=== PATIENT | female | born 1980 | race Caucasian/White ===

== ENCOUNTER 2021-09-29 13:24 | Emergency (ER) | payer OTHER, SELFPAY ==
[2021-09-29 13:32] VITALS: BP 144/77; PULSE 102; RESP 17; TEMP 36.4; O2SAT 100
--- NOTE | 2021-09-29 14:52 | ED.EAR ---
HPI - Ear Problem General Chief complaint: Ear Stated complaint: multiple complaints Time Seen by Provider: 09/29/21 13:47 History of Present Illness HPI Narrative: Patient is a 41-year-old female who presents ER with concerns of right ear pain. Ongoing over the last few days. Is been associate with sinus congestion sore throat. No cough. She notices some increased lymphadenopathy in her neck. She reports she has had a sinus infection for a while but now she is concerned something different is going on. Reports chronic tinnitus that is unchanged related to this pain. She has no fevers or chills or sweats. No difficulty with breathing or swallowing. She has been taking daily antihistamines. She is unable to take Flonase due to nosebleeds. Related Data Allergies Allergy/AdvReac Type Severity Reaction Status Date / Time artichoke Allergy Severe HIVES Verified 09/29/21 13:35 morphine Allergy Severe BURNING AT Verified 09/29/21 13:35 THE SITE NSAIDS (Non-Steroidal Allergy Severe ASTHMA/HIVE Verified 09/29/21 13:35 Anti-Inflamma S peanut Allergy Severe HIVES Verified 09/29/21 13:35 Sulfa (Sulfonamide Allergy Severe ASTHMA/HIVE Verified 09/29/21 13:35 Antibiotics) S tramadol Allergy Severe HIVES Verified 09/29/21 13:35 latex Allergy Intermediate Rash Verified 09/29/21 13:35 pomegranate Allergy Intermediate HIVES Verified 09/29/21 13:35 aspirin Allergy Mild Dyspnea / Verified 09/29/21 13:35 SOB blue dye Allergy Mild Unknown Verified 09/29/21 13:35 codeine Allergy Mild Dyspnea / Verified 09/29/21 13:35 SOB ibuprofen Allergy Mild Unknown Verified 09/29/21 13:35 peanut oil Allergy Mild Unknown Verified 09/29/21 13:35 Penicillins Allergy Mild Unknown Verified 09/29/21 13:35 NEPALESE SAUSAGE Allergy Severe DIARRHEA/HI Uncoded 10/12/16 04:03 VES TILAPIA Allergy Severe SWOLLEN Uncoded 10/12/16 04:03 GLANDS Cueto Armnedariz Allergy Intermediate SORE THROAT Uncoded 10/12/16 04:03 BLUEBERRIES Allergy Mild Unknown Uncoded 09/29/21 13:35 Review of Systems Constitutional: Constitutional: Denies chills, Denies fever(s) and Denies weakness ENT: Denies dizziness, Reports nasal congestion and Reports sore throat Comments: Right ear discomfort, bilateral tinnitus chronic Respiratory: Respiratory: Denies cough, Denies dyspnea and Denies wheezing PMF Past Medical History Medical History (Updated 09/29/21 @ 15:00 by Miah Tran MD) Anxiety Depression Hypercholesterolemia Hypertension Surgical History Surgical History (Updated 09/29/21 @ 15:00 by Miah Tran MD) History of section Exam Narrative: GENERAL: Well-appearing, morbidly obese, and in no acute distress. HEAD: Normocephalic, atraumatic. EYES: PERRL and EOMI. ENT: Mucous membranes moist. Mild pharyngeal erythema without tonsillar hypertrophy or exudate. Uvula midline and nonedematous. Ear canals free of cerumen bilaterally. Tympanic membranes normal in appearance and nonbulging. NECK: Supple. CHEST: Clear to auscultation. No respiratory distress. HEART: Regular rate and rhythm. Normal peripheral pulses. EXTREMITIES: Normal range of motion. No edema. NEURO: Alert and oriented x3. PSYCH: Normal mood and affect. Course Course Emergency Course: Strep negative. Recommend supportive care with [id number] medications. Vital Signs Vital signs: Vital Signs Temperature 97.6 F 09/29/21 13:32 Pulse Rate 102 H 09/29/21 13:32 Respiratory Rate 17 09/29/21 13:32 Blood Pressure 144/77 H 09/29/21 13:32 Pulse Oximetry 100 09/29/21 13:32 Temperature 97.6 F 09/29/21 13:32 Pulse Rate 102 H 09/29/21 13:32 Respiratory Rate 17 09/29/21 13:32 Blood Pressure 144/77 H 09/29/21 13:32 Pulse Oximetry 100 09/29/21 13:32 Medical Decision Making Vital Signs Vital Signs: Vital Signs Temperature 97.6 F 09/29/21 13:32 Pulse Rate 102 H 09/29/21 13:32 Respiratory Rate 17 09/29/21 13:32 Blood Pres
== END 2021-09-29 15:07 | disposition home or self-care (01) ==
PROVIDERS: Emergency Provider Emergency Medicine; PCP Emergency Medicine
DX: J06.9 Acute upper respiratory infection, unspecified (principal); E78.00 Pure hypercholesterolemia, unspecified; I10 Essential (primary) hypertension
CPT/HCPCS: 87081; 87880; 99283

== ENCOUNTER 2021-11-03 16:32 | Inpatient (IN) | payer OTHER, SELFPAY ==
[2021-11-03] VITALS (12 sets, daily range): BP systolic 111–125; BP diastolic 55–85; PULSE 88–103; RESP 16–22; TEMP 36.6; O2SAT 90–98
--- NOTE | ~2021-11-03 | XR_ITS ---
EXAMINATION: XR chest 2V DATE: 11/09/2021 10:03 INDICATION: Left lung abscess TECHNIQUE: PA and lateral views of the chest were obtained. COMPARISON: Chest radiograph dated 11/07/[address] dated 11/03/2021 FINDINGS: Slight improvement in airspace opacities in the left lower lobe corresponding to cavitary pneumonia o n prior CT. No new airspace opacities, pulmonary edema, pleural effusion or pneumothorax. The cardiom ediastinal silhouette is normal. Mild thoracic spondylosis with chronic mild anterior wedging of a fe w lower thoracic vertebral bodies. IMPRESSION: 1. Slight improvement in left lower lobar cavitary pneumonia. Reviewed, dictated and finalized at location B.
--- NOTE | ~2021-11-03 | XR_ITS ---
EXAMINATION: XR chest 2V DATE: 11/07/2021 08:33 INDICATION: Pneumonia. Cough. TECHNIQUE: Frontal and lateral views of the chest were obtained. COMPARISON: Chest 2 views 11/03/2021, chest CT 11/03/2021 FINDINGS: There are airspace opacities with cavitation in left lower lobe. No pleural effusion or pne umothorax. The heart size is normal. IMPRESSION: 1. Stable cavitary pneumonia involving left lung lower lobe. Follow-up radiographs are recommended in a few weeks to confirm resolution and exclude malignancy. Reviewed, dictated and finalized at location A. IMPRESSION: 1. Stable cavitary pneumonia involving left lung lower lobe. Follow-up radiogra phs are recommended in a few weeks to confirm resolution and exclude malignancy .
--- NOTE | ~2021-11-03 | XR_ITS ---
EXAMINATION: XR chest 2V Exam Date/Time: 11/03/2021 17:43 CDT HISTORY: cough, SOB, recent covid 10/26 Comparison: 06/04/2005. RESULT: Lines, tubes, and devices: None. Lungs and pleura: Large, 5.8 cm air-fluid level containing air cyst in the left midlung, likely the left lower lobe, with peripheral consolidation. Cardiomediastinal silhouette: Stable cardiomediastinal silhouette. Other: No acute osseous or upper abdominal finding. IMPRESSION: Findings suspicious for cavitary pneumonia in the left lower lobe, consider CT of the chest for furth er evaluation. Reviewed, dictated and finalized at location K. IMPRESSION: Findings suspicious for cavitary pneumonia in the left lower lobe, consider CT of the chest for further evaluation.
--- NOTE | ~2021-11-03 | CT_ITS ---
EXAMINATION: CT diagnostic chest w con DATE: 11/03/2021 20:06 INDICATION: +/-cavitary PNA on XR, approved by [employer] TECHNIQUE: Computed tomography (CT) of the chest was performed with 100 mL Omnipaque-350 intravenous contrast. Automated exposure control and iterative reconstruction technique were employed. The dose-l ength product was 1023.55 mGy-cm. COMPARISON: X-ray chest, same date. FINDINGS: CHEST: Thoracic aorta: No significant dilation or calcification. Lung parenchyma and airways: The airways are clear. Large irregular and lobulated thick-walled and pa rtially fluid-filled cavitary lesion in the left lower lobe measuring 6.6 x 9.7 x 6.2 cm, with surrou nding peribronchial vascular, centrilobular opacities and septal thickening. Thoracic inlet, axillae and chest wall: No thyroid or soft tissue mass. No axillary lymphadenopathy. Mediastinum: No mass or lymphadenopathy. Small hiatal hernia. Calcified hilar nodes. Heart and pericardium: Normal heart size. No pericardial effusion. Coronary artery calcifications: Absent. Pleura: No effusion or mass. Upper abdomen: Cholestatic. Splenomegaly. Thoracic bones: No acute osseous finding in the chest. IMPRESSION: Large left lower lobe cavitary lesion, likely representing necrotizing pneumonia. This should be foll owed after appropriate therapy to ensure resolution. Splenomegaly. Reviewed, dictated and finalized at location K. IMPRESSION: Large left lower lobe cavitary lesion, likely representing necrotizing pneumoni a. This should be followed after appropriate therapy to ensure resolution. Sple nomegaly.
--- NOTE | 2021-11-03 17:11 | ED.GENADULT ---
HPI - General Adult General Chief complaint: Unspecified <Carla Garnett PA-C - Last Filed: 11/04/21 02:14> Stated complaint: I don't know why I'm hoarse <NEGRA Kline Last Filed: 11/04/21 02:14> Time Seen by Provider: 11/03/21 16:54 <NEGRA Kline Last Filed: 11/04/21 02:14> Source: patient <NEGRA Kline Last Filed: 11/04/21 02:14> Mode of arrival: ambulatory <NEGRA Kline Last Filed: 11/04/21 02:14> Limitations: no limitations <NEGRA Kline Last Filed: 11/04/21 02:14> History of Present Illness HPI narrative: Patient is a 41-year-old female who presents to the ED with report of cough and difficulty breathing. Patient reports she was admitted to [facility] last week and diagnosed with COVID-19 pneumonia. She states she was started on IV Clindamycin while she was at [place] and discharged home on the with PO Clinda. She stated it gave her stomach upset, so she stopped taking it. She quarantined at home until the , but has had increasing productive cough and difficulty breathing since being at home. She does have a history of asthma and has been using her albuterol inhaler without relief. She does not have nebulizers at home. Denies any chest pain. Denies any fever, chills, abdominal pain, nausea, vomiting. She has had congestion, hoarseness, and lower extremity swelling. She states she was diagnosed with cardiomegaly and possible heart failure in the past, and did have an echocardiogram but never heard the results of these. She was also on diuretic therapy while admitted at [facility], but was not discharged home on anything. <Carla Garnett PA-C - Last Filed: 11/04/21 02:14> Related Data Home medications: Home Medications Medication Instructions Recorded Confirmed albuterol sulfate 2.5 mg/3 mL ml 11/03/21 (0.083 %) solution for nebulization cetirizine 10 mg tablet tablet 11/03/21 clindamycin HCl 150 mg capsule cap 11/03/21 diltiazem HCl 120 mg cap PO 11/03/21 capsule,extended release 24 hr (Cardizem CD) famotidine 20 mg tablet tablet 11/03/21 11/03/21 mometasone-formoterol HFA 200 inh inhalation 11/03/21 mcg-5 mcg/actuation aerosol inhaler (Dulera) <Carla Garnett PA-C - Last Filed: 11/04/21 02:14> Allergies/adverse reactions: Allergies Allergy/AdvReac Type Severity Reaction Status Date / Time artichoke Allergy Severe HIVES Verified 11/03/21 16:42 morphine Allergy Severe BURNING AT Verified 11/03/21 16:42 THE SITE NSAIDS (Non-Steroidal Allergy Severe ASTHMA/HIVE Verified 11/03/21 16:42 Anti-Inflamma S peanut Allergy Severe HIVES Verified 11/03/21 16:42 Sulfa (Sulfonamide Allergy Severe ASTHMA/HIVE Verified 11/03/21 16:42 Antibiotics) S tramadol Allergy Severe HIVES Verified 11/03/21 16:42 latex Allergy Intermediate Rash Verified 11/03/21 16:42 pomegranate Allergy Intermediate HIVES Verified 11/03/21 16:42 aspirin Allergy Mild Dyspnea / Verified 11/03/21 16:42 SOB blue dye Allergy Mild Unknown Verified 11/03/21 16:42 codeine Allergy Mild Dyspnea / Verified 11/03/21 16:42 SOB ibuprofen Allergy Mild Unknown Verified 11/03/21 16:42 peanut oil Allergy Mild Unknown Verified 11/03/21 16:42 Penicillins Allergy Mild Unknown Verified 11/03/21 16:42 THAI SAUSAGE Allergy Severe DIARRHEA/HI Uncoded 10/12/16 04:03 VES TILAPIA Allergy Severe SWOLLEN Uncoded 10/12/16 04:03 GLANDS Cueto Armendariz Allergy Intermediate SORE THROAT Uncoded 10/12/16 04:03 BLUEBERRIES Allergy Mild Unknown Uncoded 09/29/21 13:35 <Carla Garnett PA-C - Last Filed: 11/04/21 02:14> Review of Systems Review of Systems: CONSTITUTIONAL: Denies fever, chills, or sweats. ENT: Reports ST, hoarseness, rhinorrhea, congestion. CARDIOVASCULAR: Reports BLE edema. Denies chest pain. RESPIRATORY: Reports productive cough and dyspnea. GASTROINTESTINAL: Denies abdominal pain, nausea
--- NOTE | 2021-11-03 17:30 | ECG_ITS ---
Measurements Intervals [place] Rate: 86 P: 7 CA: 123 QRS: 9 QRSD: 72 T: 32 QT: 349 QTc: 419 Interpretive Statements SINUS RHYTHM LOW QRS VOLTAGE IN PRECORDIAL LEADS BORDERLINE ECG NO PREVIOUS ECG AVAILABLE FOR COMPARISON Electronically Signed On 11-04-2021 9:15:11 CDT by Rhett Caceres M.D.
[2021-11-03 18:25] LABS: Appearance Urine Slightly Cloudy (Clear); Bilirubin Urine Negative (Negative); Blood Urine 2+ (Negative); Color Urine Yellow (Yellow); Glucose Urine UA Negative (Negative); Ketones Urine Negative (Negative); Leukocyte Esterase Ur 3+ LEU/UL (Negative); Nitrate Urine Negative (Negative); Protein Urine 1+ mg/dL (Negative); Specific Grav Ur 1.015 (1.001-1.035); Urobilinogen Urine 0.2 mg/dL (<2.0); pH Urine 8.5 (5.0-9.0)
[2021-11-03 18:29] LABS: Bacteria Urine Trace /hpf; Mucus Urine Rare /lpf; RBC Urine 21-50 /hpf (0-2); Squamous Epithelial Cell Urine Many /hpf (Few); WBC Urine 51-75 /hpf
[2021-11-03 18:32] LABS: Add Urine Microscopic? YES
[2021-11-03 18:32] LABS: Alanine Aminotransferase 22 U/L (6-35); Albumin Level 3.5 g/dL (3.5-5.1); Alkaline Phosphatase 120 U/L (38-126); Anion Gap 1 mmol/L (8-16); Aspartate Amino Transferase 37 U/L (14-36); Bilirubin,Total 0.3 mg/dL (0.2-1.3); Blood Urea Nitrogen 9 mg/dL (7-17); Carbon Dioxide 38 mmol/L (22-30); Chloride 97 mmol/L (98-107); Estimated CRCL calculation 107 ml/min; Estimated Glomerular Filt Rate > 60; Glucose 96 mg/dL (65-110); Potassium 4.8 mmol/L (3.4-5.0); Sodium 136 mmol/L (137-145)
[2021-11-03 18:44] LABS: Basophils Absolute Auto 0.1 K/mm3 (0.0-0.1); Basophils Percent Auto 0.4 % (0.2-1.2); Eosinophils Absolute Auto 0.3 K/mm3 (0-0.3); Eosinophils Percent Auto 1.7 % (0-4.4); Hematocrit 35.5 % (37.0-47.0); Hemoglobin 10.4 g/dL (12.0-15.0); Immature Granulocyte Absolute 0.18 K/mm3 (0.00-0.031); Immature Granulocyte Percent A 1.1 % (0-0.5); Lymphocytes Percent Auto 10.1 % (18.3-44.2); Mean Corpuscular HGB Conc 29.3 g/dl (32-36); Mean Corpuscular Hemoglobin 25.7 pg (26-34); Mean Corpuscular Volume 87.7 fl (80-100); Mean Platelet Volume 9.4 fl (7.4-10.4); Monocytes Absolute Auto 0.9 K/mm3 (0.1-0.6); Monocytes Percent Auto 5.6 % (2.6-8.5); Neutrophils Absolute Auto 13.6 K/mm3 (1.3-6.7); Neutrophils Percent Auto 81.1 % (45.5-73.1); Platelet Count Result 435 k/mm3 (150-375); Red Blood Count 4.05 M/mm3 (4.2-5.4); Red Cell Distribution Width 16.7 % (11.5-14.5); White Blood Count 16.8 K/mm3 (4.5-10.0)
[2021-11-03 18:56] LABS: NT Pro B Type Natriuretic Pept 104 pg/mL (5-100); Troponin I < 0.012 ng/mL (0.000-0.034)
--- NOTE | 2021-11-03 19:17 | PC.NURSE ---
Report received from SAVANA Earl. This nurse assumed care of patient at this time.
--- NOTE | 2021-11-03 19:32 | PC.NURSE ---
Patient voices concerns about her plan of care, requests to speak to provider. Mariola, notified.
--- NOTE | 2021-11-03 20:01 | PC.NURSE ---
Patient in imaging at this time.
[2021-11-03 20:26] LABS: Lactic Acid Reflex 1.1 mmol/L (0.7-2.0)
[2021-11-04] VITALS (38 sets, daily range): BP systolic 95–151; BP diastolic 47–120; PULSE 78–98; RESP 14–20; TEMP 36.6–36.7; O2SAT 91–100
--- NOTE | 2021-11-04 00:43 | PC.NURSE ---
Patient repositioned in the bed. Patient states she needs a cpap at night, states does not have one at home. Patient agreeable to wear 2L O2 via NC while resting here. ERP notified. Patient tolerating well.
--- NOTE | 2021-11-04 03:02 | PC.NURSE ---
Patient ambulates to the bathroom and back to her room with an even steady unassisted gait.
[2021-11-04] MEDS: ACETAMINOPHEN 500 MG TABLET 1000 MG PO ×2 (03:12→16:55)
--- NOTE | 2021-11-04 05:12 | PC.NURSE ---
called [facility] transfer to check on [facility] availability. [facility] still at capacity.
--- NOTE | 2021-11-04 12:12 | PC.NURSE ---
Patient states she does not want any lunch and is not hungry.
--- NOTE | 2021-11-04 15:38 | PC.NURSE ---
Spoke to [facility] transfer center, still awaiting bed placement.
--- NOTE | 2021-11-04 16:46 | PC.NURSE ---
Patient states she still does not have an appetite at this time. A box of Cheez-it and soda noted in ED room
--- NOTE | 2021-11-04 23:06 | PC.NURSE ---
Report received from SAVANA Mcbride. This nurse assumed care of patient at this time.
[2021-11-05] VITALS (7 sets, daily range): BP systolic 88–123; BP diastolic 51–84; PULSE 70–97; RESP 13–20; TEMP 36.6–37.3; O2SAT 94–99
--- NOTE | 2021-11-05 01:00 | PC.NURSE ---
called [facility] transfer center to check on bed availability. Still waiting- no bed available.
--- NOTE | 2021-11-05 01:06 | PC.NURSE ---
Still awaiting bed assignment at [facility]. Per ED corporate secretary Roma, no available bed assignment at this time.
[2021-11-05] MEDS: ONDANSETRON INJ 4 MG/2 ML VIAL IV PUSH (04:39)
[2021-11-05 05:58] LABS: Estimated CRCL calculation 107 ml/min; Estimated Glomerular Filt Rate > 60
--- NOTE | 2021-11-05 07:00 | PC.NURSE ---
Assumed care of pt. at this time. Report from SAVANA Krishnan. pt. resting comfortably on stretcher. No acute signs of distress. pt. requesting something for breakfast. Pt. provided with a menu and breakfast ordered.
[2021-11-05 07:46] LABS: Basophils Percent Auto 0.3 % (0.2-1.2); Eosinophils Absolute Auto 0.4 K/mm3 (0-0.3); Eosinophils Percent Auto 3.1 % (0-4.4); Hematocrit 33.5 % (37.0-47.0); Hemoglobin 9.9 g/dL (12.0-15.0); Immature Granulocyte Absolute 0.12 K/mm3 (0.00-0.031); Lymphocytes Percent Auto 6.8 % (18.3-44.2); Mean Corpuscular HGB Conc 29.6 g/dl (32-36); Mean Corpuscular Hemoglobin 25.6 pg (26-34); Mean Corpuscular Volume 86.8 fl (80-100); Mean Platelet Volume 9.7 fl (7.4-10.4); Monocytes Absolute Auto 0.7 K/mm3 (0.1-0.6); Neutrophils Absolute Auto 9.8 K/mm3 (1.3-6.7); Neutrophils Percent Auto 82.8 % (45.5-73.1); Platelet Count Result 362 k/mm3 (150-375); Red Blood Count 3.86 M/mm3 (4.2-5.4); Red Cell Distribution Width 16.7 % (11.5-14.5); White Blood Count 11.8 K/mm3 (4.5-10.0)
[2021-11-05 07:48] LABS: Glucose Point of Care 114 mg/dl (65-105)
[2021-11-05 07:55] LABS: Alanine Aminotransferase 19 U/L (6-35); Albumin Level 3.4 g/dL (3.5-5.1); Alkaline Phosphatase 98 U/L (38-126); Anion Gap 3 mmol/L (8-16); Aspartate Amino Transferase 35 U/L (14-36); Bilirubin,Total 0.2 mg/dL (0.2-1.3); Blood Urea Nitrogen 9 mg/dL (7-17); Calcium 8.1 mg/dL (8.4-10.2); Carbon Dioxide 35 mmol/L (22-30); Chloride 95 mmol/L (98-107); Estimated CRCL calculation 97 ml/min; Estimated Glomerular Filt Rate > 60; Glucose 115 mg/dL (65-110); Potassium 4.4 mmol/L (3.4-5.0); Sodium 133 mmol/L (137-145)
[2021-11-05 08:08] LABS: Hypochromasia 1+ (NORMAL); Platelet Estimate Adequate (Adequate)
--- NOTE | 2021-11-05 08:20 | PC.NURSE ---
contacted [facility] states pt. does not have any bed available at this time.
--- NOTE | 2021-11-05 11:03 | PC.NURSE ---
patient referred to this rn as an Idiot because this rn was unwilling to draw labs through iv access and refused attempts at veinpuncture
[2021-11-05 11:34] LABS: Vancomycin Trough 21.9 ug/mL (10.0-20.0)
[2021-11-05] MEDS: PANTOPRAZOLE 40 MG TABLET PO (21:09)
[2021-11-05] MEDS: ACETAMINOPHEN 500 MG TABLET 1000 MG (21:21)
[2021-11-06 02:05] VITALS: BP 95/60; PULSE 70; RESP 18; O2SAT 100
--- NOTE | 2021-11-06 03:01 | PC.NURSE ---
Spoke to Magui at [facility] Transfer Center for status on bed...[facility] is at capacity, no bed tonight.
--- NOTE | 2021-11-06 03:32 | PC.NURSE ---
Pt offered a hospital bed or a recliner and the pt accepted the recliner. Recliner placed in room for pt use.
--- NOTE | 2021-11-06 03:59 | PC.NURSE ---
Per Loin Trimmer Alyse, no new updates on bed assignment for pt transfer at [facility].
[2021-11-06] MEDS: ONDANSETRON INJ 4 MG/2 ML VIAL IV PUSH (04:48)
[2021-11-06 04:51] VITALS: BP 95/59; PULSE 85; RESP 20; O2SAT 100
--- NOTE | 2021-11-06 06:15 | PC.NURSE ---
Pt noted to have pain and redness to the medial antecubital and noted she wants an MD to evaluate her. MD Romain Babb notified.
--- NOTE | 2021-11-06 07:29 | PC.NURSE ---
Assumed care of patient. Pt. currently resting in bed.
[2021-11-06 10:15] VITALS: BP 118/70; PULSE 62; RESP 12; TEMP 36.6; O2SAT 99
[2021-11-06] MEDS: ACETAMINOPHEN 500 MG TABLET 1000 MG PO (16:43)
[2021-11-06 18:26] VITALS: BP 110/60; PULSE 67; RESP 12; O2SAT 98
[2021-11-06 21:21] VITALS: BP 99/81; PULSE 66; RESP 20; O2SAT 99
--- NOTE | 2021-11-06 21:29 | ECG_ITS ---
Measurements Intervals [place] Rate: 62 P: 8 MO: 137 QRS: 14 QRSD: 85 T: 9 QT: 430 QTc: 437 Interpretive Statements SINUS RHYTHM WITH SINUS ARRHYTHMIA LOW QRS VOLTAGE IN PRECORDIAL LEADS [QRS DEFLECTION < 1.0 mV IN CHEST LEADS] COMPARED TO ECG 11/03/2021 17:41:06 HEART RATE IS REDUCED TO NO OTHER CHANGE Electronically Signed On 11-09-2021 15:56:03 CDT by Paul Contreras M.D.
[2021-11-07] VITALS (9 sets, daily range): BP systolic 100–118; BP diastolic 47–72; PULSE 62–89; RESP 16–24; TEMP 36.3–37; O2SAT 95–100; BMI 52.8
[2021-11-07 08:30] LABS: Basophils Percent Auto 0.4 % (0.2-1.2); Eosinophils Absolute Auto 0.4 K/mm3 (0-0.3); Eosinophils Percent Auto 6.8 % (0-4.4); Hematocrit 32.9 % (37.0-47.0); Hemoglobin 9.6 g/dL (12.0-15.0); Immature Granulocyte Absolute 0.06 K/mm3 (0.00-0.031); Immature Granulocyte Percent A 1.1 % (0-0.5); Lymphocytes Absolute Auto 1.42 K/mm3 (0.9-3.2); Lymphocytes Percent Auto 26.8 % (18.3-44.2); Mean Corpuscular HGB Conc 29.2 g/dl (32-36); Mean Corpuscular Hemoglobin 25.9 pg (26-34); Mean Corpuscular Volume 88.7 fl (80-100); Mean Platelet Volume 9.7 fl (7.4-10.4); Monocytes Absolute Auto 0.5 K/mm3 (0.1-0.6); Monocytes Percent Auto 9.3 % (2.6-8.5); Neutrophils Absolute Auto 2.9 K/mm3 (1.3-6.7); Neutrophils Percent Auto 55.6 % (45.5-73.1); Platelet Count Result 375 k/mm3 (150-375); Red Blood Count 3.71 M/mm3 (4.2-5.4); Red Cell Distribution Width 16.2 % (11.5-14.5); White Blood Count 5.3 K/mm3 (4.5-10.0)
[2021-11-07 08:39] LABS: Anion Gap 1 mmol/L (8-16); Blood Urea Nitrogen 9 mg/dL (7-17); Calcium 8.4 mg/dL (8.4-10.2); Carbon Dioxide 37 mmol/L (22-30); Chloride 101 mmol/L (98-107); Estimated CRCL calculation 119 ml/min; Estimated Glomerular Filt Rate > 60; Glucose 107 mg/dL (65-110); Potassium 4.1 mmol/L (3.4-5.0); Sodium 139 mmol/L (137-145)
[2021-11-07 08:48] LABS: Platelet Estimate Adequate (Adequate)
[2021-11-07 08:49] LABS: Hypochromasia 1+ (NORMAL)
[2021-11-07] MEDS: ACETAMINOPHEN 325 MG TABLET 650 MG PO ×2 (09:04→22:51)
--- NOTE | 2021-11-07 11:18 | ADMGEN ---
This patient, Octavia Smith, was admitted to [facility] Bed Second Floor-1 (RM [id number]). Patient/family oriented to hospital policies and general routines including ID bracelet, bed and alarms, visiting hours, pain management, procedures, bathroom and other care routines, personal items, smoking policy, room service/diet, and visiting hours. Information on how to activate the Rapid Response Team has been discussed. Patient/Family are encouraged to report perceived risks to care and to ask questions if they do not understand what they are told or what they should do.
--- NOTE | 2021-11-07 15:36 | PM.IMHP ---
H&P: HPI History of Present Illness Date/Time: 11/07/21 15:36 Chief Complaint: Pneumonia Narrative: Date of service: 11/07/2021 Octavia Smith is a 41-year-old female with a history of anxiety, hypertension, asthma, untreated obstructive sleep apnea, and IBS who presented to the emergency department on 11/03/2021 with complaints of shortness of breath. She states this all started on 10/16/2021. She was on a road trip to [place], [place] when she developed left-sided chest wall and arm pain to the point where she could not get comfortable. She decided to stop by a local ER and at that time she was found to have low-grade fever of 100.6?. She reports ?they told me I had an enlarged heart and soft lung but no petechia for any further explanation of this. She completed a 7 day course of prednisone and stated she felt ?decent? after this. About a week later, she again developed pain in the left thorax and she went to [place] [facility]. When she was there she developed a cough productive of foamy, purulence foul smelling sputum that she stated was green-yellow in color and progressed to dark brown-red in color. She states at that time she was diagnosed with MRSA and treated with IV antibiotics (she cannot recall which) and discharged with a 21 day course of clindamycin (450 mg q6h). She was taking this at home for about 5 days and was told she needed to quarantine. Her symptoms did not improve and she continued to have rather significant shortness of breath and therefore presented to the [place] emergency department on 11/03/2021. On presentation to the ED, her vital signs were stable, she was afebrile, she had leukocytosis and thrombocytosis, with normal lactic acid, CXR showed findings suspicious for cavitary pneumonia in the left lower lobe and chest CT showed large left lower lobe cavitary lesions likely representing necrotizing pneumonia. ED provider contact [facility] for possible CT surgery/IR intervention and patient was accepted for transfer to [facility] under Dr. Mcqueen. She was started on Primaxin and Vancomycin while awaiting bed availability at [facility]. On 11/07/21 the patient had been in the ED for >90 hours, therefore was felt patient would be best served by being admitted to the hospital while awaiting transfer and will be seen in consultation by Pulmonology. A CXR was repeated which showed stable cavitary pneumonia. At the time of my evaluation, the patient is feeling better. She continues to endorse shortness of breath. Her cough has improved and she denies sputum production. She denies fevers or chills. She does endorse KAHN and states she can hear herself wheezing. Review of Systems Review of Systems: All systems reviewed with pertinent positives and negatives as per HPI. Additionally, patient endorses nausea since taking clindamycin. She denies omitting. She does endorse decreased appetite. She occasionally feels lightheaded but denies dizziness. She continues to have occasional discomfort of the left thorax but overall has improved. She denies chest pain or tightness. She does endorse a headache and also has some neck pain which she believes is due to lying in bed in on comfortable position. She states her legs have been swollen, though with further questioning this appears to be a chronic issue. She also endorses chronic neuropathy of the lower extremities. She reports she has had 2 bowel movements while in the ED and she did have bright red blood in the stool. She denies any history of hemorrhoids. In regards to her chronic asthma, she states it is poorly controlled. She endorses daily symptoms and has symptoms that awaken her at night. [facility] Past Medical History Medical History (Updated 11/07/21 @ 16:09 by Sandrine Figueroa PA-C) Anxiety Asthma Carpal tunnel syndrome Depression History of esophageal dilatation Hypercholesterolemia Hypertension IBS (irritable bowel syndrome) Morbid obesity Neur
[2021-11-07] MEDS: PANTOPRAZOLE 40 MG TABLET PO (16:38)
--- NOTE | 2021-11-07 17:08 | PM.CNPUL ---
Assessment and Plan Assessment and plan (1) Lung abscess: Code(s): J85.2 - Abscess of lung without pneumonia Status: Acute Assessment and Plan: patient with morbid obesity, asthma, COVID pneumonia, and by history a lung abscess with purulent sputum noted on 10/21/2021 and admitted to [facility] and prescribed clindamycin for 21 days. Of note the patient has a penicillin allergy. The patient was scheduled to follow up with Pulmonary on 11/16/2021. The patient was also told she has MRSA but does not know if this was in her sputum or blood or how this was diagnosed. We are waiting to receive medical records and imaging from [facility]. Currently the patient returns on 11/03/2021 with worsening shortness of breath and wheezes. She had a leukocytosis left lower lobe thick-walled cavity with an air-fluid level consistent with a lung abscess and has been treated with vancomycin and imipenem. clinically she has responded as she feels better, her leukocytosis has resolved and she is afebrile. Blood cultures have been negative. I ordered a sputum culture today. The current CT scan on 11/03/21 was obtained after 13 days of antibiotics including an inpatient regimen and an outpatient regimen of clindamycin which the patient tells me she has been taking. Given her recurrent symptoms, leukocytosis, and presence of a large LLL abscess with air fluid level on ouor CT scan from 11/03/2021, I am concerned that the patient has a lung abscess that is not responding to medical therapy with antibiotics. Comparison to CT scan from [facility] is needed. Continue vancomycin and imipenem at this time while she is awaiting transfer to [facility] for consultation with Infectious Disease and thoracic surgery neither which are available at our hospital (patient refuses [facility] Currently the patient does appear to be improving with vancomycin and imipenem and my plan would be to repeat a CT of the chest after 1 week (on 11/10/2021) of vancomycin and imipenem to reassess for improvement in abscess. Will follow with you. (2) Asthma: Code(s): J45.909 - Unspecified asthma, uncomplicated Status: Acute Assessment and Plan: Patient carries a history of asthma controlled on Ventolin and p.r.n. Dulera which she was taking about every other day per her report. Currently the patient is having no active wheezing Although she does describe some chest tightness. Given that she has an active infection at this time number I will place her on scheduled albuterol 2.5 mg q.4 hours while awake. If she has any evidence of worsening asthma I will initiate inhaled corticosteroids.. History of Present Illness History of Present Illness Consult date: 11/07/21 Chief complaint: lung abscess,necrotizing pneumonia Narrative: 11/07/2021: This is a new Pulmonary consultation for left lower lobe lung abscess 41-year-old woman with a history of asthma, hypertension, untreated sleep apnea for 10 years, who developed shortness of breath on 10/16. Patient was traveling to [place] and went to an emergency room on 10/17 with shortness of breath, left-sided numbness in left-sided chest pain, lightheadedness and in the emergency room at that hospital she was told she had a chest x-ray that demonstrated an enlarged heart and a soft lung. A COVID test at that time was negative. Patient was treated with prednisone taper and an inhaler. She does not know the name of the inhaler. Patient drove back to this area on 10/18/2021 and contacted her private physician at [facility] and had an echocardiogram and lower extremity Dopplers. No results were of her relayed to the patient. I do not have those results as well. The patient continued with shortness of breath and on 10/21 the patient noticed that she had purulence tasting and smelling sputum that was yellow to gree
--- NOTE | 2021-11-07 19:02 | PC.NURSE ---
admitted to [id number] from er 11/07/21, no bed assignments from slu. last call to slu about bed at 0515 11/07/21, still no beds available.
[2021-11-07] MEDS: ALBUTEROL SULFATE NEB 2.5 MG/3 ML INH INHALATION (19:54)
[2021-11-07] MEDS: ACETAMINOPHEN/BUTALBITAL/CAFFEINE 325-50-40 MG TABLET (FIORICET) 1 TAB PO (22:48)
[2021-11-07] MEDS: guaiFENesin 12 HR 600 MG TABCR PO (23:01)
[2021-11-08] VITALS (9 sets, daily range): BP systolic 98–108; BP diastolic 62–78; PULSE 62–81; RESP 18–24; TEMP 36.2–37.1; O2SAT 95–100
[2021-11-08 00:23] LABS: Vancomycin Trough 8.6 ug/mL (10.0-20.0)
[2021-11-08 06:48] LABS: Hematocrit 30.2 % (37.0-47.0); Hemoglobin 9.2 g/dL (12.0-15.0); Mean Corpuscular HGB Conc 30.5 g/dl (32-36); Mean Corpuscular Volume 85.3 fl (80-100); Mean Platelet Volume 9.6 fl (7.4-10.4); Platelet Count Result 382 k/mm3 (150-375); Red Blood Count 3.54 M/mm3 (4.2-5.4); Red Cell Distribution Width 16.1 % (11.5-14.5); White Blood Count 4.7 K/mm3 (4.5-10.0)
[2021-11-08 06:58] LABS: Anion Gap 1 mmol/L (8-16); Blood Urea Nitrogen 10 mg/dL (7-17); Calcium 8.3 mg/dL (8.4-10.2); Carbon Dioxide 32 mmol/L (22-30); Chloride 103 mmol/L (98-107); Estimated CRCL calculation 119 ml/min; Estimated Glomerular Filt Rate > 60; Glucose 116 mg/dL (65-110); Potassium 4.1 mmol/L (3.4-5.0); Sodium 136 mmol/L (137-145)
[2021-11-08] MEDS: ALBUTEROL SULFATE NEB 2.5 MG/3 ML INH INHALATION ×2 (07:13→20:07)
[2021-11-08] MEDS: guaiFENesin 12 HR 600 MG TABCR PO ×2 (08:23→20:32)
[2021-11-08] MEDS: PANTOPRAZOLE 40 MG TABLET PO ×2 (08:23→17:19)
[2021-11-08] MEDS: LORATADINE 10 MG TABLET PO (08:23)
--- NOTE | 2021-11-08 09:08 | PM.CNPUL ---
Assessment and Plan Assessment and plan (1) Lung abscess: Code(s): J85.2 - Abscess of lung without pneumonia Status: Acute Assessment and Plan: 11/07 patient with morbid obesity, asthma, COVID pneumonia, and by history a lung abscess with purulent sputum noted on 10/21/2021 and admitted to [place] and prescribed clindamycin for 21 days. Of note the patient has a penicillin allergy. The patient was scheduled to follow up with Pulmonary on 11/16/2021. The patient was also told she has MRSA but does not know if this was in her sputum or blood or how this was diagnosed. We are waiting to receive medical records and imaging from [facility]. Currently the patient returns on 11/03/2021 with worsening shortness of breath and wheezes. She had a leukocytosis left lower lobe thick-walled cavity with an air-fluid level consistent with a lung abscess and has been treated with vancomycin and imipenem. clinically she has responded as she feels better, her leukocytosis has resolved and she is afebrile. Blood cultures have been negative. I ordered a sputum culture today. The current CT scan on 11/03/21 was obtained after 13 days of antibiotics including an inpatient regimen and an outpatient regimen of clindamycin which the patient tells me she has been taking. Given her recurrent symptoms, leukocytosis, and presence of a large LLL abscess with air fluid level on our CT scan from 11/03/2021, I am concerned that the patient has a lung abscess that has failed previous antibiotics. Comparison to CT scan from [facility] is needed. Continue vancomycin and imipenem at this time while she is awaiting transfer to [facility] (waiting for a bed since 11/03) for consultation with Infectious Disease and thoracic surgery neither which are available at our hospital (patient refuses [facility] and [facility] is not accepting any patients currently). Currently the patient does appear to be improving with vancomycin and imipenem and my plan would be to repeat a CT of the chest after 1 week (on 11/10/2021) of vancomycin and imipenem to reassess for improvement in abscess. 11/08 Patient continues to slowly improve. The cough is resolved. She has no putrid phlegm. She reports a bloody bowel movement. she is afebrile. White blood cell count 4.7. Overall she says that she is 50% back to her baseline and this is the best that she is felt since this started on 10/18/2021. I have told the patient that she should have her family have [facility] Burn a disc with her imaging and bring this disc to us so that we can review her previous chest x-rays and CT scan. Will follow with you. (2) Asthma: Onset Date: Unknown Code(s): J45.909 - Unspecified asthma, uncomplicated Status: Acute Assessment and Plan: Patient carries a history of asthma controlled on Ventolin and p.r.n. Dulera which she was taking about every other day per her report. Currently the patient is having no active wheezing Although she does describe some chest tightness. Given that she has an active infection at this time number I will place her on scheduled albuterol 2.5 mg q.4 hours while awake. If she has any evidence of worsening asthma I will initiate inhaled corticosteroids. 11/08: Stable respiratory pattern. No wheezes. Continue albuterol standing at q.4 hours while awake at this time. History of Present Illness History of Present Illness Consult date: 11/08/21 Chief complaint: lung abscess,necrotizing pneumonia Narrative: 11/07/2021:? This is a new Pulmonary consultation for left lower lobe lung abscess ?41-year-old woman with a history of asthma,? hypertension, untreated sleep apnea for 10 years, who developed shortness of breath on 10/16.? Patient was traveling to [place] and went to an emergency room on 10/17 with shortness of breath, left-sided numbness in left-sided chest pain, lightheadedness and in the emergency room at
--- NOTE | 2021-11-08 09:19 | PM.PNPUL ---
Progress Note: A&P Assessment and Plan (1) Lung abscess: Code(s): J85.2 - Abscess of lung without pneumonia Status: Acute Assessment and Plan: 11/07 patient with morbid obesity, asthma, COVID pneumonia, and by history a lung abscess with purulent sputum noted on 10/21/2021 and admitted to [place] and prescribed clindamycin for 21 days. Of note the patient has a penicillin allergy. The patient was scheduled to follow up with Pulmonary on 11/16/2021. The patient was also told she has MRSA but does not know if this was in her sputum or blood or how this was diagnosed. We are waiting to receive medical records and imaging from [facility]. Currently the patient returns on 11/03/2021 with worsening shortness of breath and wheezes. She had a leukocytosis left lower lobe thick-walled cavity with an air-fluid level consistent with a lung abscess and has been treated with vancomycin and imipenem. clinically she has responded as she feels better, her leukocytosis has resolved and she is afebrile. Blood cultures have been negative. I ordered a sputum culture today. The current CT scan on 11/03/21 was obtained after 13 days of antibiotics including an inpatient regimen and an outpatient regimen of clindamycin which the patient tells me she has been taking. Given her recurrent symptoms, leukocytosis, and presence of a large LLL abscess with air fluid level on our CT scan from 11/03/2021, I am concerned that the patient has a lung abscess that has failed previous antibiotics. Comparison to CT scan from [facility] is needed. Continue vancomycin and imipenem at this time while she is awaiting transfer to [facility] (waiting for a bed since 11/03) for consultation with Infectious Disease and thoracic surgery neither which are available at our hospital (patient refuses [place] and [facility] is not accepting any patients currently). Currently the patient does appear to be improving with vancomycin and imipenem and my plan would be to repeat a CT of the chest after 1 week (on 11/10/2021) of vancomycin and imipenem to reassess for improvement in abscess. 11/08 Patient continues to slowly improve. The cough is resolved. She has no putrid phlegm. She reports a bloody bowel movement. she is afebrile. White blood cell count 4.7. Blood cultures negative. Overall she says that she is 50% back to her baseline and this is the best that she is felt since this started on 10/18/2021. Waiting for transfer to [facility]. Waiting for medical records from [place]. I have told the patient that she should have her family have [facility] Burn a disc with her imaging and bring this disc to us so that we can review her previous chest x-rays and CT scan. Will follow with you. (2) Asthma: Onset Date: Unknown Code(s): J45.909 - Unspecified asthma, uncomplicated Status: Acute Assessment and Plan: Patient carries a history of asthma controlled on Ventolin and p.r.n. Dulera which she was taking about every other day per her report. Currently the patient is having no active wheezing Although she does describe some chest tightness. Given that she has an active infection at this time number I will place her on scheduled albuterol 2.5 mg q.4 hours while awake. If she has any evidence of worsening asthma I will initiate inhaled corticosteroids. 11/08: Stable respiratory pattern. No wheezes. Continue albuterol standing at q.4 hours while awake at this time. Subjective Date/time seen: 11/08/21 09:19 Interval history: 11/07/2021:? This is a new Pulmonary consultation for left lower lobe lung abscess ?41-year-old woman with a history of asthma,? hypertension, untreated sleep apnea for 10 years, who developed shortness of breath on 10/16.? Patient was traveling to [place] and went to an emergency room on 10/17 with shortness of breath, left-sided numbness in left-sided rosalva
[2021-11-08] MEDS: ACETAMINOPHEN 325 MG TABLET 650 MG PO ×2 (13:51→22:17)
--- NOTE | 2021-11-08 14:13 | PCRCNOTE ---
Window of time for administration has passed. See next scheduled administration.
--- NOTE | 2021-11-08 14:16 | P.CDI_ITS ---
CDI Query Clarification Request Please clarify the status of the patient's COVID-19 infection, if known. Risk Factors: ER note from 11/04/21 states admitted at [facility] last week and diagnosed with COVID-19 pneumonia . Patient histor of NELSON, morbid obesity, asthma. Clinical Indicators: CXR - cavitary pneumonia LLL, CT - large LLL cavitary lesions likely representing necrotizing pneumonia. Pulmonary consult lists morbid obesity, asthma, COVID pneumonia . * COVID-19 is a current/active infection * Current condition is a sequela of COVID-19 * Past history of COVID-19 * Other explanation of clinical findings (please specify) * Unable to determine
--- NOTE | 2021-11-08 14:35 | P.PNIM_ITS ---
Progress Note: A&P Assessment and Plan (1) Lung abscess: Code(s): J85.2 - Abscess of lung without pneumonia Status: Acute Assessment and Plan: Patient presented with increased shortness of breath. Initial imaging suspicious for cavitary pneumonia of the left lower lobe * Follow-up chest CT showed large left lower lobe cavitary lesion likely representing necrotizing pneumonia * [facility] Awaiting bed availability * Repeat CXR 11/05/2021 showed stable cavitary pneumonia of the left lung * Appreciate pulmonology consultation * Continue Primaxin and vancomycin * Blood cultures pending, negative to date * Sputum culture has been ordered, however patient reports nonproductive cough * Patient recently admitted to [place], reportedly treated for MRSA. Records requested for review * Supportive care. Incentive spirometry and Cornet valve. Expectorants as needed * Per pulmonology recommendations, plan to repeat chest CT on 11/10/2021, 1 week following initiation of vancomycin and Primaxin * She is on 2 L supplemental O2. Wean oxygen as tolerated with goal saturation 92% or above (2) Asthma: Onset Date: Unknown Code(s): J45.909 - Unspecified asthma, uncomplicated Status: Acute Assessment and Plan: Patient with poorly controlled asthma * Albuterol nebs q4h while awake * Hold home Dulera due to acute respiratory infection (3) Hypertension: Code(s): I10 - Essential (primary) hypertension Status: Acute Assessment and Plan: Blood pressure reviewed and has been typically running low. Last BP 98/62 * Patient reports she was taken off of her antihypertensives at her last hospitalization * Hold losartan and diltiazem * Monitor BP trends (4) NELSON (obstructive sleep apnea): Code(s): G47.33 - Obstructive sleep apnea (adult) (pediatric) Status: Acute Assessment and Plan: Patient with untreated sleep apnea. States she cannot tolerate CPAP (5) Bright red rectal bleeding: Code(s): K62.5 - Hemorrhage of anus and rectum Status: Acute Assessment and Plan: Patient reports 3 episodes of bloody stools. * She did produce a photo to share with me that revealed bright red blood in the toilet bowl with brown stool * Most likely related to hemorrhoid * Monitor H&H. Total of 1.2 point drop in hemoglobin since admission. May in part be dilutional. * Patient is asymptomatic * Continue Protonix 40 mg b.i.d. * Consider GI evaluation if persistent. At this time, outpatient follow-up is appropriate and she will be referred to GI on discharge/transfer Subjective Date/time seen: 11/08/21 14:35 Interval history: Date of service: 11/08/2021 Octavia Smith is a 41-year-old female with a history of anxiety, hypertension, asthma, untreated obstructive sleep apnea, and IBS?who is seen in follow-up for lung abscess. She is feeling fatigued today. She states she did not sleep well last night. She states her shortness of breath is unchanged. She continues to endorse cough that is nonproductive of sputum. She denies wheezing. She does have a mild headache today. She occasionally feels ligh theaded if she stands up too fast. She has low back pain. She did have 1 bloody stool this morning. She denies hematemesis. Denies nausea, vomiting, fever, or chills. Review of Systems Review of Systems: All systems reviewed & are unremarkable except as noted in HPI and below Exam Narrative:
--- NOTE | 2021-11-08 14:35 | PM.IMPN ---
Progress Note: A&P Assessment and Plan (1) Lung abscess: Code(s): J85.2 - Abscess of lung without pneumonia Status: Acute Assessment and Plan: Patient presented with increased shortness of breath. Initial imaging suspicious for cavitary pneumonia of the left lower lobe Follow-up chest CT showed large left lower lobe cavitary lesion likely representing necrotizing pneumonia [facility] Awaiting bed availability Repeat CXR 11/05/2021 showed stable cavitary pneumonia of the left lung Appreciate pulmonology consultation Continue Primaxin and vancomycin Blood cultures pending, negative to date Sputum culture has been ordered, however patient reports nonproductive cough Patient recently admitted to [place], reportedly treated for MRSA. Records requested for review Supportive care. Incentive spirometry and Cornet valve. Expectorants as needed Per pulmonology recommendations, plan to repeat chest CT on 11/10/2021, 1 week following initiation of vancomycin and Primaxin She is on 2 L supplemental O2. Wean oxygen as tolerated with goal saturation 92% or above (2) Asthma: Onset Date: Unknown Code(s): J45.909 - Unspecified asthma, uncomplicated Status: Acute Assessment and Plan: Patient with poorly controlled asthma Albuterol nebs q4h while awake Hold home Dulera due to acute respiratory infection (3) Hypertension: Code(s): I10 - Essential (primary) hypertension Status: Acute Assessment and Plan: Blood pressure reviewed and has been typically running low. Last BP 98/ Patient reports she was taken off of her antihypertensives at her last hospitalization Hold losartan and diltiazem Monitor BP trends (4) NELSON (obstructive sleep apnea): Code(s): G47.33 - Obstructive sleep apnea (adult) (pediatric) Status: Acute Assessment and Plan: Patient with untreated sleep apnea. States she cannot tolerate CPAP (5) Bright red rectal bleeding: Code(s): K62.5 - Hemorrhage of anus and rectum Status: Acute Assessment and Plan: Patient reports 3 episodes of bloody stools. She did produce a photo to share with me that revealed bright red blood in the toilet bowl with brown stool Most likely related to hemorrhoid Monitor H&H. Total of 1.2 point drop in hemoglobin since admission. May in part be dilutional. Patient is asymptomatic Continue Protonix 40 mg b.i.d. Consider GI evaluation if persistent. At this time, outpatient follow-up is appropriate and she will be referred to GI on discharge/transfer Subjective Date/time seen: 11/08/21 14:35 Interval history: Date of service: 11/08/2021 Octavia Smith is a 41-year-old female with a history of anxiety, hypertension, asthma, untreated obstructive sleep apnea, and IBS?who is seen in follow-up for lung abscess. She is feeling fatigued today. She states she did not sleep well last night. She states her shortness of breath is unchanged. She continues to endorse cough that is nonproductive of sputum. She denies wheezing. She does have a mild headache today. She occasionally feels lightheaded if she stands up too fast. She has low back pain. She did have 1 bloody stool this morning. She denies hematemesis. Denies nausea, vomiting, fever, or chills. Review of Systems Review of Systems: All systems reviewed & are unremarkable except as noted in HPI and below Exam Narrative: General: Obese, will appearing, disheveled 41-year-old female, lying supine in bed, comfortable, NARD Neuro: awake, alert and oriented x4, speech clear, no focal neuro deficits noted HEENMT: normocephalic, atraumatic, EOMI, sclerae anicteric Respiratory: Auscultation limited due to body habitus, diminished breath sounds, no wheezing, nonlabored breathing, able to speak in complete sentences Cardio: regular rate, regular rhythm with S1-S2 Abdomen: Ob
[2021-11-08] MEDS: ACETAMINOPHEN/BUTALBITAL/CAFFEINE 325-50-40 MG TABLET (FIORICET) 1 TAB PO (22:17)
[2021-11-09] VITALS (10 sets, daily range): BP systolic 105–118; BP diastolic 49–58; PULSE 69–87; RESP 16–20; TEMP 36.3–36.6; O2SAT 95–100
[2021-11-09 05:40] LABS: Hematocrit 33.1 % (37.0-47.0); Hemoglobin 9.9 g/dL (12.0-15.0); Mean Corpuscular HGB Conc 29.9 g/dl (32-36); Mean Corpuscular Hemoglobin 26.1 pg (26-34); Mean Corpuscular Volume 87.1 fl (80-100); Mean Platelet Volume 9.5 fl (7.4-10.4); Platelet Count Result 413 k/mm3 (150-375); Red Cell Distribution Width 16.5 % (11.5-14.5); White Blood Count 5.2 K/mm3 (4.5-10.0)
[2021-11-09 05:50] LABS: Anion Gap 6 mmol/L (8-16); Blood Urea Nitrogen 9 mg/dL (7-17); Calcium 8.3 mg/dL (8.4-10.2); Carbon Dioxide 28 mmol/L (22-30); Chloride 104 mmol/L (98-107); Estimated CRCL calculation 135 ml/min; Estimated Glomerular Filt Rate > 60; Glucose 108 mg/dL (65-110); Potassium 3.9 mmol/L (3.4-5.0); Sodium 138 mmol/L (137-145)
[2021-11-09] MEDS: ALBUTEROL SULFATE NEB 2.5 MG/3 ML INH INHALATION ×3 (08:12→20:43)
[2021-11-09] MEDS: PANTOPRAZOLE 40 MG TABLET PO ×2 (08:59→17:38)
[2021-11-09] MEDS: guaiFENesin 12 HR 600 MG TABCR PO ×2 (09:00→20:30)
[2021-11-09] MEDS: LORATADINE 10 MG TABLET PO (09:00)
[2021-11-09] MEDS: ACETAMINOPHEN 325 MG TABLET 650 MG PO ×2 (09:13→22:56)
--- NOTE | 2021-11-09 11:22 | PM.PNPUL ---
Progress Note: A&P Assessment and Plan (1) Lung abscess: Code(s): J85.2 - Abscess of lung without pneumonia Status: Acute Assessment and Plan: 11/07 patient with morbid obesity, asthma, COVID pneumonia, and by history a lung abscess with purulent sputum noted on 10/21/2021 and admitted to [facility] and prescribed clindamycin for 21 days. Of note the patient has a penicillin allergy. The patient was scheduled to follow up with Pulmonary on 11/16/2021. The patient was also told she has MRSA but does not know if this was in her sputum or blood or how this was diagnosed. We are waiting to receive medical records and imaging from [facility]. Currently the patient returns on 11/03/2021 with worsening shortness of breath and wheezes. She had a leukocytosis left lower lobe thick-walled cavity with an air-fluid level consistent with a lung abscess and has been treated with vancomycin and imipenem. clinically she has responded as she feels better, her leukocytosis has resolved and she is afebrile. Blood cultures have been negative. I ordered a sputum culture today. The current CT scan on 11/03/21 was obtained after 13 days of antibiotics including an inpatient regimen and an outpatient regimen of clindamycin which the patient tells me she has been taking. Given her recurrent symptoms, leukocytosis, and presence of a large LLL abscess with air fluid level on our CT scan from 11/03/2021, I am concerned that the patient has a lung abscess that has failed previous antibiotics. Comparison to CT scan from [facility] is needed. Continue vancomycin and imipenem at this time while she is awaiting transfer to [facility] (waiting for a bed since 11/03) for consultation with Infectious Disease and thoracic surgery neither which are available at our hospital (patient refuses [facility] and [facility] is not accepting any patients currently). Currently the patient does appear to be improving with vancomycin and imipenem and my plan would be to repeat a CT of the chest after 1 week (on 11/10/2021) of vancomycin and imipenem to reassess for improvement in abscess. 11/08 Patient continues to slowly improve. The cough is resolved. She has no putrid phlegm. She reports a bloody bowel movement. she is afebrile. 2 L nasal cannula saturations 97%. White blood cell count 4.7. Blood cultures negative. Overall she says that she is 50% back to her baseline and this is the best that she is felt since this started on 10/18/2021. Waiting for transfer to [facility]. Waiting for medical records from [facility]. I have told the patient that she should have her family have [facility] Burn a disc with her imaging and bring this disc to us so that we can review her previous chest x-rays and CT scan. 11/09 Continues to improve. Still complains of left back inside pleuritic chest pain. No P treated phlegm. White blood cell count is 5.2. Afebrile. Room air saturations 96%. Chest x-ray with slight improvement in the left lower lobe cavitary pneumonia. Clinically she has improved, her leukocytosis has resolved and her chest x-ray has improved on vancomycin and imipenem. Will check a CT scan of the chest tomorrow to assess abscess after 1 week of these antibiotics. Discussed with Sandrine Dimas Will follow with you. (2) Asthma: Onset Date: Unknown Code(s): J45.909 - Unspecified asthma, uncomplicated Status: Acute Assessment and Plan: Patient carries a history of asthma controlled on Ventolin and p.r.n. Dulera which she was taking about every other day per her report. Currently the patient is having no active wheezing Although she does describe some chest tightness. Given that she has an active infection at this time number I will place her on scheduled albuterol 2.5 mg q.4 hours while awake. If she has any evidence of worsening asthma I will initiate inhaled corticosteroids. 11/08:
--- NOTE | 2021-11-09 15:25 | P.PNIM_ITS ---
Progress Note: A&P Assessment and Plan (1) Lung abscess: Code(s): J85.2 - Abscess of lung without pneumonia Status: Acute Assessment and Plan: Patient presented with increased shortness of breath. Initial imaging suspicious for cavitary pneumonia of the left lower lobe * Follow-up chest CT showed large left lower lobe cavitary lesion likely representing necrotizing pneumonia * [facility] Awaiting bed availability * Repeat CXR 11/05/2021 showed stable cavitary pneumonia of the left lung * Appreciate pulmonology consultation * Continue Primaxin and vancomycin * Blood cultures are negative * Sputum culture has been ordered, however patient reports nonproductive cough * Patient recently admitted to [place], reportedly treated for MRSA. Records requested for review * Supportive care. Incentive spirometry and Cornet valve. Expectorants as needed * Per pulmonology recommendations, plan to repeat chest CT on 11/10/2021, 1 week following initiation of vancomycin and Primaxin * She is on 2 L supplemental O2. Wean oxygen as tolerated with goal saturation 92% or above * Repeat chest x-ray today shows slight improvement and left lower lobe cavitary pneumonia * Planning for repeat CT scan tomorrow (2) Asthma: Onset Date: Unknown Code(s): J45.909 - Unspecified asthma, uncomplicated Status: Acute Assessment and Plan: Patient with poorly controlled asthma * Albuterol nebs q4h while awake * Hold home Dulera due to acute respiratory infection (3) Hypertension: Code(s): I10 - Essential (primary) hypertension Status: Acute Assessment and Plan: Blood pressure reviewed and has been typically running low. Last BP 118/58 * Patient reports she was taken off of her antihypertensives at her last hospitalization * Hold losartan and diltiazem * Monitor BP trends (4) NELSON (obstructive sleep apnea): Code(s): G47.33 - Obstructive sleep apnea (adult) (pediatric) Status: Acute Assessment and Plan: Patient with untreated sleep apnea. States she cannot tolerate CPAP (5) Bright red rectal bleeding: Code(s): K62.5 - Hemorrhage of anus and rectum Status: Acute Assessment and Plan: Patient reports 3 episodes of bloody stools. * She did produce a photo to share with me that revealed bright red blood in the toilet bowl with brown stool * Most likely related to hemorrhoid * Monitor H&H. Remaining stable. Hemoglobin 9.9 today * Patient is asymptomatic * Continue Protonix 40 mg b.i.d. * Consider GI evaluation if persistent. At this time, outpatient follow-up is appropriate and she will be referred to GI on discharge/transfer Subjective Date/time seen: 11/09/21 15:25 Interval history: Date of service: 11/09/2021 Octavia Smith is a 41-year-old female with a history of anxiety, hypertension, asthma, untreated obstructive sleep apnea, and IBS?who is seen in follow-up for lung abscess. Patient states she is tired today. Feels her shortness of breath is improved. She is coughing occasionally. Denies sputum production. Denies fevers or chills. Reports a good appetite. Denies headache. She has no additional concerns. She reiterates that she is tired and wants to take a nap. She states that she is due in court on 11/15/2021 but unsure she will be able to attend this date due to possible hospitalization. Requested a letter stating that she will be hospitalized and cannot attend. Informed her that I cannot predate a hospital note but
--- NOTE | 2021-11-09 15:25 | PM.IMPN ---
Progress Note: A&P Assessment and Plan (1) Lung abscess: Code(s): J85.2 - Abscess of lung without pneumonia Status: Acute Assessment and Plan: Patient presented with increased shortness of breath. Initial imaging suspicious for cavitary pneumonia of the left lower lobe Follow-up chest CT showed large left lower lobe cavitary lesion likely representing necrotizing pneumonia [facility] Awaiting bed availability Repeat CXR 11/05/2021 showed stable cavitary pneumonia of the left lung Appreciate pulmonology consultation Continue Primaxin and vancomycin Blood cultures are negative Sputum culture has been ordered, however patient reports nonproductive cough Patient recently admitted to [place], reportedly treated for MRSA. Records requested for review Supportive care. Incentive spirometry and Cornet valve. Expectorants as needed Per pulmonology recommendations, plan to repeat chest CT on 11/10/2021, 1 week following initiation of vancomycin and Primaxin She is on 2 L supplemental O2. Wean oxygen as tolerated with goal saturation 92% or above Repeat chest x-ray today shows slight improvement and left lower lobe cavitary pneumonia Planning for repeat CT scan tomorrow (2) Asthma: Onset Date: Unknown Code(s): J45.909 - Unspecified asthma, uncomplicated Status: Acute Assessment and Plan: Patient with poorly controlled asthma Albuterol nebs q4h while awake Hold home Dulera due to acute respiratory infection (3) Hypertension: Code(s): I10 - Essential (primary) hypertension Status: Acute Assessment and Plan: Blood pressure reviewed and has been typically running low. Last BP 118/58 Patient reports she was taken off of her antihypertensives at her last hospitalization Hold losartan and diltiazem Monitor BP trends (4) NELSON (obstructive sleep apnea): Code(s): G47.33 - Obstructive sleep apnea (adult) (pediatric) Status: Acute Assessment and Plan: Patient with untreated sleep apnea. States she cannot tolerate CPAP (5) Bright red rectal bleeding: Code(s): K62.5 - Hemorrhage of anus and rectum Status: Acute Assessment and Plan: Patient reports 3 episodes of bloody stools. She did produce a photo to share with me that revealed bright red blood in the toilet bowl with brown stool Most likely related to hemorrhoid Monitor H&H. Remaining stable. Hemoglobin 9.9 today Patient is asymptomatic Continue Protonix 40 mg b.i.d. Consider GI evaluation if persistent. At this time, outpatient follow-up is appropriate and she will be referred to GI on discharge/transfer Subjective Date/time seen: 11/09/21 15:25 Interval history: Date of service: 11/09/2021 Octavia Smith is a 41-year-old female with a history of anxiety, hypertension, asthma, untreated obstructive sleep apnea, and IBS?who is seen in follow-up for lung abscess. Patient states she is tired today. Feels her shortness of breath is improved. She is coughing occasionally. Denies sputum production. Denies fevers or chills. Reports a good appetite. Denies headache. She has no additional concerns. She reiterates that she is tired and wants to take a nap. She states that she is due in court on 11/15/2021 but unsure she will be able to attend this date due to possible hospitalization. Requested a letter stating that she will be hospitalized and cannot attend. Informed her that I cannot predate a hospital note but we can supply a note that states that she is currently in the hospital. She was agreeable to this. Review of Systems Review of Systems: All systems reviewed & are unremarkable except as noted in HPI and below Exam Narrative: General: Obese, will appearing, 41-year-old female, lying supine in bed, comfortable, NARD Neuro: awake, alert and oriented x4, speech clear, no focal neuro deficits noted
[2021-11-10] MEDS: ACETAMINOPHEN/BUTALBITAL/CAFFEINE 325-50-40 MG TABLET (FIORICET) 1 TAB PO (01:42)
[2021-11-10 05:26] VITALS: BP 129/57; PULSE 66; RESP 18; TEMP 36.7; O2SAT 100
--- NOTE | 2021-11-10 07:48 | P.TS_ITS ---
Transfer Discharge Sum: Prov Provider Date of admission: 11/04/21 16:32 Primary care physician: Dulce Carpio, MD Admitting clinician: Sage Loera MD Consults: 11/07/21 08:27 Consult to Physician Routine Comment: Consulting Provider: Paul Delaney Reason for consultation: lung abscess Has provider been notified: Yes DS: Admitting Diagnosis Discharge Date 11/10/21 Admitting Diagnosis Lung abscess DS: Discharge Diagnosis Discharge Diagnosis (1) Lung abscess: Code(s): J85.2 - Abscess of lung without pneumonia Status: Acute Assessment and Plan: Patient presented with increased shortness of breath. Initial imaging suspicious for cavitary pneumonia of the left lower lobe * Follow-up chest CT showed large left lower lobe cavitary lesion likely representing necrotizing pneumonia * Patient accepted for transfer to [facility] on 11/03/2021 pending bed availability * Repeat CXR 11/05/2021 showed stable cavitary pneumonia of the left lung * She was seen in consultation by pulmonology * Had clinical improvement with Primaxin and vancomycin * Blood cultures negative * Sputum culture ordered, unable to be obtained as productive cough resolved * Patient recently admitted to [place], reportedly treated for MRSA and suspected lung abscess. Records requested for review but not received prior to transfer * Repeat chest x-ray 11/09/2021 showed slight improvement and left lower lobe cavitary pneumonia * 11/10/21 bed availability at [facility]. Patient transferred. Accepting physician Dr. Mcqueen. (2) Asthma: Onset Date: Unknown Code(s): J45.909 - Unspecified asthma, uncomplicated Status: Acute Assessment and Plan: Patient with poorly controlled asthma * Received albuterol nebs * Home Dulera held due to acute respiratory infection (3) Hypertension: Code(s): I10 - Essential (primary) hypertension Status: Acute Assessment and Plan: Blood pressure reviewed and had been running in the low-normal range * Patient reports she was taken off of her antihypertensives at her last hospitalization * Hold losartan and diltiazem * Monitor BP trends (4) NELSON (obstructive sleep apnea): Code(s): G47.33 - Obstructive sleep apnea (adult) (pediatric) Status: Acute Assessment and Plan: Patient with untreated sleep apnea. States she cannot tolerate CPAP (5) Bright red rectal bleeding: Code(s): K62.5 - Hemorrhage of anus and rectum Status: Acute Assessment and Plan: Patient reports 3 episodes of bloody stools. * She did produce a photo that revealed bright red blood streaked in the toilet bowl with brown stool * Most likely related to hemorrhoid * H&H remained stable. * Patient is asymptomatic * Continue Protonix 40 mg b.i.d. * Consider GI evaluation if persistent. At this time, outpatient follow-up is appropriate and she will need referral to GI at time of hospital discharge Transfer Discharge Sum: Med Medications Active and Home Medications: Home Medications albuterol sulfate 2.5 mg/3 mL (0.083 %) solution for nebulization 3 ml Q4H PRN Shortness Of Breath 11/03/21 [History Confirmed 11/07/21] cetirizine 10 mg tablet 10 tablet PO DAILY 11/03/21 [History Confirmed 11/07/21] clindamycin HCl 150 mg capsule 150 cap PO QID 11/03/21 [History Confirmed 11/07/21] diltiazem HCl 120 mg capsule,ext
--- NOTE | 2021-11-10 07:48 | PM.TDS ---
Transfer Discharge Sum: Prov Provider Date of admission: 11/04/21 16:32 Primary care physician: Dulce Carpio, MD Admitting clinician: Sage Loera MD Consults: 11/07/21 08:27 Consult to Physician Routine Comment: Consulting Provider: Paul Delaney Reason for consultation: lung abscess Has provider been notified: Yes DS: Admitting Diagnosis Discharge Date 11/10/21 Admitting Diagnosis Lung abscess DS: Discharge Diagnosis Discharge Diagnosis (1) Lung abscess: Code(s): J85.2 - Abscess of lung without pneumonia Status: Acute Assessment and Plan: Patient presented with increased shortness of breath. Initial imaging suspicious for cavitary pneumonia of the left lower lobe Follow-up chest CT showed large left lower lobe cavitary lesion likely representing necrotizing pneumonia Patient accepted for transfer to [facility] on 11/03/2021 pending bed availability Repeat CXR 11/05/2021 showed stable cavitary pneumonia of the left lung She was seen in consultation by pulmonology Had clinical improvement with Primaxin and vancomycin Blood cultures negative Sputum culture ordered, unable to be obtained as productive cough resolved Patient recently admitted to [place], reportedly treated for MRSA and suspected lung abscess. Records requested for review but not received prior to transfer Repeat chest x-ray 11/09/2021 showed slight improvement and left lower lobe cavitary pneumonia 11/10/21 bed availability at [facility]. Patient transferred. Accepting physician Dr. Mcqueen. (2) Asthma: Onset Date: Unknown Code(s): J45.909 - Unspecified asthma, uncomplicated Status: Acute Assessment and Plan: Patient with poorly controlled asthma Received albuterol nebs Home Dulera held due to acute respiratory infection (3) Hypertension: Code(s): I10 - Essential (primary) hypertension Status: Acute Assessment and Plan: Blood pressure reviewed and had been running in the low-normal range Patient reports she was taken off of her antihypertensives at her last hospitalization Hold losartan and diltiazem Monitor BP trends (4) NELSON (obstructive sleep apnea): Code(s): G47.33 - Obstructive sleep apnea (adult) (pediatric) Status: Acute Assessment and Plan: Patient with untreated sleep apnea. States she cannot tolerate CPAP (5) Bright red rectal bleeding: Code(s): K62.5 - Hemorrhage of anus and rectum Status: Acute Assessment and Plan: Patient reports 3 episodes of bloody stools. She did produce a photo that revealed bright red blood streaked in the toilet bowl with brown stool Most likely related to hemorrhoid H&H remained stable. Patient is asymptomatic Continue Protonix 40 mg b.i.d. Consider GI evaluation if persistent. At this time, outpatient follow-up is appropriate and she will need referral to GI at time of hospital discharge Transfer Discharge Sum: Med Medications Active and Home Medications: Home Medications albuterol sulfate 2.5 mg/3 mL (0.083 %) solution for nebulization 3 ml Q4H PRN Shortness Of Breath 11/03/21 [History Confirmed 11/07/21] cetirizine 10 mg tablet 10 tablet PO DAILY 11/03/21 [History Confirmed 11/07/21] clindamycin HCl 150 mg capsule 150 cap PO QID 11/03/21 [History Confirmed 11/07/21] diltiazem HCl 120 mg capsule,extended release 24 hr (Cardizem CD) 120 cap PO HS 11/03/21 [History Confirmed 11/07/21] mometasone-formoterol HFA 200 mcg-5 mcg/actuation aerosol inhaler (Dulera) 200 inh inhalation BID 11/03/21 [History Confirmed 11/07/21] iodazeqdkg-yaguatzqlybuu-ewdjdbav 50 mg-325 mg-40 mg tablet 1 tablet PO Q4-6H PRN Migraine Headache 11/07/21 [History Confirmed 11/07/21] hydroxyzine HCl 25 mg tablet 25 mg PO HS PRN sleep 11/07/21 [History Confirmed 11/07/21] losartan 50 mg tablet 50 tablet PO DAILY 11/07/21 [History Confirmed 11/07/21] pantoprazole 40 mg tablet,delayed release
== END 2021-11-10 06:40 | disposition short-term general hospital (02) | DRG 137 ==
LOC: ANHED 11-07 08:30 → ANH2MED 11-07 10:50 → ANH3MED 11-07 13:48 → ANH2MED 11-12 12:46
PROVIDERS: Emergency Medicine; Physician Assistant; Admitting Provider Family Medicine; Emergency Provider Emergency Medicine; PCP Internal Medicine Cardiovascular Disease; Visit Provider Physician Assistant
DX: J85.0 Gangrene and necrosis of lung (principal); J85.1 Abscess of lung with pneumonia; J45.909 Unspecified asthma, uncomplicated; I10 Essential (primary) hypertension; E78.00 Pure hypercholesterolemia, unspecified; F41.9 Anxiety disorder, unspecified; E66.01 Morbid (severe) obesity due to excess calories; F32.A Depression, unspecified; G62.9 Polyneuropathy, unspecified; G47.33 Obstructive sleep apnea (adult) (pediatric); K64.9 Unspecified hemorrhoids; K58.9 Irritable bowel syndrome, unspecified; Z90.49 Acquired absence of other specified parts of digestive tract; Z87.81 Personal history of (healed) traumatic fracture; Z88.0 Allergy status to penicillin; Z86.14 Personal history of Methicillin resistant Staphylococcus aureus infection; Z68.43 Body mass index [BMI] 50.0-59.9, adult; Z86.16 Personal history of COVID-19; Z87.891 Personal history of nicotine dependence
CPT/HCPCS: 36415; 71046; 71260; 80048; 80053; 80202; 81001; 82565; 82948; 83605; 83880; 84484; 85025; 85027; 87040; 87086; 87088; 93005; 94640; 94667; 96365; 96366; 96367; 96376; 99285; A9270; J0131; J0743; J2405; J3370; Q9967

== ENCOUNTER 2022-03-02 00:23 | Emergency (ER) | payer OTHER, SELFPAY ==
[2022-03-02] VITALS (22 sets, daily range): BP systolic 118–143; BP diastolic 50–81; PULSE 76–96; RESP 13–28; TEMP 36.1; O2SAT 96–98
--- NOTE | ~2022-03-02 | CT_ITS ---
EXAMINATION: CTA chest PE protocol DATE: 03/02/2022 04:43 INDICATION: Pleuritic chest pain. TECHNIQUE: Computed tomography angiography (CTA) of the chest was performed with 100 mL Omnipaque-350 intravenous contrast timed to evaluate the pulmonary arteries. Coronal maximum intensity projection 3D-reconstructions were created by the technologist. Automated exposure control and iterative reconst ruction technique were employed. The dose-length product was 939.87 mGy-cm. COMPARISON: Chest CT 11/03/2021 FINDINGS: There is mild atelectasis in left lower lobe and right middle lobe. No pleural effusion. Th e heart size is normal. No pericardial effusion. There is no pulmonary embolus. Calcified left hilar and mediastinal lymph nodes are consistent with old granulomatous disease. Splenomegaly is noted. Breezy cifications in the liver and spleen are consistent with old granulomatous disease. There is a small s liding hiatal hernia. There is mild chronic anterior wedging of multiple vertebral bodies. There is m ild thoracic spondylosis. IMPRESSION: 1. No pulmonary embolus. 2. Splenomegaly. 3. Small sliding hiatal hernia. Reviewed, dictated and finalized at location A.
--- NOTE | ~2022-03-02 | XR_ITS ---
EXAMINATION: XR chest 2V DATE: 03/02/2022 01:38 INDICATION: Chest pain. TECHNIQUE: Frontal and lateral views of the chest were obtained. COMPARISON: Chest 2 views 11/09/2021, chest CT 03/02/2022 FINDINGS: There is mild atelectasis in left lower lobe. No pleural effusion or pneumothorax. The hear t size is normal. Calcified left hilar and mediastinal lymph nodes are consistent with old granulomat ous disease. IMPRESSION: 1. Mild atelectasis in left lower lobe. Reviewed, dictated and finalized at location A.
--- NOTE | 2022-03-02 00:44 | ECG_ITS ---
Measurements Intervals [place] Rate: 76 P: 32 CO: 140 QRS: 16 QRSD: 76 T: 34 QT: 376 QTc: 424 Interpretive Statements SINUS RHYTHM WITH SINUS ARRHYTHMIA LOW QRS VOLTAGE IN PRECORDIAL LEADS BORDERLINE ECG COMPARED TO ECG 11/06/2021 21:29:24 NO SIGNIFICANT CHANGES Electronically Signed On 03-02-2022 15:18:20 CDT by Rhett Caceres M.D.
[2022-03-02 03:06] LABS: Basophils Percent Auto 0.5 % (0.2-1.2); Eosinophils Absolute Auto 0.5 K/mm3 (0-0.3); Eosinophils Percent Auto 6.4 % (0-4.4); Hematocrit 38.8 % (37.0-47.0); Hemoglobin 12.3 g/dL (12.0-15.0); Immature Granulocyte Absolute 0.03 K/mm3 (0.00-0.031); Immature Granulocyte Percent A 0.4 % (0-0.5); Lymphocytes Percent Auto 24.9 % (18.3-44.2); Mean Corpuscular HGB Conc 31.7 g/dl (32-36); Mean Corpuscular Volume 85.3 fl (80-100); Mean Platelet Volume 9.9 fl (7.4-10.4); Monocytes Absolute Auto 0.5 K/mm3 (0.1-0.6); Monocytes Percent Auto 6.2 % (2.6-8.5); Neutrophils Absolute Auto 5.2 K/mm3 (1.3-6.7); Neutrophils Percent Auto 61.6 % (45.5-73.1); Platelet Count Result 323 k/mm3 (150-375); Red Blood Count 4.55 M/mm3 (4.2-5.4); Red Cell Distribution Width 16.2 % (11.5-14.5); White Blood Count 8.4 K/mm3 (4.5-10.0)
--- NOTE | 2022-03-02 03:13 | ED.CHESTPAIN ---
HPI - Chest Pain General Chief Complaint: Chest Pain Stated Complaint: chest pain, anxiety Time Seen by Provider: 03/02/22 03:04 History of Present Illness HPI narrative: Patient is a 41-year-old female with a history of hypertension, asthma presenting with chest pain. Patient states that she has been under a lot of stress lately and was recently traveling. States that she developed left-sided chest pain that went into her shoulder earlier today so she was concerned there was something wrong with her heart. She states that her asthma has also been acting up. She denies headache, fevers, lightheadedness, abdominal pain, nausea or vomiting, diarrhea, dysuria. States that her legs are always swollen but they are not worse than normal. Related Data Home Medications Medication Instructions Recorded Confirmed albuterol sulfate 2.5 mg/3 mL 3 ml Q4H PRN Shortness Of Breath 11/03/21 01/14/22 (0.083 %) solution for nebulization cetirizine 10 mg tablet 10 tablet PO DAILY 11/03/21 01/14/22 mometasone-formoterol HFA 200 200 inh inhalation BID 11/03/21 01/14/22 mcg-5 mcg/actuation aerosol inhaler (Dulera) kirnqpehru-hcdcnmssyhqgh-tyomkbqf 1 tablet PO Q4-6H PRN Migraine 11/07/21 01/14/22 50 mg-325 mg-40 mg tablet Headache hydroxyzine HCl 25 mg tablet 25 mg PO HS PRN sleep 11/07/21 01/14/22 pantoprazole 40 mg tablet,delayed 40 mg PO BID 11/07/21 01/14/22 release Allergies Allergy/AdvReac Type Severity Reaction Status Date / Time artichoke Allergy Severe HIVES Verified 03/02/22 00:28 morphine Allergy Severe BURNING AT Verified 03/02/22 00:28 THE SITE NSAIDS (Non-Steroidal Allergy Severe ASTHMA/HIVE Verified 03/02/22 00:28 Anti-Inflamma S peanut Allergy Severe HIVES Verified 03/02/22 00:28 pineapple Allergy Severe Swelling Verified 03/02/22 00:28 of Lip/Tongue/Throat Sulfa (Sulfonamide Allergy Severe ASTHMA/HIVE Verified 03/02/22 00:28 Antibiotics) S tramadol Allergy Severe HIVES Verified 03/02/22 00:28 latex Allergy Intermediate Rash Verified 03/02/22 00:28 pomegranate Allergy Intermediate HIVES Verified 03/02/22 00:28 aspirin Allergy Mild Dyspnea / Verified 03/02/22 00:28 SOB blue dye Allergy Mild Unknown Verified 03/02/22 00:28 codeine Allergy Mild Dyspnea / Verified 03/02/22 00:28 SOB ibuprofen Allergy Mild Unknown Verified 03/02/22 00:28 peanut oil Allergy Mild Unknown Verified 03/02/22 00:28 Penicillins Allergy Mild Unknown Verified 03/02/22 00:28 strawberry Allergy Mild Swelling Verified 03/02/22 00:28 of Lip/Tongue/Throat fabian Allergy Severe Rash Uncoded 03/02/22 00:28 LAO SAUSAGE Allergy Severe DIARRHEA/HI Uncoded 03/02/22 00:28 VES TILAPIA Allergy Severe SWOLLEN Uncoded 03/02/22 00:28 GLANDS Cueto Armendariz Allergy Intermediate SORE THROAT Uncoded 03/02/22 00:28 BLUEBERRIES Allergy Mild Unknown Uncoded 03/02/22 00:28 Review of Systems Review of Systems: All systems reviewed & are unremarkable except as noted in HPI and below PMFSH Past Medical History Medical History Anxiety Asthma (Unknown) Carpal tunnel syndrome Depression History of esophageal dilatation Hypercholesterolemia Hypertension IBS (irritable bowel syndrome) Morbid obesity Neuropathy involving both lower extremities Nexplanon insertion insertion - 01/17/2020 NELSON (obstructive sleep apnea) Surgical History Surgical History History of section History of cholecystectomy Family History Family History Mother Hypertension Father Hypertension Asthma Social History Social History Social History: Ms. Smith lives in a rental with her son and father. 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 Her primary care provider is Dr. Garcia. She designates her mother
[2022-03-02 03:20] LABS: Alanine Aminotransferase 27 U/L (6-35); Albumin Level 4.6 g/dL (3.5-5.1); Alkaline Phosphatase 84 U/L (38-126); Anion Gap 9 mmol/L (8-16); Aspartate Amino Transferase 36 U/L (14-36); Bilirubin,Total 0.4 mg/dL (0.2-1.3); Blood Urea Nitrogen 12 mg/dL (7-17); Calcium 9.5 mg/dL (8.4-10.2); Carbon Dioxide 27 mmol/L (22-30); Chloride 104 mmol/L (98-107); Estimated CRCL calculation 119 ml/min; Estimated Glomerular Filt Rate > 60; Glucose 105 mg/dL (65-110); Lipase 52 U/L (23-300); Sodium 140 mmol/L (137-145)
[2022-03-02 03:45] LABS: Troponin I < 0.012 ng/mL (0.000-0.034)
[2022-03-02 04:07] LABS: Troponin I < 0.012 ng/mL (0.000-0.034)
[2022-03-02 04:10] LABS: INR 1.1; Prothrombin Time 13.6 Seconds (11.1-14.7)
[2022-03-02 04:11] LABS: Partial Thromboplastin Time 28.1 SECONDS (22.3-36.8)
[2022-03-02 04:12] LABS: D Dimer 0.63 ug/mL (<0.48)
== END 2022-03-02 06:21 | disposition home or self-care (01) ==
PROVIDERS: Physician Assistant; Emergency Provider Emergency Medicine; PCP Internal Medicine Cardiovascular Disease
DX: R07.89 Other chest pain (principal); I10 Essential (primary) hypertension; J45.909 Unspecified asthma, uncomplicated; E78.00 Pure hypercholesterolemia, unspecified; G47.33 Obstructive sleep apnea (adult) (pediatric); F41.9 Anxiety disorder, unspecified; F32.A Depression, unspecified; K58.9 Irritable bowel syndrome, unspecified; G62.9 Polyneuropathy, unspecified; E66.01 Morbid (severe) obesity due to excess calories; Z68.43 Body mass index [BMI] 50.0-59.9, adult; Z79.51 Long term (current) use of inhaled steroids; Z87.891 Personal history of nicotine dependence
CPT/HCPCS: 36415; 71046; 71275; 80053; 83690; 84484; 85025; 85380; 85610; 85730; 93005; 96365; 99284; J0131; Q9967

== ENCOUNTER 2022-04-10 21:30 | Emergency (ER) | payer OTHER, SELFPAY ==
--- NOTE | ~2022-04-10 | XR_ITS ---
XR chest 2V DATE: 04/11/2022 00:54 INDICATION: Shortness of breath. History of asthma. TECHNIQUE: PA and lateral views COMPARISON: 03/03/2022 CT pulmonary scan 03/02/2022 PA and lateral chest FINDINGS: Normal heart size. No hilar or mediastinal enlargement. The lungs are clear of infiltrate o r consolidation. No pleural effusion or pulmonary vascular congestion or pneumothorax is detected. Mild thoracic dextroscoliosis. IMPRESSION: No active cardiopulmonary disease Reviewed, dictated and finalized at location A. 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
[2022-04-10 21:56] VITALS: BP 129/68; PULSE 90; RESP 18; TEMP 37.1; O2SAT 98
[2022-04-10 22:48] LABS: Influenza A QL RT-PCR Negative (Negative); Influenza B QL RT-PCR Negative (Negative); SARS-CoV-2 RNA PCR Negative
[2022-04-10] MEDS: ALBUTEROL SULFATE NEB 2.5 MG/3 ML INH 15 MG INHALATION (23:40)
[2022-04-10] MEDS: IPRATROPIUM BR 0.02% INH SOLN 0.5 MG/2.5 ML VIAL 1.5 MG INHALATION (23:41)
[2022-04-10 23:45] VITALS: PULSE 87; RESP 24
[2022-04-11 00:07] VITALS: O2SAT 100
--- NOTE | 2022-04-11 00:29 | ED.URI ---
HPI - URI/Sore Throat General Chief Complaint: Upper Respiratory Infection Stated Complaint: back pain Time Seen by Provider: 04/10/22 22:27 Source: patient Mode of arrival: ambulatory Limitations: no limitations History of Present Illness HPI Narrative: Patient is a 41-year-old female, with past medical history of asthma, who presents the ED with report of upper respiratory symptoms. Patient reports having cough, congestion, rhinorrhea, headaches, muscle aches, nausea for the past 4 to 5 days. She has had some increasing shortness of breath and wheezing. She has been using her inhaler at home with minimal relief. Denies fever, vomiting, diarrhea, constipation, abdominal pain, urinary symptoms. She tried taking Tylenol yesterday, but has not taken anything further for sx's. Related Data Home Medications Medication Instructions Recorded Confirmed albuterol sulfate 2.5 mg/3 mL 3 ml Q4H PRN Shortness Of Breath 11/03/21 01/14/22 (0.083 %) solution for nebulization cetirizine 10 mg tablet 10 tablet PO DAILY 11/03/21 01/14/22 mometasone-formoterol HFA 200 200 inh inhalation BID 11/03/21 01/14/22 mcg-5 mcg/actuation aerosol inhaler (Dulera) iuohayzdfr-rypzerfwjyrlq-gjihopfh 1 tablet PO Q4-6H PRN Migraine 11/07/21 01/14/22 50 mg-325 mg-40 mg tablet Headache hydroxyzine HCl 25 mg tablet 25 mg PO HS PRN sleep 11/07/21 01/14/22 pantoprazole 40 mg tablet,delayed 40 mg PO BID 11/07/21 01/14/22 release Allergies Allergy/AdvReac Type Severity Reaction Status Date / Time artichoke Allergy Severe HIVES Verified 04/10/22 22:01 morphine Allergy Severe BURNING AT Verified 04/10/22 22:01 THE SITE NSAIDS (Non-Steroidal Allergy Severe ASTHMA/HIVE Verified 04/10/22 22:01 Anti-Inflamma S peanut Allergy Severe HIVES Verified 04/10/22 22:01 pineapple Allergy Severe Swelling Verified 04/10/22 22:01 of Lip/Tongue/Throat Sulfa (Sulfonamide Allergy Severe ASTHMA/HIVE Verified 04/10/22 22:01 Antibiotics) S tramadol Allergy Severe HIVES Verified 04/10/22 22:01 latex Allergy Intermediate Rash Verified 04/10/22 22:01 pomegranate Allergy Intermediate HIVES Verified 04/10/22 22:01 aspirin Allergy Mild Dyspnea / Verified 04/10/22 22:01 SOB blue dye Allergy Mild Unknown Verified 04/10/22 22:01 codeine Allergy Mild Dyspnea / Verified 04/10/22 22:01 SOB ibuprofen Allergy Mild Unknown Verified 04/10/22 22:01 peanut oil Allergy Mild Unknown Verified 04/10/22 22:01 Penicillins Allergy Mild Unknown Verified 04/10/22 22:01 strawberry Allergy Mild Swelling Verified 04/10/22 22:01 of Lip/Tongue/Throat beclomethasone [From Qvar] Allergy Unknown Verified 04/10/22 22:01 budesonide [From Symbicort] Allergy Unknown Verified 04/10/22 22:01 formoterol [From Symbicort] Allergy Unknown Verified 04/10/22 22:01 fabian Allergy Severe Rash Uncoded 04/10/22 22:01 CYMRO SAUSAGE Allergy Severe DIARRHEA/HI Uncoded 04/10/22 22:01 VES TILAPIA Allergy Severe SWOLLEN Uncoded 04/10/22 22:01 GLANDS Cueto Armendariz Allergy Intermediate SORE THROAT Uncoded 04/10/22 22:01 BLUEBERRIES Allergy Mild Unknown Uncoded 04/10/22 22:01 Review of Systems Review of Systems: CONSTITUTIONAL: Denies fever, chills, or sweats. ENT: Reports rhinorrhea, congestion. CARDIOVASCULAR: Denies chest pain. RESPIRATORY: Reports cough, wheezing, dyspnea. GASTROINTESTINAL: Reports nausea. Denies abdominal pain, constipation, vomiting, or diarrhea. GENITOURINARY: Denies dysuria or hematuria. MUSCULOSKELETAL: Reports myalgias. NEUROLOGIC: Reports BURKS. Denies numbness or weakness. All systems reviewed & are unremarkable except as noted in HPI and below PMFSH Past Medical History Medical History Anxiety Asthma (Unknown) Carpal tunnel syndrome Depression History of esophageal dilatation Hypercholesterolemia Hypertension IBS (irritable bowel syndrome) Morbid obesity Neuropathy involving both lowe
[2022-04-11 00:47] VITALS: PULSE 84; RESP 20
--- NOTE | 2022-04-11 01:00 | ECG_ITS ---
Measurements Intervals [place] Rate: 84 P: 26 [place]: 133 QRS: 19 QRSD: 76 T: 34 QT: 353 QTc: 420 Interpretive Statements SINUS RHYTHM BASELINE WANDER- II, III, AVR, AVL, AVF, V1-V3 NORMAL ECG COMPARED TO ECG 03/02/2022 01:31:10 NO SIGNIFICANT CHANGES Electronically Signed On 04-11-2022 14:29:03 [employer] by Lucian Almonte D.O.
[2022-04-11] MEDS: SODIUM CHLORIDE 0.9% IV 1,000 ML 999 ML IV CONT (02:13)
[2022-04-11 02:22] LABS: Basophils Percent Auto 0.7 % (0.2-1.2); Eosinophils Absolute Auto 0.1 K/mm3 (0-0.3); Eosinophils Percent Auto 3.3 % (0-4.4); Hematocrit 33.9 % (37.0-47.0); Hemoglobin 10.6 g/dL (12.0-15.0); Immature Granulocyte Absolute 0.01 K/mm3 (0.00-0.031); Immature Granulocyte Percent A 0.2 % (0-0.5); Lymphocytes Absolute Auto 1.06 K/mm3 (0.9-3.2); Lymphocytes Percent Auto 24.9 % (18.3-44.2); Mean Corpuscular HGB Conc 31.3 g/dl (32-36); Mean Corpuscular Hemoglobin 26.6 pg (26-34); Mean Platelet Volume 9.4 fl (7.4-10.4); Monocytes Absolute Auto 0.5 K/mm3 (0.1-0.6); Monocytes Percent Auto 11.7 % (2.6-8.5); Neutrophils Absolute Auto 2.5 K/mm3 (1.3-6.7); Neutrophils Percent Auto 59.2 % (45.5-73.1); Platelet Count Result 216 k/mm3 (150-375); Red Blood Count 3.99 M/mm3 (4.2-5.4); Red Cell Distribution Width 16.2 % (11.5-14.5); White Blood Count 4.3 K/mm3 (4.5-10.0)
[2022-04-11 02:38] LABS: Alanine Aminotransferase 23 U/L (6-35); Albumin Level 3.9 g/dL (3.5-5.1); Alkaline Phosphatase 79 U/L (38-126); Anion Gap 8 mmol/L (8-16); Aspartate Amino Transferase 26 U/L (14-36); Bilirubin,Total 0.5 mg/dL (0.2-1.3); Blood Urea Nitrogen 7 mg/dL (7-17); Calcium 8.6 mg/dL (8.4-10.2); Carbon Dioxide 26 mmol/L (22-30); Chloride 102 mmol/L (98-107); Estimated CRCL calculation 139 ml/min; Estimated Glomerular Filt Rate > 60; Glucose 99 mg/dL (65-110); Potassium 3.6 mmol/L (3.4-5.0); Sodium 136 mmol/L (137-145)
[2022-04-11 02:50] LABS: Troponin I < 0.012 ng/mL (0.000-0.034)
[2022-04-11] MEDS: ONDANSETRON INJ 4 MG/2 ML VIAL IV PUSH (03:21)
[2022-04-11 03:32] VITALS: BP 130/72; PULSE 84; RESP 18; O2SAT 98
== END 2022-04-11 03:40 | disposition home or self-care (01) ==
PROVIDERS: Emergency Medicine; Emergency Provider Physician Assistant; PCP Internal Medicine Cardiovascular Disease
DX: J06.9 Acute upper respiratory infection, unspecified (principal); J45.901 Unspecified asthma with (acute) exacerbation; Z20.822 Contact with and (suspected) exposure to COVID-19; E78.00 Pure hypercholesterolemia, unspecified; K58.9 Irritable bowel syndrome, unspecified; G47.33 Obstructive sleep apnea (adult) (pediatric); E66.01 Morbid (severe) obesity due to excess calories; Z68.43 Body mass index [BMI] 50.0-59.9, adult; G62.9 Polyneuropathy, unspecified; Z87.891 Personal history of nicotine dependence
CPT/HCPCS: 36415; 71046; 80053; 84484; 85025; 87636; 93005; 94640; 96361; 96365; 96375; 99284; J0131; J2405; J7030

== ENCOUNTER 2022-09-30 15:19 | Inpatient (IN) | payer OTHER, SELFPAY ==
--- NOTE | ~2022-09-30 | XR_ITS ---
EXAMINATION: XR chest 2V DATE: 09/30/2022 19:25 INDICATION: Wheezing TECHNIQUE: PA and lateral views of the chest were obtained. COMPARISON: Chest radiograph dated 04/11/[address] dated 03/02/2022 FINDINGS: Airspace opacities in the left lower lung zone which partially obscures portions the left heart borde r near the apex which could represent atelectasis or pneumonia. No pleural effusion or pneumothorax. Heart size is normal. Chronic mild anterior wedging of a few lower thoracic vertebral bodies with mil d spondylosis. IMPRESSION: 1. Opacities in the left lower lung zone which could represent atelectasis or pneumonia. Reviewed, dictated and finalized at location A. IMPRESSION: 1. Opacities in the left lower lung zone which could represent atelectasis or p neumonia.
--- NOTE | ~2022-09-30 | US_ITS ---
US arterial ankle brachial ind INDICATION: Right leg pain TECHNIQUE: Segmental pressures and plethysmographic and Doppler waveforms of the brachial and lower e xtremity arteries were obtained. COMPARISON: None. FINDINGS: Right and left brachial artery pressures of 120 mm Hg and 110 mm Hg, respectively, are concordant (no rmal difference <= 30 mmHg). The right ankle-brachial index (JAELYN) is 1.07 (normal >= 0.9-1.0). The right great toe-brachial index (TBI) is 0.69 (normal >= 0.60). The left JAELYN is 1.04. The left TBI is 0.78. IMPRESSION: 1. Normal bilateral ankle and toe brachial indices. Reviewed, dictated and finalized at location B.
--- NOTE | ~2022-09-30 | US_ITS ---
EXAMINATION: US venous doppler [facility] DATE: 10/02/2022 16:06 INDICATION: Right lower limb pain and swelling TECHNIQUE: Grayscale ultrasound images without and with compression and Doppler ultrasound images of the bilateral lower extremity veins were obtained. COMPARISON: None. FINDINGS: The visualized portions of right common femoral vein, profunda (deep) femoral vein, femoral vein, pop liteal vein, posterior tibial veins, peroneal veins, gastrocnemius vein and greater saphenous vein ou tflow are patent. The visualized portions of left common femoral vein, profunda femoral vein, femoral vein, popliteal v ein, posterior tibial veins, peroneal veins, gastrocnemius vein and greater saphenous vein outflow ar e patent. IMPRESSION: 1. No deep venous thrombosis in either lower limb. Reviewed, dictated and finalized at location A.
[2022-09-30 15:27] VITALS: BP 127/77; PULSE 132; RESP 20; TEMP 37.7; O2SAT 97
[2022-09-30] MEDS: LEVALBUTEROL NEB 1.25 MG/3 ML 2.5 MG INHALATION (17:36)
[2022-09-30] MEDS: IPRATROPIUM BR 0.02% INH SOLN 0.5 MG/2.5 ML VIAL 1.5 MG INHALATION (17:36)
[2022-09-30 17:40] VITALS: PULSE 132; RESP 20
[2022-09-30 18:21] VITALS: PULSE 125; RESP 20
[2022-09-30 18:34] LABS: Hematocrit 39.2 % (37.0-47.0); Hemoglobin 12.5 g/dL (12.0-15.0); Mean Corpuscular HGB Conc 31.9 g/dl (32-36); Mean Corpuscular Hemoglobin 27.2 pg (26-34); Mean Corpuscular Volume 85.2 fl (80-100); Mean Platelet Volume 9.9 fl (7.4-10.4); Platelet Count Result 233 k/mm3 (150-375); Red Cell Distribution Width 14.9 % (11.5-14.5); White Blood Count 18.4 K/mm3 (4.5-10.0)
[2022-09-30] MEDS: ACETAMINOPHEN 325 MG TABLET 650 MG PO (18:40)
[2022-09-30] MEDS: SODIUM CHLORIDE 0.9% IV 1,000 ML 999 ML IV CONT (18:41)
[2022-09-30 18:45] LABS: INR 1.1; Partial Thromboplastin Time 25.7 SECONDS (22.3-36.8); Prothrombin Time 14.3 Seconds (11.1-14.7)
--- NOTE | 2022-09-30 18:45 | ED.GENADULT ---
HPI - General Adult General Chief complaint: Recheck/Abnormal Lab/Rx Stated complaint: anemia, dyspnea. boday aches Time Seen by Provider: 09/30/22 17:08 History of Present Illness HPI narrative: Patient is a 42-year-old female who presents ER with multiple complaints. First complaint is dyspnea. Has history of asthma and has been worsening over the last week. She reports she is also been having sweats and chills. No documented fevers. She feels like her chills are related to chronic anemia. Denies any dark black stools or bright red stools. Reports her anemia is iron related. Denies chest pain or chest pressure. No nausea or vomiting. Patient also reports recent diagnosis of cellulitis last week. She is prescribed clindamycin but it upset her stomach so she stopped taking it. Related Data Home Medications Medication Instructions Recorded Confirmed albuterol sulfate 2.5 mg/3 mL 3 ml Q4H PRN Shortness Of Breath 11/03/21 01/14/22 (0.083 %) solution for nebulization cetirizine 10 mg tablet 10 tablet PO DAILY 11/03/21 01/14/22 mometasone-formoterol HFA 200 200 inh inhalation BID 11/03/21 01/14/22 mcg-5 mcg/actuation aerosol inhaler (Dulera) [id number] 1 tablet PO Q4-6H PRN Migraine 11/07/21 01/14/22 50 mg-325 mg-40 mg tablet Headache hydroxyzine HCl 25 mg tablet 25 mg PO HS PRN sleep 11/07/21 01/14/22 pantoprazole 40 mg tablet,delayed 40 mg PO BID 11/07/21 01/14/22 release Allergies Allergy/AdvReac Type Severity Reaction Status Date / Time artichoke Allergy Severe HIVES Verified 04/10/22 22:01 morphine Allergy Severe BURNING AT Verified 04/10/22 22:01 THE SITE NSAIDS (Non-Steroidal Allergy Severe ASTHMA/HIVE Verified 04/10/22 22:01 Anti-Inflamma S peanut Allergy Severe HIVES Verified 04/10/22 22:01 pineapple Allergy Severe Swelling Verified 04/10/22 22:01 of Lip/Tongue/Throat Sulfa (Sulfonamide Allergy Severe ASTHMA/HIVE Verified 04/10/22 22:01 Antibiotics) S tramadol Allergy Severe HIVES Verified 04/10/22 22:01 latex Allergy Intermediate Rash Verified 04/10/22 22:01 pomegranate Allergy Intermediate HIVES Verified 04/10/22 22:01 aspirin Allergy Mild Dyspnea / Verified 04/10/22 22:01 SOB blue dye Allergy Mild Unknown Verified 04/10/22 22:01 codeine Allergy Mild Dyspnea / Verified 04/10/22 22:01 SOB ibuprofen Allergy Mild Unknown Verified 04/10/22 22:01 peanut oil Allergy Mild Unknown Verified 04/10/22 22:01 Penicillins Allergy Mild Unknown Verified 04/10/22 22:01 strawberry Allergy Mild Swelling Verified 04/10/22 22:01 of Lip/Tongue/Throat beclomethasone [From Qvar] Allergy Unknown Verified 04/10/22 22:01 budesonide [From Symbicort] Allergy Unknown Verified 04/10/22 22:01 formoterol [From Symbicort] Allergy Unknown Verified 04/10/22 22:01 fabian Allergy Severe Rash Uncoded 04/10/22 22:01 HUNGARIAN SAUSAGE Allergy Severe DIARRHEA/HI Uncoded 04/10/22 22:01 VES TILAPIA Allergy Severe SWOLLEN Uncoded 04/10/22 22:01 GLANDS Cueto Armendariz Allergy Intermediate SORE THROAT Uncoded 04/10/22 22:01 BLUEBERRIES Allergy Mild Unknown Uncoded 04/10/22 22:01 Review of Systems Review of Systems: All systems reviewed & are unremarkable except as noted in HPI and below Constitutional: Constitutional: Reports chills, Reports fatigue, Reports fever(s) and Reports weakness ENT: Denies nasal congestion and Denies sore throat Cardiovascular: Cardiovascular: Denies chest pain, Denies rapid heart rate and Denies radiating jaw, neck or arm pain Respiratory: Respiratory: Reports cough, Reports dyspnea and Reports wheezing Gastrointestinal: Gastrointestinal: Denies abdominal pain, Denies nausea and Denies vomiting PMFSH Past Medical History Medical History Anxiety Asthma (Unknown) Carpal tunnel syndrome Depression History of esophageal dilatation Hypercholesterolemia Hypertension IBS (irritable
[2022-09-30 18:48] LABS: Alanine Aminotransferase 20 U/L (6-35); Alkaline Phosphatase 88 U/L (38-126); Anion Gap 7 mmol/L (8-16); Aspartate Amino Transferase 21 U/L (14-36); Bilirubin,Total 0.6 mg/dL (0.2-1.3); Blood Urea Nitrogen 14 mg/dL (7-17); Calcium 8.9 mg/dL (8.4-10.2); Carbon Dioxide 28 mmol/L (22-30); Chloride 100 mmol/L (98-107); Estimated Glomerular Filt Rate > 60; Glucose 123 mg/dL (65-110); Lipase 28 U/L (23-300); Sodium 135 mmol/L (137-145)
[2022-09-30 18:56] LABS: Lactic Acid Reflex 1.8 mmol/L (0.7-2.0)
[2022-09-30 19:15] LABS: Band Neutrophils Percent 7 % (0-6); Eosinophils Absolute Manual 0.36 K/mm3 (0.02-0.5); Eosinophils Percent Manual 2 % (0-4); Lymphocytes Absolute Manual 0.73 K/mm3 (1.1-4.5); Monocytes Absolute Manual 0.55 K/mm3 (0.1-0.90); Monocytes Percent Manual 3 % (3-9); Neutrophils Absolute Manual 16.74 K/mm3 (1.7-7.2); Neutrophils Percent Manual 84 % (46-73); Platelet Estimate Adequate (Adequate); Schistocytes None Seen (NORMAL); Total Cells Counted 100
[2022-09-30 19:16] LABS: Anisocytosis 1+ (NORMAL); Hypochromasia 1+ (NORMAL)
[2022-09-30 20:07] LABS: Influenza A QL RT-PCR Negative (Negative); Influenza B QL RT-PCR Negative (Negative); SARS-CoV-2 RNA PCR Negative (Negative)
[2022-09-30 20:28] VITALS: BP 114/64; PULSE 111; RESP 20; O2SAT 94
[2022-09-30] MEDS: AZITHROMYCIN 500 MG/NS 250 ML 500 MG/250 ML BAG 250 MG IVPB (21:02)
[2022-09-30 23:06] VITALS: BP 108/61; PULSE 115; RESP 18; O2SAT 96
[2022-09-30] MEDS: SODIUM CHLORIDE 0.9% IV 1,000 ML 125 ML IV CONT (23:31)
--- NOTE | 2022-09-30 23:33 | ADMGEN ---
This patient, Octavia Smith, was admitted to 2 Medical Room 259-01. Patient/family oriented to hospital policies and general routines including ID bracelet, bed and alarms, visiting hours, pain management, procedures, bathroom and other care routines, personal items, smoking policy, room service/diet, and visiting hours. Information on how to activate the Rapid Response Team has been discussed. Patient/Family are encouraged to report perceived risks to care and to ask questions if they do not understand what they are told or what they should do.
[2022-10-01] VITALS (18 sets, daily range): BP systolic 102–129; BP diastolic 51–72; PULSE 96–118; RESP 16–21; TEMP 36.8–39.3; O2SAT 92–100; BMI 46.9
[2022-10-01] MEDS: IPRATROPIUM BR 0.02% INH SOLN 0.5 MG/2.5 ML VIAL INHALATION ×4 (02:58→20:29)
[2022-10-01] MEDS: LEVALBUTEROL NEB 1.25 MG/3 ML 0.63 MG INHALATION ×4 (02:58→20:29)
[2022-10-01 05:17] LABS: Basophils Percent Auto 0.2 % (0.2-1.2); Hematocrit 34.1 % (37.0-47.0); Hemoglobin 10.7 g/dL (12.0-15.0); Immature Granulocyte Absolute 0.13 K/mm3 (0.00-0.031); Immature Granulocyte Percent A 0.7 % (0-0.5); Lymphocytes Absolute Auto 1.31 K/mm3 (0.9-3.2); Lymphocytes Percent Auto 7.3 % (18.3-44.2); Mean Corpuscular HGB Conc 31.4 g/dl (32-36); Mean Corpuscular Hemoglobin 26.7 pg (26-34); Mean Platelet Volume 9.7 fl (7.4-10.4); Monocytes Absolute Auto 0.8 K/mm3 (0.1-0.6); Monocytes Percent Auto 4.6 % (2.6-8.5); Neutrophils Absolute Auto 15.6 K/mm3 (1.3-6.7); Neutrophils Percent Auto 87.2 % (45.5-73.1); Platelet Count Result 221 k/mm3 (150-375); Red Blood Count 4.01 M/mm3 (4.2-5.4); Red Cell Distribution Width 15.3 % (11.5-14.5); White Blood Count 17.9 K/mm3 (4.5-10.0)
[2022-10-01] MEDS: ACETAMINOPHEN 325 MG TABLET 650 MG PO ×3 (05:55→20:59)
[2022-10-01] MEDS: SODIUM CHLORIDE 0.9% IV 1,000 ML 125 ML IV CONT ×2 (09:06→23:54)
--- NOTE | 2022-10-01 14:49 | PM.IMHP ---
H&P: HPI History of Present Illness Date/Time: 10/01/22 14:49 Chief Complaint: Chills Narrative: Date of service: 10/01/2022 Octavia Smith is a 42-year-old female with a history of asthma, hypertension, IBS, untreated sleep apnea, and CHF who presented to the emergency department on 09/30/2022 with complaints of chills that began yesterday. She thought this was her anemia that was bothering her and making feel cold and so she came in for evaluation. With further questioning, she indicates that about 2 weeks ago she had two spider bites, 1 on her right knee and 1 on her right ankle. She popped the 1 on her right knee and states that this resolved but the one on her right ankle has been draining pus and she became concerned that it was infected. She states that yesterday she had 2 episodes of vomiting and notice blood her emesis. She was not really able to describe this in detail. She complains chronic shortness of breath that is unchanged. She denies cough or wheezing. She has had a poor appetite. She denies fevers or chills. She endorses some epigastric discomfort but denies lower abdominal pain. Had 1 episode of diarrhea yesterday but no abscess today. She denies any blood in her stool. In the ED, she was tachycardic, additional vital signs were stable, WBC 18.4, additional laboratory workup unremarkable, COVID and influenza negative, CXR showed opacities in the left lower lung zone which could represent atelectasis or pneumonia in she was noted to have cellulitis surrounding her left ankle on exam. Review of Systems Review of Systems: All systems reviewed & are unremarkable except as noted in HPI and below PMFSH Past Medical History Medical History Anxiety Asthma (Unknown) Carpal tunnel syndrome Depression History of esophageal dilatation Hypercholesterolemia Hypertension IBS (irritable bowel syndrome) Morbid obesity Neuropathy involving both lower extremities Nexplanon insertion insertion - 01/17/2020 NELSON (obstructive sleep apnea) Surgical History Surgical History History of section History of cholecystectomy Family History Family History Mother Hypertension Father Hypertension Asthma Social History Social History (Updated 10/01/22 @ 14:58 by Sandrine Figueroa PA-C) Social History: Ms. Smith lives with her mother. She designates her mother, Nannette, as her surrogate decision maker. She would like to be a full code. Years smoked: 25 Smoking status: Former smoker Tobacco type: cigarettes Alcohol intake: former Alcohol use details: No alcohol in >6 months Substance use: never Substance use type: does not use Lack of Transportation: No Lack of Food: Never True Current Housing: I Have Housing Concerned About Future Housing: No Difficulty Paying Gas/Electric Bills: No Difficulty Paying for Meds: No Currently Unemployed: No Education: High School Diploma/GED Difficulty w/ Childcare or Family Care: No Living arrangements: with family Gender identity (if verbalized by the patient): Female Spiritual care concerns: No Meds Home Medications and Allergies Home Medications Medication Instructions Recorded Confirmed Type albuterol sulfate 2.5 mg/3 mL 3 ml inhalation Q4H PRN Shortness 11/03/21 09/30/22 History (0.083 %) solution for nebulization Of Breath mometasone-formoterol HFA 200 200 inh inhalation BID 11/03/21 09/30/22 History mcg-5 mcg/actuation aerosol inhaler (Dulera) [id number] 1 tablet PO Q4-6H PRN Migraine 11/07/21 09/30/22 History 50 mg-325 mg-40 mg tablet Headache pantoprazole 40 mg tablet,delayed 40 mg PO BID 11/07/21 09/30/22 History release albuterol sulfate 90 mcg/actuation 1 inh inhalation Q4H PRN shortness 01/14/22 05
[2022-10-01] MEDS: VANCOMYCIN 1,250 MG/NS 250 ML 1,250 MG/250 ML BAG 166.67 MG IVPB ×2 (17:27→21:00)
[2022-10-01] MEDS: PANTOPRAZOLE 40 MG TABLET PO (17:28)
[2022-10-01 18:50] LABS: Appearance Urine Clear (Clear); Bacteria Urine None Seen /hpf; Bilirubin Urine Negative (Negative); Blood Urine Negative (Negative); Color Urine Yellow (Yellow); Glucose Urine UA Negative (Negative); Ketones Urine Negative (Negative); Leukocyte Esterase Ur Negative LEU/UL (Negative); Nitrate Urine Negative (Negative); Non Pathogenic Casts 0-2; Protein Urine Trace mg/dL (Negative); Specific Grav Ur 1.009 (1.001-1.035); Squamous Epithelial Cell Urine Occasional /hpf (Few); Urobilinogen Urine 0.2 mg/dL (<2.0); WBC Urine 0-5 /hpf; pH Urine 6.5 (5.0-9.0)
[2022-10-01 18:52] LABS: Add Urine Microscopic? YES
[2022-10-01] MEDS: MUPIROCIN 2% OINT 22 GM TUBE 1 APPLIC TOPICAL (19:00)
[2022-10-01 19:31] LABS: IFOB Positive Control Positive; Immunochemical Fecal Occult Bl Negative (N)
[2022-10-01] MEDS: FLUTICASONE/SALMETEROL 230-21 MCG INHALER 1 PUFF 2 PUFF INHALATION (20:30)
[2022-10-01] MEDS: guaiFENesin 12 HR 600 MG TABCR PO (20:58)
[2022-10-01] MEDS: AZITHROMYCIN 500 MG/NS 250 ML 500 MG/250 ML BAG 250 MG IVPB (21:53)
[2022-10-01] MEDS: CHLORHEXIDINE GLUCONATE 4% SOL 120 ML BTL 1 APPLIC TOPICAL (21:54)
--- NOTE | 2022-10-01 22:51 | PC.NURSE ---
PATIENTS FEET BLACK ON BOTTOM AND CRUSTY. FOOT SOAK WITH CHLORHEXADINE DONE
[2022-10-02] VITALS (10 sets, daily range): BP systolic 105–125; BP diastolic 47–53; PULSE 55–99; RESP 18–21; TEMP 35.7–37.7; O2SAT 97–100
[2022-10-02] MEDS: LEVALBUTEROL NEB 1.25 MG/3 ML 0.63 MG INHALATION ×3 (02:25→13:55)
[2022-10-02] MEDS: IPRATROPIUM BR 0.02% INH SOLN 0.5 MG/2.5 ML VIAL INHALATION ×3 (02:25→13:55)
[2022-10-02] MEDS: ACETAMINOPHEN 325 MG TABLET 650 MG PO ×2 (03:54→22:23)
[2022-10-02 05:26] LABS: Basophils Absolute Auto 0.1 K/mm3 (0.0-0.1); Basophils Percent Auto 0.4 % (0.2-1.2); Eosinophils Absolute Auto 0.1 K/mm3 (0-0.3); Hematocrit 32.7 % (37.0-47.0); Hemoglobin 10.4 g/dL (12.0-15.0); Immature Granulocyte Percent A 0.7 % (0-0.5); Lymphocytes Absolute Auto 1.24 K/mm3 (0.9-3.2); Lymphocytes Percent Auto 8.6 % (18.3-44.2); Mean Corpuscular HGB Conc 31.8 g/dl (32-36); Mean Corpuscular Hemoglobin 27.2 pg (26-34); Mean Corpuscular Volume 85.4 fl (80-100); Mean Platelet Volume 9.7 fl (7.4-10.4); Monocytes Absolute Auto 0.8 K/mm3 (0.1-0.6); Monocytes Percent Auto 5.6 % (2.6-8.5); Neutrophils Percent Auto 83.7 % (45.5-73.1); Platelet Count Result 193 k/mm3 (150-375); Red Blood Count 3.83 M/mm3 (4.2-5.4); Red Cell Distribution Width 15.5 % (11.5-14.5); White Blood Count 14.4 K/mm3 (4.5-10.0)
[2022-10-02 05:42] LABS: Alanine Aminotransferase 18 U/L (6-35); Albumin Level 3.3 g/dL (3.5-5.1); Alkaline Phosphatase 81 U/L (38-126); Anion Gap 7 mmol/L (8-16); Aspartate Amino Transferase 24 U/L (14-36); Bilirubin,Total 0.5 mg/dL (0.2-1.3); Blood Urea Nitrogen 10 mg/dL (7-17); Calcium 7.7 mg/dL (8.4-10.2); Carbon Dioxide 26 mmol/L (22-30); Chloride 102 mmol/L (98-107); Estimated CRCL calculation 98 ml/min; Estimated Glomerular Filt Rate > 60; Glucose 106 mg/dL (65-110); Potassium 3.6 mmol/L (3.4-5.0); Sodium 135 mmol/L (137-145)
[2022-10-02 06:07] LABS: CRP 32.9 mg/dL (<1.0)
[2022-10-02] MEDS: FLUTICASONE/SALMETEROL 230-21 MCG INHALER 1 PUFF 2 PUFF INHALATION ×2 (08:25→21:20)
[2022-10-02] MEDS: LOSARTAN POTASSIUM 50 MG TABLET PO (08:42)
[2022-10-02] MEDS: busPIRone HCL 10 MG TABLET PO (08:42)
[2022-10-02] MEDS: guaiFENesin 12 HR 600 MG TABCR PO ×2 (08:42→22:25)
[2022-10-02] MEDS: MUPIROCIN 2% OINT 22 GM TUBE 1 APPLIC TOPICAL (08:42)
[2022-10-02] MEDS: PANTOPRAZOLE 40 MG TABLET PO ×2 (08:42→17:19)
[2022-10-02] MEDS: FUROSEMIDE 40 MG TABLET PO (08:42)
[2022-10-02] MEDS: ACETAMINOPHEN/BUTALBITAL/CAFFEINE 325-50-40 MG TABLET (FIORICET) 1 TAB PO ×3 (08:46→22:23)
--- NOTE | 2022-10-02 09:07 | P.PNIM_ITS ---
Progress Note: A&P Assessment and Plan (1) Sepsis: Qualifiers: Sepsis type: sepsis due to unspecified organism Sepsis acute organ dysfunction status: without acute organ dysfunction Qualified Code(s): A41.9 - Sepsis, unspecified organism Code(s): A41.9 - Sepsis, unspecified organism Status: Acute Assessment and Plan: Patient septic on presentation with tachycardia, fever, and leukocytosis in the setting of cellulitis and pneumonia * Continue IV antibiotics * WBC trending down today * Lactic acid 1.8 and within normal limits * CRP 32, but no value prior to antibiotics to compare * Blood cultures negative to date. * Patient is hemodynamically stable and tolerating PO. Will saline lock IV fluids for now. (2) Cellulitis: Qualifiers: Site of cellulitis: extremity Site of cellulitis of extremity: lower extremity Laterality: right Qualified Code(s): L03.115 - Cellulitis of right lower limb Code(s): L03.90 - Cellulitis, unspecified Status: Acute Assessment and Plan: Cellulitis of right ankle surrounding small scab which patient reports is from spider bite * Continued on IV ceftriaxone 1 gram daily for pneumonia. Consider increasing to 2 grams if not improving in 24 hours. * Continue IV vancomycin for coverage of MRSA and gram positive organisms, first dose 10/01/22 * Consulted Wound Care and appreciate recommendations. * Trend CRP * Continue mupirocin 2% ointment to wound and dry gauze. * H/O MRSA infection- will start decolonization with bactroban nasal ointment BID and daily hibiclens wash. * Check Venous US r/o DVT and JAELYN r/o arterial disease * A1c 4.8% (3) Pneumonia: Qualifiers: Pneumonia type: due to unspecified organism Laterality: left Lung location: lower lobe of lung Qualified Code(s): J18.9 - Pneumonia, unspecified organism Code(s): J18.9 - Pneumonia, unspecified organism Status: Acute Assessment and Plan: CXR with opacities in the left lower lung zone which could represent atelectasis versus pneumonia * Continue ceftriaxone and azithromycin, first dose 09/30/22 * COVID and influenza negative * urinary Legionella and pneumococcal antigens pending * Attempt to obtain sputum culture- no sputum to culture * Supportive care to include bronchodilators, expectorants, incentive spirometry * She reports h/o MRSA pneumonia (4) Vomiting: Qualifiers: Vomiting type: unspecified Nausea presence: with nausea Qualified Code(s): R11.2 - Nausea with vomiting, unspecified Code(s): R11.10 - Vomiting, unspecified Status: Resolved Assessment and Plan: Patient reported episodes emesis with concerns of blood in emesis, not able to provide further details * stool for occult blood negative and gastric occult blood pending * Patient is tolerating p.o. intake at this time. (5) Hypertension: Qualifiers: Hypertension type: primary hypertension Qualified Code(s): I10 - Essential (primary) hypertension Code(s): I10 - Essential (primary) hypertension Status: Chronic Assessment and Plan: chronic, blood pressures reviewed * Continue home losartan, furosemide and diltiazem * Vitals stable. (6) NELSON (obstructive sleep apnea): Code(s): G47.33 - Obstructive sleep apnea (adult) (pediatric) Status: Acute Assessment and Plan: Untreated NELSON * Patient reports that she has been attempting to have a sleep study, but has had to cancel as she has not been able to arrange for chil
--- NOTE | 2022-10-02 09:07 | PM.IMPN ---
Progress Note: A&P Assessment and Plan (1) Sepsis: Qualifiers: Sepsis type: sepsis due to unspecified organism Sepsis acute organ dysfunction status: without acute organ dysfunction Qualified Code(s): A41.9 - Sepsis, unspecified organism Code(s): A41.9 - Sepsis, unspecified organism Status: Acute Assessment and Plan: Patient septic on presentation with tachycardia, fever, and leukocytosis in the setting of cellulitis and pneumonia Continue IV antibiotics WBC trending down today Lactic acid 1.8 and within normal limits CRP 32, but no value prior to antibiotics to compare Blood cultures negative to date. Patient is hemodynamically stable and tolerating PO. Will saline lock IV fluids for now. (2) Cellulitis: Qualifiers: Site of cellulitis: extremity Site of cellulitis of extremity: lower extremity Laterality: right Qualified Code(s): L03.115 - Cellulitis of right lower limb Code(s): L03.90 - Cellulitis, unspecified Status: Acute Assessment and Plan: Cellulitis of right ankle surrounding small scab which patient reports is from spider bite Continued on IV ceftriaxone 1 gram daily for pneumonia. Consider increasing to 2 grams if not improving in 24 hours. Continue IV vancomycin for coverage of MRSA and gram positive organisms, first dose 10/01/22 Consulted Wound Care and appreciate recommendations. Trend CRP Continue mupirocin 2% ointment to wound and dry gauze. H/O MRSA infection- will start decolonization with bactroban nasal ointment BID and daily hibiclens wash. Check Venous US r/o DVT and JAELYN r/o arterial disease A1c 4.8% (3) Pneumonia: Qualifiers: Pneumonia type: due to unspecified organism Laterality: left Lung location: lower lobe of lung Qualified Code(s): J18.9 - Pneumonia, unspecified organism Code(s): J18.9 - Pneumonia, unspecified organism Status: Acute Assessment and Plan: CXR with opacities in the left lower lung zone which could represent atelectasis versus pneumonia Continue ceftriaxone and azithromycin, first dose 09/30/22 COVID and influenza negative urinary Legionella and pneumococcal antigens pending Attempt to obtain sputum culture- no sputum to culture Supportive care to include bronchodilators, expectorants, incentive spirometry She reports h/o MRSA pneumonia (4) Vomiting: Qualifiers: Vomiting type: unspecified Nausea presence: with nausea Qualified Code(s): R11.2 - Nausea with vomiting, unspecified Code(s): R11.10 - Vomiting, unspecified Status: Resolved Assessment and Plan: Patient reported episodes emesis with concerns of blood in emesis, not able to provide further details stool for occult blood negative and gastric occult blood pending Patient is tolerating p.o. intake at this time. (5) Hypertension: Qualifiers: Hypertension type: primary hypertension Qualified Code(s): I10 - Essential (primary) hypertension Code(s): I10 - Essential (primary) hypertension Status: Chronic Assessment and Plan: chronic, blood pressures reviewed Continue home losartan, furosemide and diltiazem Vitals stable. (6) NELSON (obstructive sleep apnea): Code(s): G47.33 - Obstructive sleep apnea (adult) (pediatric) Status: Acute Assessment and Plan: Untreated NELSON Patient reports that she has been attempting to have a sleep study, but has had to cancel as she has not been able to arrange for childcare She is not currently following with a PCP and will need to reestablish care to initiate appropriate treatment for NELSON Will check overnight apnea test for nocturnal hypoxia Plan CODE STATUS: FULL CODE Discharge disposition: from home. Antibiotic day: day 3 Rocephin & Azithromycin for pneumonia, day 2 Vancomycin for cellulitis Estimated LOS: 2-3 days pending improvement in cellulitis Time Spent With Pa
[2022-10-02 12:34] LABS: Hemoglobin A1C 4.8 % (<5.7)
[2022-10-02] MEDS: MUPIROCIN 2% OINT 22 GM TUBE 1 APPLIC EACH NARE (22:25)
[2022-10-02] MEDS: AZITHROMYCIN 500 MG/NS 250 ML 500 MG/250 ML BAG 250 MG IVPB (23:22)
[2022-10-03] VITALS (8 sets, daily range): BP systolic 104–114; BP diastolic 48–65; PULSE 74–87; RESP 18–20; TEMP 36.2–36.8; O2SAT 95–100
[2022-10-03] MEDS: ALBUTEROL SULFATE (*SP) AEROSOL 1 PUFF INHALATION (01:22)
[2022-10-03 06:31] LABS: Basophils Percent Auto 0.3 % (0.2-1.2); Eosinophils Absolute Auto 0.4 K/mm3 (0-0.3); Eosinophils Percent Auto 4.9 % (0-4.4); Hemoglobin 9.8 g/dL (12.0-15.0); Immature Granulocyte Absolute 0.03 K/mm3 (0.00-0.031); Immature Granulocyte Percent A 0.4 % (0-0.5); Lymphocytes Percent Auto 15.6 % (18.3-44.2); Mean Corpuscular HGB Conc 31.6 g/dl (32-36); Mean Corpuscular Hemoglobin 26.6 pg (26-34); Mean Platelet Volume 10.1 fl (7.4-10.4); Monocytes Absolute Auto 0.6 K/mm3 (0.1-0.6); Monocytes Percent Auto 7.7 % (2.6-8.5); Neutrophils Absolute Auto 5.5 K/mm3 (1.3-6.7); Neutrophils Percent Auto 71.1 % (45.5-73.1); Platelet Count Result 180 k/mm3 (150-375); Red Blood Count 3.69 M/mm3 (4.2-5.4); Red Cell Distribution Width 15.2 % (11.5-14.5); White Blood Count 7.7 K/mm3 (4.5-10.0)
[2022-10-03] MEDS: ONDANSETRON HCL ODT 4 MG TABLET PO ×2 (06:40→20:06)
[2022-10-03] MEDS: ACETAMINOPHEN/BUTALBITAL/CAFFEINE 325-50-40 MG TABLET (FIORICET) 1 TAB PO ×3 (06:40→22:20)
[2022-10-03 06:53] LABS: Alanine Aminotransferase 19 U/L (6-35); Albumin Level 3.3 g/dL (3.5-5.1); Alkaline Phosphatase 72 U/L (38-126); Anion Gap 5 mmol/L (8-16); Aspartate Amino Transferase 32 U/L (14-36); Bilirubin,Total 0.2 mg/dL (0.2-1.3); Blood Urea Nitrogen 6 mg/dL (7-17); Calcium 7.7 mg/dL (8.4-10.2); Carbon Dioxide 29 mmol/L (22-30); Chloride 104 mmol/L (98-107); Estimated CRCL calculation 124 ml/min; Estimated Glomerular Filt Rate > 60; Glucose 119 mg/dL (65-110); Potassium 3.1 mmol/L (3.4-5.0); Sodium 138 mmol/L (137-145)
[2022-10-03 06:54] LABS: Vancomycin Trough 10.9 ug/mL (10.0-20.0)
[2022-10-03 07:05] LABS: CRP 22.3 mg/dL (<1.0)
[2022-10-03] MEDS: FLUTICASONE/SALMETEROL 230-21 MCG INHALER 1 PUFF 2 PUFF INHALATION (07:52)
[2022-10-03] MEDS: FUROSEMIDE 40 MG TABLET PO (08:06)
[2022-10-03] MEDS: LOSARTAN POTASSIUM 50 MG TABLET PO (08:06)
[2022-10-03] MEDS: guaiFENesin 12 HR 600 MG TABCR PO ×2 (08:06→22:22)
[2022-10-03] MEDS: PANTOPRAZOLE 40 MG TABLET PO ×2 (08:06→16:37)
[2022-10-03] MEDS: busPIRone HCL 10 MG TABLET PO (08:06)
--- NOTE | 2022-10-03 08:14 | P.PNIM_ITS ---
Progress Note: A&P Assessment and Plan (1) Sepsis: Qualifiers: Sepsis acute organ dysfunction status: without acute organ dysfunction Sepsis type: sepsis due to unspecified organism Qualified Code(s): A41.9 - S epsis, unspecified organism Code(s): A41.9 - Sepsis, unspecified organism Status: Resolved Assessment and Plan: Patient septic on presentation with tachycardia, fever, and leukocytosis in the setting of cellulitis and pneumonia * Continue IV/PO antibiotics as below * WBC trending down * Lactic acid 1.8 and within normal limits * CRP 32, but no value prior to antibiotics to compare * Blood cultures negative to date. * Patient is hemodynamically stable and tolerating PO. Will saline lock IV fluids for now. * 10/03 Improving. Last low-grade temp 100.2F on 10/01/22 (2) Cellulitis: Qualifiers: Laterality: right Site of cellulitis: extremity Site of cellulitis of extremity: lower extremity Qualified Code(s): L03.115 - Cellulitis of right lower limb Code(s): L03.90 - Cellulitis, unspecified Status: Acute Assessment and Plan: Cellulitis of right ankle surrounding small scab which patient reports is from spider bite * Continued on IV ceftriaxone 1 gram daily for pneumonia. Consider increasing to 2 grams if not improving in 24 hours. * Continue IV vancomycin for coverage of MRSA and gram positive organisms, first dose 10/01/22 * Consulted Wound Care and appreciate recommendations. * Trend CRP * Continue mupirocin 2% ointment to wound and dry gauze. * H/O MRSA infection- will start decolonization with bactroban nasal ointment BID and daily hibiclens wash x5 days. * Venous US negative for DVT * JAELYN without evidence of PAD * A1c 4.8% * Vancomycin Trough- 10.8 and dose increased to 1500 mg Q8 hours. (3) Pneumonia: Qualifiers: Laterality: left Lung location: lower lobe of lung Pneumonia type: due to unspecified organism Qualified Code(s): J18.9 - Pneumonia, unspecified organism Code(s): J18.9 - Pneumonia, unspecified organism Status: Acute Assessment and Plan: CXR with opacities in the left lower lung zone which could represent atelectasis versus pneumonia * Treated ceftriaxone and azithromycin 09/30/22- 10/03/22 * COVID and influenza negative * urinary Legionella and pneumococcal antigens pending * Attempt to obtain sputum culture- no sputum to culture * Supportive care to include bronchodilators, expectorants, incentive spirometry * She reports h/o MRSA pneumonia * 10/03/22- Change to Levaquin 750 mg PO daily x 4 days, for total 7-day course. Patient afebrile x 48 hours and on room air. (4) Vomiting: Qualifiers: Nausea presence: with nausea Vomiting type: unspecified Qualified Code(s): R11.2 - Nausea with vomiting, unspecified Code(s): R11.10 - Vomiting, unspecified Status: Resolved Assessment and Plan: Patient reported episodes emesis with concerns of blood in emesis, not able to provide further details * stool for occult blood negative and gastric occult blood pending * Patient is tolerating p.o. intake at this time. * PRN zofran for nausea or vomiting. (5) Hypertension: Qualifiers: Hypertension type: primary hypertension Qualified Code(s): I10 - Essential (primary) hypertension Code(s): I10 - Essential (primary) hypertension Status: Chronic Assessment and Plan: chronic, blood pressures reviewed * Continue home losartan, furosemide and diltiazem * Vitals stable. (6) O
--- NOTE | 2022-10-03 08:14 | PM.IMPN ---
Progress Note: A&P Assessment and Plan (1) Sepsis: Qualifiers: Sepsis acute organ dysfunction status: without acute organ dysfunction Sepsis type: sepsis due to unspecified organism Qualified Code(s): A41.9 - Sepsis, unspecified organism Code(s): A41.9 - Sepsis, unspecified organism Status: Resolved Assessment and Plan: Patient septic on presentation with tachycardia, fever, and leukocytosis in the setting of cellulitis and pneumonia Continue IV/PO antibiotics as below WBC trending down Lactic acid 1.8 and within normal limits CRP 32, but no value prior to antibiotics to compare Blood cultures negative to date. Patient is hemodynamically stable and tolerating PO. Will saline lock IV fluids for now. 10/03 Improving. Last low-grade temp 100.2F on 10/01/22 (2) Cellulitis: Qualifiers: Laterality: right Site of cellulitis: extremity Site of cellulitis of extremity: lower extremity Qualified Code(s): L03.115 - Cellulitis of right lower limb Code(s): L03.90 - Cellulitis, unspecified Status: Acute Assessment and Plan: Cellulitis of right ankle surrounding small scab which patient reports is from spider bite Continued on IV ceftriaxone 1 gram daily for pneumonia. Consider increasing to 2 grams if not improving in 24 hours. Continue IV vancomycin for coverage of MRSA and gram positive organisms, first dose 10/01/22 Consulted Wound Care and appreciate recommendations. Trend CRP Continue mupirocin 2% ointment to wound and dry gauze. H/O MRSA infection- will start decolonization with bactroban nasal ointment BID and daily hibiclens wash x5 days. Venous US negative for DVT JAELYN without evidence of PAD A1c 4.8% Vancomycin Trough- 10.8 and dose increased to 1500 mg Q8 hours. (3) Pneumonia: Qualifiers: Laterality: left Lung location: lower lobe of lung Pneumonia type: due to unspecified organism Qualified Code(s): J18.9 - Pneumonia, unspecified organism Code(s): J18.9 - Pneumonia, unspecified organism Status: Acute Assessment and Plan: CXR with opacities in the left lower lung zone which could represent atelectasis versus pneumonia Treated ceftriaxone and azithromycin 09/30/22- 10/03/22 COVID and influenza negative urinary Legionella and pneumococcal antigens pending Attempt to obtain sputum culture- no sputum to culture Supportive care to include bronchodilators, expectorants, incentive spirometry She reports h/o MRSA pneumonia 10/03/22- Change to Levaquin 750 mg PO daily x 4 days, for total 7-day course. Patient afebrile x 48 hours and on room air. (4) Vomiting: Qualifiers: Nausea presence: with nausea Vomiting type: unspecified Qualified Code(s): R11.2 - Nausea with vomiting, unspecified Code(s): R11.10 - Vomiting, unspecified Status: Resolved Assessment and Plan: Patient reported episodes emesis with concerns of blood in emesis, not able to provide further details stool for occult blood negative and gastric occult blood pending Patient is tolerating p.o. intake at this time. PRN zofran for nausea or vomiting. (5) Hypertension: Qualifiers: Hypertension type: primary hypertension Qualified Code(s): I10 - Essential (primary) hypertension Code(s): I10 - Essential (primary) hypertension Status: Chronic Assessment and Plan: chronic, blood pressures reviewed Continue home losartan, furosemide and diltiazem Vitals stable. (6) NELSON (obstructive sleep apnea): Code(s): G47.33 - Obstructive sleep apnea (adult) (pediatric) Status: Acute Assessment and Plan: Untreated NELSON Patient reports that she has been attempting to have a sleep study, but has had to cancel as she has not been able to arrange for childcare She is not currently following with a PCP and will need to reestablish care to initiate appropriate treatment for NELSON
[2022-10-03 08:31] LABS: Magnesium 1.9 mg/dL (1.6-2.3)
[2022-10-03] MEDS: MUPIROCIN 2% OINT 22 GM TUBE 1 APPLIC TOPICAL (09:28)
[2022-10-03] MEDS: CHLORHEXIDINE GLUCONATE 4% SOL 120 ML BTL 1 APPLIC TOPICAL (09:28)
[2022-10-03] MEDS: EUCERIN CREAM 120 GM JAR 1 APPLIC TOPICAL (09:28)
[2022-10-03] MEDS: levoFLOXacin 750 MG TABLET PO (09:28)
[2022-10-03] MEDS: MUPIROCIN 2% OINT 22 GM TUBE 1 APPLIC EACH NARE ×2 (09:28→22:22)
[2022-10-03] MEDS: POTASSIUM CHLORIDE 20 MEQ TABLET 40 MEQ PO (09:41)
[2022-10-03] MEDS: diphenhydrAMINE HCl CAP 25 MG CAPSULE PO ×2 (13:08→22:21)
[2022-10-03] MEDS: ACETAMINOPHEN 325 MG TABLET 650 MG PO ×2 (16:41→22:20)
[2022-10-03] MEDS: NYSTATIN 100,000 UNITS/ML SUSP 5 ML ORAL.SUSP PO ×2 (16:45→22:22)
[2022-10-03] MEDS: IPRATROPIUM BR 0.02% INH SOLN 0.5 MG/2.5 ML VIAL INHALATION (21:39)
[2022-10-04] VITALS (7 sets, daily range): BP systolic 93–128; BP diastolic 51–63; PULSE 70–88; RESP 18–20; TEMP 35.6–36.2; O2SAT 92–100
[2022-10-04] MEDS: ACETAMINOPHEN/BUTALBITAL/CAFFEINE 325-50-40 MG TABLET (FIORICET) 1 TAB PO ×3 (05:13→20:14)
[2022-10-04] MEDS: ACETAMINOPHEN 325 MG TABLET 650 MG PO ×3 (05:14→20:12)
[2022-10-04] MEDS: ONDANSETRON HCL ODT 4 MG TABLET PO ×2 (05:18→20:14)
[2022-10-04 06:54] LABS: Basophils Absolute Auto 0.1 K/mm3 (0.0-0.1); Basophils Percent Auto 0.8 % (0.2-1.2); Eosinophils Absolute Auto 0.5 K/mm3 (0-0.3); Eosinophils Percent Auto 7.8 % (0-4.4); Hematocrit 32.6 % (37.0-47.0); Hemoglobin 10.1 g/dL (12.0-15.0); Immature Granulocyte Absolute 0.05 K/mm3 (0.00-0.031); Immature Granulocyte Percent A 0.8 % (0-0.5); Lymphocytes Absolute Auto 1.45 K/mm3 (0.9-3.2); Mean Corpuscular Hemoglobin 26.6 pg (26-34); Mean Platelet Volume 9.9 fl (7.4-10.4); Monocytes Absolute Auto 0.6 K/mm3 (0.1-0.6); Monocytes Percent Auto 9.4 % (2.6-8.5); Neutrophils Absolute Auto 3.9 K/mm3 (1.3-6.7); Neutrophils Percent Auto 59.2 % (45.5-73.1); Platelet Count Result 227 k/mm3 (150-375); Red Blood Count 3.79 M/mm3 (4.2-5.4); Red Cell Distribution Width 15.4 % (11.5-14.5); White Blood Count 6.6 K/mm3 (4.5-10.0)
[2022-10-04 07:10] LABS: Anion Gap 5 mmol/L (8-16); Blood Urea Nitrogen 7 mg/dL (7-17); Carbon Dioxide 31 mmol/L (22-30); Chloride 103 mmol/L (98-107); Estimated CRCL calculation 110 ml/min; Estimated Glomerular Filt Rate > 60; Glucose 98 mg/dL (65-110); Potassium 3.7 mmol/L (3.4-5.0); Sodium 139 mmol/L (137-145)
[2022-10-04 07:17] LABS: Vancomycin Trough 23.5 ug/mL (10.0-20.0)
[2022-10-04 07:29] LABS: Procalcitonin 1.6 ng/mL
[2022-10-04] MEDS: FLUTICASONE/SALMETEROL 230-21 MCG INHALER 1 PUFF 2 PUFF INHALATION ×2 (08:00→21:21)
[2022-10-04] MEDS: busPIRone HCL 10 MG TABLET PO (08:59)
[2022-10-04] MEDS: guaiFENesin 12 HR 600 MG TABCR PO ×2 (09:00→20:15)
[2022-10-04] MEDS: levoFLOXacin 750 MG TABLET PO (09:00)
[2022-10-04] MEDS: NYSTATIN 100,000 UNITS/ML SUSP 5 ML ORAL.SUSP PO ×4 (09:01→20:15)
[2022-10-04] MEDS: PANTOPRAZOLE 40 MG TABLET PO ×2 (09:01→17:26)
[2022-10-04] MEDS: MUPIROCIN 2% OINT 22 GM TUBE 1 APPLIC EACH NARE ×2 (09:01→20:16)
[2022-10-04] MEDS: LOSARTAN POTASSIUM 50 MG TABLET PO (13:10)
[2022-10-04] MEDS: FUROSEMIDE 40 MG TABLET PO (13:10)
--- NOTE | 2022-10-04 13:22 | P.PNIM_ITS ---
Progress Note: A&P Assessment and Plan (1) Sepsis: Qualifiers: Sepsis acute organ dysfunction status: without acute organ dysfunction Sepsis type: sepsis due to unspecified organism Qualified Code(s): A41.9 - S epsis, unspecified organism Code(s): A41.9 - Sepsis, unspecified organism Status: Resolved Assessment and Plan: Patient septic on presentation with tachycardia, fever, and leukocytosis in the setting of cellulitis and pneumonia * Continue IV/PO antibiotics as below * WBC trending down * Lactic acid 1.8 and within normal limits * CRP 32, but no value prior to antibiotics to compare * Blood cultures negative to date. * Patient is hemodynamically stable and tolerating PO. Will saline lock IV fluids for now. * 10/03 Improving. Last low-grade temp 100.2F on 10/01/22 (2) Cellulitis: Qualifiers: Laterality: right Site of cellulitis: extremity Site of cellulitis of extremity: lower extremity Qualified Code(s): L03.115 - Cellulitis of right lower limb Code(s): L03.90 - Cellulitis, unspecified Status: Acute Assessment and Plan: Cellulitis of right ankle surrounding small scab which patient reports is from spider bite * Continued on IV ceftriaxone 1 gram daily for pneumonia. Consider increasing to 2 grams if not improving in 24 hours. * Continue IV vancomycin for coverage of MRSA and gram positive organisms, first dose 10/01/22 * Consulted Wound Care and appreciate recommendations. * Trend CRP * Continue mupirocin 2% ointment to wound and dry gauze. * H/O MRSA infection- will start decolonization with bactroban nasal ointment BID and daily hibiclens wash x5 days. * Venous US negative for DVT * JAELYN without evidence of PAD * A1c 4.8% * Vancomycin Trough- 10.8 and dose increased to 1500 mg Q8 hours. * 10/04/22 Vanc trough 23. Vancomycin dose decreased Q12 hours. cellulitis improving. Trial oral doxycycline 100 mg PO Q12 hours x 10 days. Monitor on oral antibiotics overnight. (3) Pneumonia: Qualifiers: Laterality: left Lung location: lower lobe of lung Pneumonia type: due to unspecified organism Qualified Code(s): J18.9 - Pneumonia, unspecified organism Code(s): J18.9 - Pneumonia, unspecified organism Status: Acute Assessment and Plan: CXR with opacities in the left lower lung zone which could represent atelectasis versus pneumonia * Treated ceftriaxone and azithromycin 09/30/22- 10/03/22 * COVID and influenza negative * urinary Legionella and pneumococcal antigens pending * Attempt to obtain sputum culture- no sputum to culture * Supportive care to include bronchodilators, expectorants, incentive spirometry * She reports h/o MRSA pneumonia * 10/03/22- Change to Levaquin 750 mg PO daily x 4 days, for total 7-day course. Patient afebrile x 48 hours and on room air. * Stable onn room air. (4) Vomiting: Qualifiers: Nausea presence: with nausea Vomiting type: unspecified Qualified Code(s): R11.2 - Nausea with vomiting, unspecified Code(s): R11.10 - Vomiting, unspecified Status: Resolved Assessment and Plan: Patient reported episodes emesis with concerns of blood in emesis, not able to provide further details * stool for occult blood negative and gastric occult blood pending * Patient is tolerating p.o. intake at this time. * PRN zofran for nausea or vomiting. (5) Hypertension: Qualifiers: Hypertension type: primary hypertension Qualified Code(s): I10 - Essential (primary) hypertension Code(s): I10 - [facility]
--- NOTE | 2022-10-04 13:22 | PM.IMPN ---
Progress Note: A&P Assessment and Plan (1) Sepsis: Qualifiers: Sepsis acute organ dysfunction status: without acute organ dysfunction Sepsis type: sepsis due to unspecified organism Qualified Code(s): A41.9 - Sepsis, unspecified organism Code(s): A41.9 - Sepsis, unspecified organism Status: Resolved Assessment and Plan: Patient septic on presentation with tachycardia, fever, and leukocytosis in the setting of cellulitis and pneumonia Continue IV/PO antibiotics as below WBC trending down Lactic acid 1.8 and within normal limits CRP 32, but no value prior to antibiotics to compare Blood cultures negative to date. Patient is hemodynamically stable and tolerating PO. Will saline lock IV fluids for now. 10/03 Improving. Last low-grade temp 100.2F on 10/01/22 (2) Cellulitis: Qualifiers: Laterality: right Site of cellulitis: extremity Site of cellulitis of extremity: lower extremity Qualified Code(s): L03.115 - Cellulitis of right lower limb Code(s): L03.90 - Cellulitis, unspecified Status: Acute Assessment and Plan: Cellulitis of right ankle surrounding small scab which patient reports is from spider bite Continued on IV ceftriaxone 1 gram daily for pneumonia. Consider increasing to 2 grams if not improving in 24 hours. Continue IV vancomycin for coverage of MRSA and gram positive organisms, first dose 10/01/22 Consulted Wound Care and appreciate recommendations. Trend CRP Continue mupirocin 2% ointment to wound and dry gauze. H/O MRSA infection- will start decolonization with bactroban nasal ointment BID and daily hibiclens wash x5 days. Venous US negative for DVT JAELYN without evidence of PAD A1c 4.8% Vancomycin Trough- 10.8 and dose increased to 1500 mg Q8 hours. 10/04/22 Vanc trough 23. Vancomycin dose decreased Q12 hours. cellulitis improving. Trial oral doxycycline 100 mg PO Q12 hours x 10 days. Monitor on oral antibiotics overnight. (3) Pneumonia: Qualifiers: Laterality: left Lung location: lower lobe of lung Pneumonia type: due to unspecified organism Qualified Code(s): J18.9 - Pneumonia, unspecified organism Code(s): J18.9 - Pneumonia, unspecified organism Status: Acute Assessment and Plan: CXR with opacities in the left lower lung zone which could represent atelectasis versus pneumonia Treated ceftriaxone and azithromycin 09/30/22- 10/03/22 COVID and influenza negative urinary Legionella and pneumococcal antigens pending Attempt to obtain sputum culture- no sputum to culture Supportive care to include bronchodilators, expectorants, incentive spirometry She reports h/o MRSA pneumonia 10/03/22- Change to Levaquin 750 mg PO daily x 4 days, for total 7-day course. Patient afebrile x 48 hours and on room air. Stable onn room air. (4) Vomiting: Qualifiers: Nausea presence: with nausea Vomiting type: unspecified Qualified Code(s): R11.2 - Nausea with vomiting, unspecified Code(s): R11.10 - Vomiting, unspecified Status: Resolved Assessment and Plan: Patient reported episodes emesis with concerns of blood in emesis, not able to provide further details stool for occult blood negative and gastric occult blood pending Patient is tolerating p.o. intake at this time. PRN zofran for nausea or vomiting. (5) Hypertension: Qualifiers: Hypertension type: primary hypertension Qualified Code(s): I10 - Essential (primary) hypertension Code(s): I10 - Essential (primary) hypertension Status: Chronic Assessment and Plan: chronic, blood pressures reviewed Continue home losartan, furosemide and diltiazem Vitals stable. (6) NELSON (obstructive sleep apnea): Code(s): G47.33 - Obstructive sleep apnea (adult) (pediatric) Status: Acute Assessment and Plan: Untreated NELSON Patient reports that she has been attempting to have a s
[2022-10-04] MEDS: CHLORHEXIDINE GLUCONATE 4% SOL 120 ML BTL 1 APPLIC TOPICAL (14:12)
--- NOTE | 2022-10-04 14:38 | PCRCNOTE ---
NOC HOME OXYGEN SET UP WITH [facility]. PHONE NUMBER [phone]
[2022-10-04] MEDS: EUCERIN CREAM 120 GM JAR 1 APPLIC TOPICAL (16:17)
[2022-10-04] MEDS: MUPIROCIN 2% OINT 22 GM TUBE 1 APPLIC TOPICAL (16:17)
[2022-10-04] MEDS: DOXYCYCLINE HYCLATE 100 MG TABLET PO (20:15)
[2022-10-04] MEDS: diphenhydrAMINE HCl CAP 25 MG CAPSULE PO (20:15)
[2022-10-05 04:38] VITALS: BP 101/61; PULSE 82; RESP 20; TEMP 37; O2SAT 98
[2022-10-05] MEDS: ACETAMINOPHEN/BUTALBITAL/CAFFEINE 325-50-40 MG TABLET (FIORICET) 1 TAB PO (05:16)
[2022-10-05] MEDS: ACETAMINOPHEN 325 MG TABLET 650 MG PO (05:17)
[2022-10-05] MEDS: ONDANSETRON HCL ODT 4 MG TABLET PO (05:18)
[2022-10-05] MEDS: diphenhydrAMINE HCl CAP 25 MG CAPSULE PO (05:21)
[2022-10-05] MEDS: FLUTICASONE/SALMETEROL 230-21 MCG INHALER 1 PUFF 2 PUFF INHALATION (07:40)
[2022-10-05 07:43] VITALS: PULSE 80; O2SAT 95
[2022-10-05 09:40] VITALS: BP 110/57; PULSE 75
[2022-10-05] MEDS: busPIRone HCL 10 MG TABLET PO (09:43)
[2022-10-05] MEDS: guaiFENesin 12 HR 600 MG TABCR PO (09:44)
[2022-10-05] MEDS: DOXYCYCLINE HYCLATE 100 MG TABLET PO (09:44)
[2022-10-05] MEDS: FUROSEMIDE 40 MG TABLET PO (09:44)
[2022-10-05] MEDS: LOSARTAN POTASSIUM 50 MG TABLET PO (09:45)
[2022-10-05] MEDS: levoFLOXacin 750 MG TABLET PO (09:45)
[2022-10-05] MEDS: PANTOPRAZOLE 40 MG TABLET PO (09:46)
[2022-10-05] MEDS: NYSTATIN 100,000 UNITS/ML SUSP 5 ML ORAL.SUSP PO ×2 (09:46→13:56)
[2022-10-05] MEDS: MUPIROCIN 2% OINT 22 GM TUBE 1 APPLIC EACH NARE (09:49)
--- NOTE | 2022-10-05 12:31 | P.DS_ITS ---
DS: Admitting Diagnosis Discharge Date 10/05/2022 Admitting Diagnosis Sepsis, unspecified organism Cellulitis, RLE Pneumonia, unspecified organism Essential (primary) hypertension, chronic Possible Obstructive sleep apnea (adult) DS: Discharge Diagnosis Discharge Diagnosis (1) Sepsis: Qualifiers: Sepsis acute organ dysfunction status: without acute organ dysfunction Sepsis type: sepsis due to unspecified organism Qualified Code(s): A41.9 - Sepsis, unspecified organism Code(s): A41.9 - Sepsis, unspecified organism Status: Resolved Assessment and Plan: Patient septic on presentation with tachycardia, fever, and leukocytosis in the setting of cellulitis and pneumonia * Treated with IV/PO antibiotics as below * WBC trended to normal * Lactic acid 1.8 and within normal limits * CRP 32 and trending down * Blood cultures negative to date. * Patient is hemodynamically stable and tolerating PO. Will saline lock IV fluids for now. * 10/03 Improving. Last low-grade temp 100.2F on 10/01/22 (2) Cellulitis: Qualifiers: Laterality: right Site of cellulitis: extremity Site of cellulitis of extremity: lower extremity Qualified Code(s): L03.115 - Cellulitis of right low er limb Code(s): L03.90 - Cellulitis, unspecified Status: Acute Assessment and Plan: Cellulitis of right ankle surrounding small scab which patient reports is from spider bite * Treated with IV ceftriaxone 1 gram daily for pneumonia * Started IV vancomycin for coverage of MRSA and gram positive organisms, first dose 10/01/22 and continued until 10/04/22 * Consulted Wound Care and appreciate recommendations- recommended to continue mupirocin 2% ointment to wound and dry gauze. * CRP and procalcitonin trending down at discharge. * H/O MRSA infection- will start decolonization with bactroban nasal ointment BID and daily hibiclens wash x5 days. * Venous US negative for DVT * JAELYN without evidence of PAD * A1c 4.8% * 10/03/22 Vancomycin Trough- 10.8 and dose increased to 1500 mg Q8 hours. * 10/04/22 Vanc trough . Vancomycin dose decreased Q12 hours. cellulitis improving. * 10/04/22 Transitioned to oral doxycycline 100 mg PO Q12 hours x 14 days. Given longer duration of antibiotics due to slow improvement. (3) Pneumonia: Qualifiers: Laterality: left Lung location: lower lobe of lung Pneumonia type: due to unspecified organism Qualified Code(s): J18.9 - Pneumonia, unspecified organism Code(s): J18.9 - Pneumonia, unspecified organism Status: Acute Assessment and Plan: CXR with opacities in the left lower lung zone which could represent atelectasis versus pneumonia * Treated ceftriaxone and azithromycin 09/30/22- 10/03/22 * COVID and influenza negative * urinary Legionella and pneumococcal antigens pending * Attempt to obtain sputum culture- no sputum to culture * Supportive care to include bronchodilators, expectorants, incentive spirometry * She reports h/o MRSA pneumonia * 10/03/22- Change to Levaquin 750 mg PO daily x 4 days, for total 7-day course. Patient afebrile x 48 hours and on room air. * Stable on room air. * 10/05/22 Antibiotic day 6 of 7. Last dose 10/06/22 (4) Vomiting: Qualifiers: Nausea presence: with nausea Vomiting type: unspecified Qualified Code(s): R11.2 - Nausea with vomiting, unspecified Code(s): R11.10 - Vomiting, unspecified Status: Resolved Assessment and Plan: Patient reported episodes emesis with concerns of blood in emesis, not able to
--- NOTE | 2022-10-05 12:31 | PM.DS ---
DS: Admitting Diagnosis Discharge Date 10/05/2022 Admitting Diagnosis Sepsis, unspecified organism Cellulitis, RLE Pneumonia, unspecified organism Essential (primary) hypertension, chronic Possible Obstructive sleep apnea (adult) DS: Discharge Diagnosis Discharge Diagnosis (1) Sepsis: Qualifiers: Sepsis acute organ dysfunction status: without acute organ dysfunction Sepsis type: sepsis due to unspecified organism Qualified Code(s): A41.9 - Sepsis, unspecified organism Code(s): A41.9 - Sepsis, unspecified organism Status: Resolved Assessment and Plan: Patient septic on presentation with tachycardia, fever, and leukocytosis in the setting of cellulitis and pneumonia Treated with IV/PO antibiotics as below WBC trended to normal Lactic acid 1.8 and within normal limits CRP 32 and trending down Blood cultures negative to date. Patient is hemodynamically stable and tolerating PO. Will saline lock IV fluids for now. 10/03 Improving. Last low-grade temp 100.2F on 10/01/22 (2) Cellulitis: Qualifiers: Laterality: right Site of cellulitis: extremity Site of cellulitis of extremity: lower extremity Qualified Code(s): L03.115 - Cellulitis of right lower limb Code(s): L03.90 - Cellulitis, unspecified Status: Acute Assessment and Plan: Cellulitis of right ankle surrounding small scab which patient reports is from spider bite Treated with IV ceftriaxone 1 gram daily for pneumonia Started IV vancomycin for coverage of MRSA and gram positive organisms, first dose 10/01/22 and continued until 10/04/22 Consulted Wound Care and appreciate recommendations- recommended to continue mupirocin 2% ointment to wound and dry gauze. CRP and procalcitonin trending down at discharge. H/O MRSA infection- will start decolonization with bactroban nasal ointment BID and daily hibiclens wash x5 days. Venous US negative for DVT JAELYN without evidence of PAD A1c 4.8% 10/03/22 Vancomycin Trough- 10.8 and dose increased to 1500 mg Q8 hours. 10/04/22 Vanc trough . Vancomycin dose decreased Q12 hours. cellulitis improving. 10/04/22 Transitioned to oral doxycycline 100 mg PO Q12 hours x 14 days. Given longer duration of antibiotics due to slow improvement. (3) Pneumonia: Qualifiers: Laterality: left Lung location: lower lobe of lung Pneumonia type: due to unspecified organism Qualified Code(s): J18.9 - Pneumonia, unspecified organism Code(s): J18.9 - Pneumonia, unspecified organism Status: Acute Assessment and Plan: CXR with opacities in the left lower lung zone which could represent atelectasis versus pneumonia Treated ceftriaxone and azithromycin 09/30/22- 10/03/22 COVID and influenza negative urinary Legionella and pneumococcal antigens pending Attempt to obtain sputum culture- no sputum to culture Supportive care to include bronchodilators, expectorants, incentive spirometry She reports h/o MRSA pneumonia 10/03/22- Change to Levaquin 750 mg PO daily x 4 days, for total 7-day course. Patient afebrile x 48 hours and on room air. Stable on room air. 10/05/22 Antibiotic day 6 of 7. Last dose 10/06/22 (4) Vomiting: Qualifiers: Nausea presence: with nausea Vomiting type: unspecified Qualified Code(s): R11.2 - Nausea with vomiting, unspecified Code(s): R11.10 - Vomiting, unspecified Status: Resolved Assessment and Plan: Patient reported episodes emesis with concerns of blood in emesis, not able to provide further details stool for occult blood negative and gastric occult blood pending Patient is tolerating p.o. intake at this time. PRN zofran for nausea or vomiting. (5) Hypertension: Qualifiers: Hypertension type: primary hypertension Qualified Code(s): I10 - Essential (primary) hypertension Code(s): I10 - Essential (primary) hypertension Status: Chronic Assessmen
--- NOTE | 2022-10-05 13:40 | PC.NURSE ---
[facility] called to set up home delivery of concentrator. Gasoline Service Attendant stated they would call nurse's station or patient to follow-up.
--- NOTE | 2022-10-05 14:52 | PC.NURSE ---
Patient educated on hygiene regimen. Patient wanting to take shower at home instead of hospital today. Patient instructed on use of prescription body wash and antibiotic ointment after shower.
[2022-10-07 01:47] LABS: Pneumococcal Antigen Urine Not Detected (Not Detected)
[2022-10-07 06:47] LABS: Legionella pneumophila Ag Ur Not Detected (Not Detected)
== END 2022-10-05 14:54 | disposition home or self-care (01) | DRG 720 ==
LOC: ANHED 21:35 → ANH2MED 23:03
PROVIDERS: Physician Assistant; Admitting Provider Internal Medicine; Emergency Provider Emergency Medicine; PCP Internal Medicine Cardiovascular Disease; Visit Provider Nurse Practitioner Family
DX: A41.9 Sepsis, unspecified organism (principal); J18.9 Pneumonia, unspecified organism; I11.0 Hypertensive heart disease with heart failure; I50.9 Heart failure, unspecified; B37.0 Candidal stomatitis; L03.115 Cellulitis of right lower limb; E66.2 Morbid (severe) obesity with alveolar hypoventilation; J45.909 Unspecified asthma, uncomplicated; F41.9 Anxiety disorder, unspecified; K58.9 Irritable bowel syndrome, unspecified; Z20.822 Contact with and (suspected) exposure to COVID-19; Z68.42 Body mass index [BMI] 45.0-49.9, adult; Z22.322 Carrier or suspected carrier of Methicillin resistant Staphylococcus aureus; Z90.49 Acquired absence of other specified parts of digestive tract; Z87.891 Personal history of nicotine dependence
CPT/HCPCS: 36415; 71046; 80048; 80053; 80202; 81001; 82274; 83036; 83605; 83690; 83735; 84145; 85025; 85610; 85730; 86140; 87040; 87081; 87449; 87636; 87899; 93922; 93970; 94640; 94667; 94668; 94762; 96361; 96365; 96366; 96367; 96375; 96376; 99285; A9270; G0378; G0379; J0456; J0696; J3370; J7030

== ENCOUNTER 2022-11-03 14:16 | Emergency (ER) | payer OTHER, SELFPAY ==
[2022-11-03 14:30] VITALS: BP 138/94; PULSE 88; RESP 16; TEMP 36.2; O2SAT 98
--- NOTE | 2022-11-03 18:22 | ED.GENADULT ---
HPI - General Adult General Chief complaint: Extremity Injury, Lower Stated complaint: BLE pain Time Seen by Provider: 11/03/22 18:09 Source: patient Mode of arrival: ambulatory Limitations: no limitations History of Present Illness HPI narrative: This is a 42-year-old female who presents to the ED with chief complaint of right lower extremity swelling for the past week. Patient reports that she was hospitalized about a month ago for cellulitis of the right leg and pneumonia. She feels that the cellulitis had initially improved as she had been discharged and has fully completed the 2-week course of doxycycline, however in the past week she started noticing some redness and some swelling to the right leg again. She states that overall the redness has decreased, however she has been concerned due to the slight increase in swelling. Denies any new wounds or bites. Denies chest pain, shortness of breath, cough, fevers, chills, nausea, vomiting. Related Data Home Medications Medication Instructions Recorded Confirmed albuterol sulfate 2.5 mg/3 mL 3 ml inhalation Q4H PRN Shortness 11/03/21 09/30/22 (0.083 %) solution for nebulization Of Breath mometasone-formoterol HFA 200 200 inh inhalation BID 11/03/21 09/30/22 mcg-5 mcg/actuation aerosol inhaler (Dulera) [id number] 1 tablet PO Q4-6H PRN Migraine 11/07/21 09/30/22 50 mg-325 mg-40 mg tablet Headache pantoprazole 40 mg tablet,delayed 40 mg PO BID 11/07/21 09/30/22 release buspirone 10 mg tablet 10 mg PO DAILY 09/30/22 09/30/22 diltiazem HCl 120 mg 120 mg PO DAILY 09/30/22 09/30/22 capsule,extended release 24 hr furosemide 20 mg tablet 40 mg PO DAILY 09/30/22 09/30/22 losartan 100 mg tablet 50 mg PO DAILY 09/30/22 09/30/22 Allergies Allergy/AdvReac Type Severity Reaction Status Date / Time artichoke Allergy Severe HIVES Verified 11/03/22 18:14 morphine Allergy Severe BURNING AT Verified 11/03/22 18:14 THE SITE NSAIDS (Non-Steroidal Allergy Severe ASTHMA/HIVE Verified 11/03/22 18:14 Anti-Inflamma S peanut Allergy Severe HIVES Verified 11/03/22 18:14 pineapple Allergy Severe Swelling Verified 11/03/22 18:14 of Lip/Tongue/Throat Sulfa (Sulfonamide Allergy Severe ASTHMA/HIVE Verified 11/03/22 18:14 Antibiotics) S tramadol Allergy Severe HIVES Verified 11/03/22 18:14 latex Allergy Intermediate Rash Verified 11/03/22 18:14 pomegranate Allergy Intermediate HIVES Verified 11/03/22 18:14 aspirin Allergy Mild Dyspnea / Verified 11/03/22 18:14 SOB blue dye Allergy Mild Unknown Verified 11/03/22 18:14 codeine Allergy Mild Dyspnea / Verified 11/03/22 18:14 SOB ibuprofen Allergy Mild Unknown Verified 11/03/22 18:14 peanut oil Allergy Mild Unknown Verified 11/03/22 18:14 Penicillins Allergy Mild Unknown Verified 11/03/22 18:14 strawberry Allergy Mild Swelling Verified 11/03/22 18:14 of Lip/Tongue/Throat beclomethasone [From Qvar] Allergy Unknown Verified 11/03/22 18:14 budesonide [From Symbicort] Allergy Unknown Verified 11/03/22 18:14 formoterol [From Symbicort] Allergy Unknown Verified 11/03/22 18:14 fabian Allergy Severe Rash Uncoded 04/10/22 22:01 BENINESE SAUSAGE Allergy Severe DIARRHEA/HI Uncoded 04/10/22 22:01 VES TILAPIA Allergy Severe SWOLLEN Uncoded 04/10/22 22:01 GLANDS Cueto Armendariz Allergy Intermediate SORE THROAT Uncoded 04/10/22 22:01 BLUEBERRIES Allergy Mild Unknown Uncoded 04/10/22 22:01 Review of Systems Review of Systems: CONSTITUTIONAL: Denies fever, chills, or sweats. EYES: Denies visual changes, redness, or discharge. ENT: Denies rhinorrhea, congestion, sore throat, or otalgia. CARDIOVASCULAR: Denies chest pain, palpitations, or edema. RESPIRATORY: Denies cough or dyspnea. GASTROINTESTINAL: Denies abdominal pain, nausea, vomiting, or diarrhea. GENITOURINARY: Denies dysuria or hematuria. SKIN: See HPI MUSCULOSKELETAL: See HPI NEUROLOGIC: Denies headache, numbness, dizziness, or weakn
[2022-11-03 18:39] LABS: Basophils Percent Auto 0.5 % (0.2-1.2); Eosinophils Absolute Auto 0.4 K/mm3 (0-0.3); Eosinophils Percent Auto 5.8 % (0-4.4); Hematocrit 36.6 % (37.0-47.0); Hemoglobin 11.5 g/dL (12.0-15.0); Immature Granulocyte Absolute 0.06 K/mm3 (0.00-0.031); Immature Granulocyte Percent A 0.8 % (0-0.5); Lymphocytes Absolute Auto 2.02 K/mm3 (0.9-3.2); Lymphocytes Percent Auto 27.4 % (18.3-44.2); Mean Corpuscular HGB Conc 31.4 g/dl (32-36); Mean Corpuscular Hemoglobin 27.3 pg (26-34); Mean Corpuscular Volume 86.9 fl (80-100); Mean Platelet Volume 9.6 fl (7.4-10.4); Monocytes Absolute Auto 0.5 K/mm3 (0.1-0.6); Monocytes Percent Auto 6.8 % (2.6-8.5); Neutrophils Absolute Auto 4.3 K/mm3 (1.3-6.7); Neutrophils Percent Auto 58.7 % (45.5-73.1); Platelet Count Result 251 k/mm3 (150-375); Red Blood Count 4.21 M/mm3 (4.2-5.4); Red Cell Distribution Width 16.5 % (11.5-14.5); White Blood Count 7.4 K/mm3 (4.5-10.0)
[2022-11-03 18:54] LABS: D Dimer 0.75 ug/mL (<0.48)
[2022-11-03 18:57] LABS: Alanine Aminotransferase 17 U/L (6-35); Albumin Level 3.9 g/dL (3.5-5.1); Alkaline Phosphatase 89 U/L (38-126); Anion Gap 4 mmol/L (8-16); Aspartate Amino Transferase 20 U/L (14-36); Bilirubin,Total 0.3 mg/dL (0.2-1.3); Blood Urea Nitrogen 11 mg/dL (7-17); Calcium 8.9 mg/dL (8.4-10.2); Carbon Dioxide 32 mmol/L (22-30); Chloride 101 mmol/L (98-107); Estimated CRCL calculation 101 ml/min; Estimated Glomerular Filt Rate > 60; Glucose 94 mg/dL (65-110); Potassium 4.2 mmol/L (3.4-5.0); Sodium 137 mmol/L (137-145)
[2022-11-03] MEDS: ENOXAPARIN 30 MG/0.3 ML SYRINGE SUB-Q (19:46)
[2022-11-03] MEDS: ENOXAPARIN 100 MG/ML SYRINGE SUB-Q (19:47)
== END 2022-11-03 19:53 | disposition home or self-care (01) ==
PROVIDERS: Emergency Provider Physician Assistant; PCP Internal Medicine Cardiovascular Disease
DX: R22.43 Localized swelling, mass and lump, lower limb, bilateral (principal); R79.1 Abnormal coagulation profile; F41.9 Anxiety disorder, unspecified; J45.909 Unspecified asthma, uncomplicated; F32.A Depression, unspecified; E78.5 Hyperlipidemia, unspecified; I10 Essential (primary) hypertension; G47.30 Sleep apnea, unspecified
CPT/HCPCS: 36415; 80053; 85025; 85380; 96372; 99284; J1650

== ENCOUNTER 2022-11-04 07:05 | Outpatient (CLI) | payer OTHER, SELFPAY ==
--- NOTE | ~2022-11-04 | US_ITS ---
Duplex Sonography of the bilateral lower extremities: Indication: Other specified soft tissue disorder, swelling Sagittal and transverse B-mode images as well as color-flow imaging were performed on the right and l eft femoral and popliteal veins. B-mode examination was done without and with compression in the tra nsverse plane. There is good visualization of the bilateral common femoral, proximal profunda femora l, superficial femoral, greater saphenous, and popliteal veins. Normal flow was seen on color-flow im aging. Normal compressibility was demonstrated. Bilateral posterior tibial veins are also patent. Pe roneal veins are poorly imaged. Impression: No evidence of deep vein thrombosis involving the visualized venous structures in bilater al lower extremities. Reviewed, dictated and finalized at location M. Impression: No evidence of deep vein thrombosis involving the visualized venous structures in bilateral lower extremities.
== END 2022-11-04 07:06 | disposition home or self-care (01) ==
PROVIDERS: PCP Internal Medicine Cardiovascular Disease; Visit Provider Physician Assistant
DX: M79.89 Other specified soft tissue disorders (principal)
CPT/HCPCS: 93970

== ENCOUNTER 2023-04-29 11:23 | Emergency (ER) | payer OTHER, SELFPAY ==
--- NOTE | ~2023-04-29 | XR_ITS ---
EXAMINATION: XR chest 2V DATE: 04/29/2023 11:49 INDICATION: Chest pain TECHNIQUE: PA and lateral views of the chest are obtained. COMPARISON: 09/30/2022 FINDINGS: The lungs are free of acute opacities. No pleural effusion or pneumothorax. The cardiomedia stinal silhouette is normal. There is moderate thoracic spondylosis. Surgical clips in the right uppe r quadrant are likely from prior cholecystectomy. IMPRESSION: 1. No acute cardiopulmonary abnormality. Reviewed, dictated and finalized at location L. TY DEPOSIT SUPERVISOR
--- NOTE | 2023-04-29 11:26 | ECG_ITS ---
Measurements Intervals [place] Rate: 96 P: 37 IL: 130 QRS: 15 QRSD: 77 T: 47 QT: 339 QTc: 429 Interpretive Statements SINUS RHYTHM LOW QRS VOLTAGE IN PRECORDIAL LEADS [QRS DEFLECTION < 1.0 mV IN CHEST LEADS] ABNORMAL ECG COMPARED TO ECG 04/11/2022 01:00:21 NO SIGNIFICANT CHANGES Electronically Signed On 04-30-2023 10:27:08 MID LEVEL PROVIDER by Yousuf Mast M.D.
[2023-04-29 11:45] VITALS: BP 125/71; PULSE 95; RESP 16; TEMP 36.6; O2SAT 95
[2023-04-29 13:15] VITALS: O2SAT 98
[2023-04-29 13:20] LABS: Basophils Absolute Auto 0.1 K/mm3 (0.0-0.1); Basophils Percent Auto 0.6 % (0.2-1.2); Eosinophils Absolute Auto 0.8 K/mm3 (0-0.3); Eosinophils Percent Auto 9.7 % (0-4.4); Hematocrit 40.2 % (37.0-47.0); Hemoglobin 12.6 g/dL (12.0-15.0); Immature Granulocyte Absolute 0.04 K/mm3 (0.00-0.031); Immature Granulocyte Percent A 0.5 % (0-0.5); Lymphocytes Absolute Auto 2.21 K/mm3 (0.9-3.2); Lymphocytes Percent Auto 26.6 % (18.3-44.2); Mean Corpuscular HGB Conc 31.3 g/dl (32-36); Mean Corpuscular Hemoglobin 27.2 pg (26-34); Mean Corpuscular Volume 86.8 fl (80-100); Mean Platelet Volume 10.1 fl (7.4-10.4); Monocytes Absolute Auto 0.6 K/mm3 (0.1-0.6); Monocytes Percent Auto 7.6 % (2.6-8.5); Neutrophils Absolute Auto 4.6 K/mm3 (1.3-6.7); Platelet Count Result 313 k/mm3 (150-375); Red Blood Count 4.63 M/mm3 (4.2-5.4); Red Cell Distribution Width 16.3 % (11.5-14.5); White Blood Count 8.3 K/mm3 (4.5-10.0)
[2023-04-29 13:30] LABS: Alanine Aminotransferase 16 U/L (6-35); Albumin Level 4.2 g/dL (3.5-5.1); Alkaline Phosphatase 80 U/L (38-126); Anion Gap 8 mmol/L (8-16); Aspartate Amino Transferase 21 U/L (14-36); Bilirubin,Total 0.4 mg/dL (0.2-1.3); Blood Urea Nitrogen 16 mg/dL (7-17); Calcium 9.3 mg/dL (8.4-10.2); Carbon Dioxide 29 mmol/L (22-30); Chloride 102 mmol/L (98-107); Estimated CRCL calculation 108 ml/min; Estimated Glomerular Filt Rate > 60; Glucose 108 mg/dL (65-110); Lipase 40 U/L (23-300); Potassium 3.9 mmol/L (3.4-5.0); Sodium 139 mmol/L (137-145)
[2023-04-29 13:42] LABS: Troponin I < 0.012 ng/mL (0.000-0.034)
[2023-04-29 13:43] LABS: Prothrombin Time 13.4 Seconds (11.1-14.7)
[2023-04-29 13:44] LABS: Partial Thromboplastin Time 27.8 SECONDS (22.3-36.8)
--- NOTE | 2023-04-29 14:38 | ECG_ITS ---
Measurements Intervals [place] Rate: 88 P: 42 KS: 145 QRS: 21 QRSD: 82 T: 45 QT: 357 QTc: 433 Interpretive Statements SINUS RHYTHM LOW QRS VOLTAGE IN PRECORDIAL LEADS [QRS DEFLECTION < 1.0 mV IN CHEST LEADS] ABNORMAL ECG COMPARED TO ECG 04/29/2023 11:36:03 NO SIGNIFICANT CHANGES Electronically Signed On 04-30-2023 10:32:07 REINSTATEMENT CLERK by Yousuf Mast M.D.
[2023-04-29 15:04] VITALS: BP 115/62; PULSE 86; RESP 21; O2SAT 99
[2023-04-29 15:13] LABS: Troponin I < 0.012 ng/mL (0.000-0.034)
--- NOTE | 2023-04-29 15:41 | ED.CHESTPAIN ---
HPI - Chest Pain General Chief Complaint: Chest Pain Stated Complaint: multiple complaints Time Seen by Provider: 04/29/23 14:04 History of Present Illness HPI narrative: Patient is a 42-year-old female with a history of asthma presenting with chest pain. Patient states that for the last several days she has had intermittent left-sided chest pain. States that she feels like her asthma has been worse lately and has not been responding to her inhaler. States that the pain continued today so she came in for evaluation. States that sometimes she feels lightheaded. Denies shortness of breath. No leg swelling. No fevers, cough, abdominal pain. Complains of chronic nausea and. No further complaints. Related Data Home Medications Medication Instructions Recorded Confirmed albuterol sulfate 2.5 mg/3 mL 3 ml inhalation Q4H PRN Shortness 11/03/21 02/25/23 (0.083 %) solution for nebulization Of Breath mometasone-formoterol HFA 200 200 inh inhalation BID 11/03/21 02/25/23 mcg-5 mcg/actuation aerosol inhaler (Dulera) [id number]-[id number] 1 tablet PO Q4-6H PRN Migraine 11/07/21 02/25/23 50 mg-325 mg-40 mg tablet Headache pantoprazole 40 mg tablet,delayed 40 mg PO BID 11/07/21 02/25/23 release buspirone 10 mg tablet 10 mg PO DAILY 09/30/22 02/25/23 diltiazem HCl 120 mg 120 mg PO DAILY 09/30/22 02/25/23 capsule,extended release 24 hr furosemide 20 mg tablet 40 mg PO DAILY 09/30/22 02/25/23 losartan 100 mg tablet 50 mg PO DAILY 09/30/22 02/25/23 diphenhydramine HCl 25 mg capsule 25 mg PO QHS PRN 01/15/23 02/25/23 (Banophen) gabapentin 300 mg capsule 300 mg PO DAILY 01/15/23 02/25/23 lidocaine 5 % topical patch 1 patch topical DAILY 01/15/23 02/25/23 nortriptyline 25 mg capsule 25 mg PO QHS 01/15/23 02/25/23 Allergies Allergy/AdvReac Type Severity Reaction Status Date / Time artichoke Allergy Severe HIVES Verified 02/25/23 09:11 morphine Allergy Severe BURNING AT Verified 02/25/23 09:11 THE SITE NSAIDS (Non-Steroidal Allergy Severe ASTHMA/HIVE Verified 02/25/23 09:11 Anti-Inflamma S peanut Allergy Severe HIVES Verified 02/25/23 09:11 pineapple Allergy Severe Swelling Verified 02/25/23 09:11 of Lip/Tongue/Throat Sulfa (Sulfonamide Allergy Severe ASTHMA/HIVE Verified 02/25/23 09:11 Antibiotics) S tramadol Allergy Severe HIVES Verified 02/25/23 09:11 latex Allergy Intermediate Rash Verified 02/25/23 09:11 pomegranate Allergy Intermediate HIVES Verified 02/25/23 09:11 aspirin Allergy Mild Dyspnea / Verified 02/25/23 09:11 SOB blue dye Allergy Mild Unknown Verified 02/25/23 09:11 codeine Allergy Mild Dyspnea / Verified 02/25/23 09:11 SOB ibuprofen Allergy Mild Unknown Verified 02/25/23 09:11 peanut oil Allergy Mild Unknown Verified 02/25/23 09:11 Penicillins Allergy Mild Unknown Verified 02/25/23 09:11 strawberry Allergy Mild Swelling Verified 02/25/23 09:11 of Lip/Tongue/Throat beclomethasone [From Qvar] Allergy Unknown Verified 02/25/23 09:11 budesonide [From Symbicort] Allergy Unknown Verified 02/25/23 09:11 formoterol [From Symbicort] Allergy Unknown Verified 02/25/23 09:11 fabian Allergy Severe Rash Uncoded 02/25/23 09:11 PERSIAN SAUSAGE Allergy Severe DIARRHEA/HI Uncoded 02/25/23 09:11 VES TILAPIA Allergy Severe SWOLLEN Uncoded 02/25/23 09:11 GLANDS Cueto Armendariz Allergy Intermediate SORE THROAT Uncoded 02/25/23 09:11 BLUEBERRIES Allergy Mild Unknown Uncoded 02/25/23 09:11 Review of Systems Review of Systems: All systems reviewed & are unremarkable except as noted in HPI and below PMFSH Past Medical History Medical History Anxiety Asthma (Unknown) Carpal tunnel syndrome Depression Gastro-esophageal reflux History of esophageal dilatation Hypercholesterolemia Hypertension IBS (irritable bowel syndrome) Morbid obesity Neuropathy involving both lower extremities Nexplanon insertion inse
[2023-04-29 15:48] VITALS: PULSE 97; RESP 20
[2023-04-29] MEDS: ALBUTEROL SULFATE NEB 2.5 MG/3 ML INH 5 MG INHALATION (15:48)
[2023-04-29] MEDS: IPRATROPIUM BR 0.02% INH SOLN 0.5 MG/2.5 ML VIAL INHALATION (15:48)
[2023-04-29] MEDS: SODIUM CHLORIDE 0.9% IV 1,000 ML 999 ML IV CONT (16:04)
[2023-04-29] MEDS: ACETAMINOPHEN 500 MG TABLET 1000 MG PO (16:05)
[2023-04-29 16:10] VITALS: PULSE 87; RESP 16
[2023-04-29 16:49] LABS: Influenza A QL RT-PCR Negative (Negative); Influenza B QL RT-PCR Negative (Negative); RSV RNA, RT-PCR Negative (Negative); SARS-CoV-2 RNA PCR Negative (Negative)
--- NOTE | 2023-04-29 18:15 | PC.NURSE ---
confirmed DC EKG/6 hr trop
== END 2023-04-29 18:26 | disposition home or self-care (01) ==
PROVIDERS: Emergency Medicine; Emergency Provider Emergency Medicine; PCP Physician Assistant
DX: J45.901 Unspecified asthma with (acute) exacerbation (principal); R07.89 Other chest pain; Z20.822 Contact with and (suspected) exposure to COVID-19; F41.9 Anxiety disorder, unspecified; F32.A Depression, unspecified; K21.9 Gastro-esophageal reflux disease without esophagitis; G47.30 Sleep apnea, unspecified
CPT/HCPCS: 36415; 71046; 80053; 83690; 84484; 85025; 85610; 85730; 87637; 93005; 94640; 96360; 99284; A9270; J7030

== ENCOUNTER 2023-07-10 19:17 | Observation (INO) | payer OTHER, SELFPAY ==
--- NOTE | ~2023-07-10 | XR_ITS ---
EXAMINATION: XR chest 2V DATE: 07/10/2023 23:15 INDICATION: Cough. Upper respiratory infection. TECHNIQUE: Frontal and lateral views of the chest were obtained. COMPARISON: Chest 2 views 04/29/2023 FINDINGS: There is no pneumonia, pleural effusion, or pneumothorax. The heart size is normal. Surgica l clips in the right upper quadrant are likely from cholecystectomy. There is mild chronic anterior w edging of multiple vertebral bodies. IMPRESSION: 1. No acute cardiopulmonary disease. Reviewed, dictated and finalized at location E. OPSYCHOLOGY MEDICAL CONSULTANT
[2023-07-10 19:29] VITALS: BP 139/88; PULSE 90; RESP 20; TEMP 35.6; O2SAT 94
[2023-07-10 19:53] LABS: Basophils Percent Auto 0.2 % (0.2-1.2); Eosinophils Absolute Auto 0.1 K/mm3 (0-0.3); Eosinophils Percent Auto 2.9 % (0-4.4); Hematocrit 40.8 % (37.0-47.0); Hemoglobin 12.6 g/dL (12.0-15.0); Immature Granulocyte Absolute 0.01 K/mm3 (0.00-0.031); Immature Granulocyte Percent A 0.2 % (0-0.5); Lymphocytes Absolute Auto 1.14 K/mm3 (0.9-3.2); Lymphocytes Percent Auto 27.7 % (18.3-44.2); Mean Corpuscular HGB Conc 30.9 g/dl (32-36); Mean Corpuscular Hemoglobin 26.9 pg (26-34); Mean Platelet Volume 10.2 fl (7.4-10.4); Monocytes Absolute Auto 0.4 K/mm3 (0.1-0.6); Neutrophils Absolute Auto 2.4 K/mm3 (1.3-6.7); Platelet Count Result 194 k/mm3 (150-375); Red Blood Count 4.69 M/mm3 (4.2-5.4); Red Cell Distribution Width 16.2 % (11.5-14.5); White Blood Count 4.1 K/mm3 (4.5-10.0)
[2023-07-10 20:04] LABS: Alanine Aminotransferase 25 U/L (6-35); Albumin Level 4.2 g/dL (3.5-5.1); Alkaline Phosphatase 102 U/L (38-126); Anion Gap 10 mmol/L (8-16); Aspartate Amino Transferase 35 U/L (14-36); Bilirubin,Total 0.5 mg/dL (0.2-1.3); Blood Urea Nitrogen 22 mg/dL (7-17); Calcium 8.7 mg/dL (8.4-10.2); Carbon Dioxide 27 mmol/L (22-30); Chloride 100 mmol/L (98-107); Estimated CRCL calculation 104 ml/min; Estimated Glomerular Filt Rate > 60; Glucose 119 mg/dL (65-110); Lipase 40 U/L (23-300); Potassium 3.6 mmol/L (3.4-5.0); Sodium 137 mmol/L (137-145)
[2023-07-10 20:35] LABS: Influenza A QL RT-PCR Negative (Negative); Influenza B QL RT-PCR Positive (Negative); RSV RNA, RT-PCR Negative (Negative); SARS-CoV-2 RNA PCR Negative (Negative)
[2023-07-10] MEDS: ONDANSETRON INJ 4 MG/2 ML VIAL IV PUSH (23:33)
[2023-07-10 23:36] VITALS: O2SAT 93
[2023-07-10 23:38] VITALS: BP 131/75; PULSE 89; RESP 15; O2SAT 93
[2023-07-10 23:48] VITALS: O2SAT 96
[2023-07-11] VITALS (25 sets, daily range): BP systolic 105–131; BP diastolic 52–90; PULSE 68–115; RESP 11–20; TEMP 36.2–36.8; O2SAT 91–96; BMI 47.9
--- NOTE | 2023-07-11 | ECHO_ITS ---
Patient Info Name: Octavia Smith Age: 43 years : 1980 Gender: Female Ht: 65 in Wt: 316 lbs BSA: 2.65 m2 HR: 75 bpm BP: 109 / 53 mmHg Heart Rhythm: Sinus Rhythm Technical Quality: Fair Exam Date: 07/11/2023 2:35 PM Exam Location: Echo Lab Patient Status: Outpatient Admit Date: 07/11/2023 Staff Ordering Physician: Fe Lowe Forest[employer] Faculty Member: Joyce Sesay RDCS Attending Provider: Fe Lowe Referring Physician: Mynor SALCEDO; Exam Type: CA echo dop color flow w con Study Info Indications - peripheral edema R06.09 - Other forms of dyspnea Complete two-dimensional, color flow and Doppler transthoracic echocardiogram is performed with contrast to opacify the left ventricle and to improve the deliniation of the left ventricle endocardial borders. Contrast/Agitated Saline Contrast/Ag. Saline: Definity Amount: 2.00 ml Administered By: Joyce eSsay RDCS Existing IV Access: Yes IV Access Condition: patent with no signs of infiltration Summary 1. Definity contrast administered improved wall motion interpretation. 2. Left ventricular chamber dimension is normal. 3. Left ventricular systolic function is normal, estimated at 65-70%. 4. The left ventricular diastolic function is abnormal. 5. E/e' 11 is mildly elevated. 6. No pulmonary hypertension, estimated pulmonary arterial systolic pressure is 22 mmHg. Left Ventricle E/e' 11 is mildly elevated. Definity contrast administered improved wall motion interpretation. Left ventricular chamber dimension is normal. Left ventricular systolic function is normal, estimated at 65-70%. The left ventricular diastolic function is abnormal. Right Ventricle Right ventricular systolic function is normal and with normal TAPSE 2.2 cm. Right ventricular chamber dimension is normal. Left Atria Left atrial chamber dimension is normal. Right Atria Right atrial chamber dimension is normal. Aortic Valve The aortic valve is trileaflet. There is no aortic valve stenosis. There is no aortic valve regurgitation. Pulmonic Valve There is no pulmonic regurgitation. Mitral Valve There is no mitral valve stenosis. There is no mitral valve regurgitation. Tricuspid Valve There is no tricuspid valve regurgitation. No pulmonary hypertension, estimated pulmonary arterial systolic pressure is 22 mmHg. Pericardium/Pleural There is no pericardial effusion. Inferior Vena Cava Normal inferior vena cava with >50% collapse upon inspiration consistent with normal right atrial pressure, 5 mmHg. Aorta The aortic root size at the sinus of Valsalva is normal. Left Ventricular Outflow Tract Name Value Normal LVOT Doppler LVOT Peak Gradient 4 mmHg LVOT Mean Gradient 2 mmHg LVOT VTI 16.74 cm LVOT VTI/AV VTI Ratio 0.56 Pulmonic Valve Name Value Normal RVOT Doppler RVOT Peak Gradient 4 mmHg PV Doppler
--- NOTE | 2023-07-11 00:09 | ECG_ITS ---
Measurements Intervals [place] Rate: 79 P: 17 NE: 130 QRS: 17 QRSD: 75 T: 23 QT: 388 QTc: 445 Interpretive Statements SINUS RHYTHM NORMAL ELECTROCARDIOGRAM COMPARED TO ECG 04/29/2023 14:38:19 NO SIGNIFICANT CHANGES Electronically Signed On 07-11-2023 12:36:39 MATERIAL COMBINER by Paul Contreras M.D.
--- NOTE | 2023-07-11 00:20 | ED.URI ---
HPI - URI/Sore Throat General Chief Complaint: Upper Respiratory Infection <Carla Robles PA-C - Last Filed: 07/11/23 02:26> Stated Complaint: concerned for pneumonia <NEGRA Bolton Last Filed: 07/11/23 02:26> Time Seen by Provider: 07/10/23 22:56 <NEGRA Bolton Last Filed: 07/11/23 02:26> Source: patient <NEGRA Bolton Last Filed: 07/11/23 02:26> Mode of arrival: ambulatory <NEGRA Bolton Last Filed: 07/11/23 02:26> Limitations: no limitations <NEGRA Bolton Last Filed: 07/11/23 02:26> History of Present Illness HPI Narrative: Patient is a 43-year-old female, with pmh of asthma, who presents the ED with URI symptoms. Patient reports she has been sick with persistent URI symptoms since the middle of May. She has been seen at an urgent care several times and been on a few different courses of antibiotics (azithromycin, doxycycline) without improvement. States symptoms have become worse over the last 2 weeks. She does report this week, she was exposed to someone with known influenza. She endorses cough, congestion, rhinorrhea, nausea, vomiting, body aches, rib pain with coughing, shortness of breath. Denies chest pain, known fevers. <NEGRA Bolton Last Filed: 07/11/23 02:26> Related Data Home Medications: Home Medications Medication Instructions Recorded Confirmed albuterol sulfate 2.5 mg/3 mL 3 ml inhalation Q4H PRN Shortness 11/03/21 07/11/23 (0.083 %) solution for nebulization Of Breath mometasone-formoterol HFA 200 200 inh inhalation BID 11/03/21 07/11/23 mcg-5 mcg/actuation aerosol inhaler (Dulera) [id number]-[id number]-[id number] 1 tablet PO Q4-6H PRN Migraine 11/07/21 07/11/23 50 mg-325 mg-40 mg tablet Headache pantoprazole 40 mg tablet,delayed 40 mg PO BID 11/07/21 07/11/23 release buspirone 10 mg tablet 10 mg PO DAILY 09/30/22 07/11/23 furosemide 20 mg tablet 40 mg PO DAILY 09/30/22 07/11/23 losartan 100 mg tablet 50 mg PO DAILY 09/30/22 07/11/23 gabapentin 300 mg capsule 300 mg PO DAILY 01/15/23 07/11/23 <Carla Robles PA-C - Last Filed: 07/11/23 02:26> Allergies/Adverse Reactions: Allergies Allergy/AdvReac Type Severity Reaction Status Date / Time artichoke Allergy Severe HIVES Verified 07/11/23 07:43 morphine Allergy Severe BURNING AT Verified 07/11/23 07:43 THE SITE NSAIDS (Non-Steroidal Allergy Severe ASTHMA/HIVE Verified 07/11/23 07:43 Anti-Inflamma S peanut Allergy Severe HIVES Verified 07/11/23 07:43 pineapple Allergy Severe Swelling Verified 07/11/23 07:43 of Lip/Tongue/Throat Sulfa (Sulfonamide Allergy Severe ASTHMA/HIVE Verified 07/11/23 07:43 Antibiotics) S tramadol Allergy Severe HIVES Verified 07/11/23 07:43 latex Allergy Intermediate Rash Verified 07/11/23 07:43 pomegranate Allergy Intermediate HIVES Verified 07/11/23 07:43 aspirin Allergy Mild Dyspnea / Verified 07/11/23 07:43 SOB blue dye Allergy Mild Unknown Verified 07/11/23 07:43 codeine Allergy Mild Dyspnea / Verified 07/11/23 07:43 SOB ibuprofen Allergy Mild Unknown Verified 07/11/23 07:43 peanut oil Allergy Mild Unknown Verified 07/11/23 07:43 Penicillins Allergy Mild Unknown Verified 07/11/23 07:43 strawberry Allergy Mild Swelling Verified 07/11/23 07:43 of Lip/Tongue/Throat beclomethasone [From Qvar] Allergy Unknown Verified 07/11/23 07:43 budesonide [From Symbicort] Allergy Unknown Verified 07/11/23 07:43 cephalexin [From Keflex] Allergy Rash Verified 07/11/23 07:43 formoterol [From Symbicort] Allergy Unknown Verified 07/11/23 07:43 fabian Allergy Severe Rash Uncoded 07/11/23 07:43 MOHAWK SAUSAGE Allergy Severe DIARRHEA/HI Uncoded 07/11/23 07:43 VES TILAPIA Allergy Severe SWOLLEN Uncoded 07/11/23 07:43 GLANDS Cueto Armendariz Allergy Intermediate SORE THROAT Uncoded 07/11/23 07:43 BLUEBERRIES Allergy Mild Unknown Un
[2023-07-11 01:20] LABS: NT Pro B Type Natriuretic Pept < 20 pg/mL (19.9-100)
[2023-07-11 01:22] LABS: Troponin I < 0.012 ng/mL (0.000-0.034)
[2023-07-11] MEDS: ONDANSETRON INJ 4 MG/2 ML VIAL IV PUSH ×4 (02:59→20:18)
[2023-07-11] MEDS: ACETAMINOPHEN/BUTALBITAL/CAFFEINE 325-50-40 MG TABLET (FIORICET) 1 TAB PO ×4 (02:59→20:17)
[2023-07-11 03:14] LABS: Appearance Urine Cloudy (Clear); Bacteria Urine None Seen /hpf; Bilirubin Urine Negative (Negative); Blood Urine Negative (Negative); Color Urine Dark Yellow (Yellow); Glucose Urine UA Negative (Negative); Ketones Urine Negative (Negative); Leukocyte Esterase Ur Negative LEU/UL (Negative); Nitrate Urine Negative (Negative); Non Pathogenic Casts 0-2; Protein Urine 1+ mg/dL (Negative); RBC Urine 0-2 /hpf (0-2); Specific Grav Ur 1.028 (1.001-1.035); Squamous Epithelial Cell Urine Occasional /hpf (Few); Urobilinogen Urine 0.2 mg/dL (<2.0); WBC Urine 0-5 /hpf; pH Urine 5.5 (5.0-9.0)
[2023-07-11 03:19] LABS: Add Urine Microscopic? YES
[2023-07-11] MEDS: predniSONE 20 MG TABLET 60 MG PO (08:30)
[2023-07-11] MEDS: LEVALBUTEROL NEB 1.25 MG/3 ML 0.63 MG INHALATION ×3 (08:40→20:27)
[2023-07-11] MEDS: IPRATROPIUM BR 0.02% INH SOLN 0.5 MG/2.5 ML VIAL INHALATION ×3 (08:43→20:27)
--- NOTE | 2023-07-11 08:44 | PM.IMHP ---
H&P: HPI History of Present Illness Date/Time: 07/11/23 0822 Chief Complaint: URI Symptoms, concerned for PNA. Narrative: This morbidly obese, 43 year old female pt with significant PMH of Anxiety, Asthma, COPD with oxygen requirement and admittedly non-compliant, Migraines, Carpal tunnel syndrome, Depression, GERD, HLD, HTN, IBS, Morbid obesity, Neuropathy, NELSON w/CPAP, Heart Failure and a former smoker presented to the ER last evening with complaints of having a concern for PNA. She endorsed that she has been sick for most of May and all of June to date. She has been seen multiple times and has been treated with multiple rounds of different abx and also steroids without any improvement. Her symptoms have reportedly persisted and worsened as of recent, although she told the ER staff over the past two weeks, she cannot give me at time frame but admits she was exposed to someone in her family with Influenza. Her symptoms consist of N/V outside of her normal chronic degree of nausea according to the pt, increased fatigue with chills, productive cough of green sputum, and dyspnea. Workup was performed in the ER that was significant for labs of WBC's = 4.1, BUN of 22, and Glucose of 119. CMP was unremarkable, Trop and BNP were normal, but she tested positive for Influenza B. CXR showed no acute cardiopulmonary disease and her EKG showed NSR 79 bpm without any ischemic changes. While in the ER, the pt's oxygenation did drop to an oxygen saturation of 84% on room air, thus requiring supplemental oxygen. When asked about her home oxygen she states she thinks she is supposed to wear it all the time, but she actually doesn't know. 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 She is therefore being admitted to the hospitalist service at this time for further evaluation and management as well as determination of the necessary degree of support that pt will require for her hypoxia. Review of Systems Review of Systems: All systems reviewed & are unremarkable except as noted in HPI and below PMFSH Past Medical History Medical History (Updated 07/11/23 @ 09:30 by Fe Lowe, CRYS-Mark) Acute hypoxic respiratory failure Anxiety Asthma (Unknown) Asthma Carpal tunnel syndrome COPD (chronic obstructive pulmonary disease) Depression Gastro-esophageal reflux GERD (gastroesophageal reflux disease) Heart failure History of esophageal dilatation Hypercholesterolemia Hypertension IBS (irritable bowel syndrome) IBS (irritable bowel syndrome) Migraine Morbid obesity Neuropathy involving both lower extremities Nexplanon insertion insertion - 01/17/2020 Noncompliance NELSON (obstructive sleep apnea) Surgical History Surgical History History of section History of cholecystectomy Family History Family History Mother Hypertension Father Hypertension Asthma Social History Social History Social History: Ms. Smith lives with her mother. She designates her mother, Nannette, as her surrogate decision maker. She would like to be a full code. Years smoked: 25 Smoking status: Former smoker Tobacco type: cigarettes Alcohol intake: former Alcohol use details: No alcohol in >6 months Substance use: never Substance use type: does not use Lack of Transportation: No Lack of Food: Never True Current Housing: I Have Housing Concerned About Future Housing: No Difficulty Paying Gas/Electric Bills: No Difficulty Paying for Meds: No Currently Unemployed: No Education: High School Diploma/GED Difficulty w/ Childcare or Family Care: No Living arrangements: with family Occupation/Education: unemployed Additional occupation/education comments: [employer] Gender identity (if
[2023-07-11 08:53] LABS: Eosinophils Absolute Auto 0.1 K/mm3 (0-0.3); Eosinophils Percent Auto 1.6 % (0-4.4); Hematocrit 39.8 % (37.0-47.0); Hemoglobin 12.4 g/dL (12.0-15.0); Immature Granulocyte Absolute 0.01 K/mm3 (0.00-0.031); Immature Granulocyte Percent A 0.3 % (0-0.5); Lymphocytes Absolute Auto 1.58 K/mm3 (0.9-3.2); Lymphocytes Percent Auto 50.2 % (18.3-44.2); Mean Corpuscular HGB Conc 31.2 g/dl (32-36); Mean Corpuscular Hemoglobin 27.1 pg (26-34); Mean Corpuscular Volume 86.9 fl (80-100); Mean Platelet Volume 10.4 fl (7.4-10.4); Monocytes Absolute Auto 0.4 K/mm3 (0.1-0.6); Monocytes Percent Auto 11.4 % (2.6-8.5); Neutrophils Absolute Auto 1.2 K/mm3 (1.3-6.7); Neutrophils Percent Auto 36.5 % (45.5-73.1); Platelet Count Result 192 k/mm3 (150-375); Red Blood Count 4.58 M/mm3 (4.2-5.4); Red Cell Distribution Width 16.3 % (11.5-14.5); White Blood Count 3.2 K/mm3 (4.5-10.0)
[2023-07-11 08:58] LABS: Alanine Aminotransferase 26 U/L (6-35); Alkaline Phosphatase 95 U/L (38-126); Anion Gap 8 mmol/L (8-16); Aspartate Amino Transferase 40 U/L (14-36); Bilirubin,Total 0.5 mg/dL (0.2-1.3); Blood Urea Nitrogen 22 mg/dL (7-17); Calcium 8.6 mg/dL (8.4-10.2); Carbon Dioxide 30 mmol/L (22-30); Chloride 99 mmol/L (98-107); Estimated CRCL calculation 117 ml/min; Estimated Glomerular Filt Rate > 60; Glucose 111 mg/dL (65-110); Potassium 3.5 mmol/L (3.4-5.0); Sodium 137 mmol/L (137-145)
[2023-07-11] MEDS: PANTOPRAZOLE 40 MG TABLET PO ×2 (10:20→17:48)
[2023-07-11] MEDS: GABAPENTIN 300 MG CAPSULE PO (10:20)
[2023-07-11] MEDS: BENZONATATE 100 MG CAPSULE 200 MG PO ×3 (10:20→17:48)
[2023-07-11] MEDS: LOSARTAN POTASSIUM 50 MG TABLET PO (10:20)
[2023-07-11] MEDS: busPIRone HCL 10 MG TABLET PO (10:20)
[2023-07-11] MEDS: FUROSEMIDE 40 MG TABLET PO (10:20)
[2023-07-11] MEDS: OSELTAMIVIR PHOSPHATE 75 MG CAPSULE PO ×2 (10:20→20:05)
--- NOTE | 2023-07-11 10:52 | PC.NURSE ---
pt refusing Lovenox at this time
--- NOTE | 2023-07-11 11:19 | PC.NURSE ---
attempted to take patient off of O2. within half hour pt dropped to 79%. Pt placed back on NC at this time
--- NOTE | 2023-07-11 12:02 | PC.NURSE ---
offered lunch to patient. she declined
[2023-07-11] MEDS: methylPREDNISolone SOD SUCC 40 MG VIAL IV PUSH (13:57)
[2023-07-11] MEDS: PERFLUTREN LIPID MICROSPHERES 1.5 ML VIAL DILUTED TO 10 ML TOTAL VOLUME IV PUSH (14:58)
--- NOTE | 2023-07-11 15:22 | IVDEFINITY ---
Prior to administration of IV Definity the patient was educated on the risks and benefits of the imaging enhancing agent including potential adverse side effects. The patient verbalized understanding. Allergies were verified. No exclusion criteria were identified and at least one of the following inclusion criteria were met: 1) physician request, 2) patient technically difficult to image (per the [place] [employer]chocardi[employer] guidelines of two or more segments not discernable within the apical view), or 3) questionable left ventricular function. ?
--- NOTE | 2023-07-11 16:29 | PC.NURSE ---
This patient, Octavia Smith, was admitted to 2 Medical Room 240-01. Patient/family oriented to hospital policies and general routines including ID bracelet, bed and alarms, visiting hours, pain management, procedures, bathroom and other care routines, personal items, smoking policy, room service/diet, and visiting hours. Information on how to activate the Rapid Response Team has been discussed. Patient/Family are encouraged to report perceived risks to care and to ask questions if they do not understand what they are told or what they should do.
[2023-07-11] MEDS: FLUTICASONE/SALMETEROL 230-21 MCG INHALER 1 PUFF 2 PUFF INHALATION (20:33)
[2023-07-12] VITALS (16 sets, daily range): BP systolic 103–128; BP diastolic 51–68; PULSE 58–92; RESP 16–20; TEMP 36.5–36.9; O2SAT 66–99
[2023-07-12] MEDS: IPRATROPIUM BR 0.02% INH SOLN 0.5 MG/2.5 ML VIAL INHALATION ×2 (02:10→11:37)
[2023-07-12] MEDS: LEVALBUTEROL NEB 1.25 MG/3 ML 0.63 MG INHALATION ×2 (02:10→11:37)
[2023-07-12 05:23] LABS: Basophils Percent Auto 0.3 % (0.2-1.2); Eosinophils Percent Auto 0.3 % (0-4.4); Immature Granulocyte Absolute 0.01 K/mm3 (0.00-0.031); Immature Granulocyte Percent A 0.3 % (0-0.5); Lymphocytes Absolute Auto 1.39 K/mm3 (0.9-3.2); Lymphocytes Percent Auto 45.1 % (18.3-44.2); Mean Corpuscular HGB Conc 30.8 g/dl (32-36); Mean Corpuscular Hemoglobin 27.1 pg (26-34); Mean Platelet Volume 10.4 fl (7.4-10.4); Monocytes Absolute Auto 0.4 K/mm3 (0.1-0.6); Monocytes Percent Auto 11.7 % (2.6-8.5); Neutrophils Absolute Auto 1.3 K/mm3 (1.3-6.7); Neutrophils Percent Auto 42.3 % (45.5-73.1); Platelet Count Result 199 k/mm3 (150-375); Red Blood Count 4.43 M/mm3 (4.2-5.4); Red Cell Distribution Width 15.8 % (11.5-14.5); White Blood Count 3.1 K/mm3 (4.5-10.0)
[2023-07-12] MEDS: ALBUTEROL SULFATE NEB 2.5 MG/3 ML INH 7.5 MG INHALATION (05:25)
[2023-07-12 05:34] LABS: Alanine Aminotransferase 53 U/L (6-35); Albumin Level 3.6 g/dL (3.5-5.1); Alkaline Phosphatase 90 U/L (38-126); Anion Gap 2 mmol/L (8-16); Aspartate Amino Transferase 67 U/L (14-36); Bilirubin,Total 0.4 mg/dL (0.2-1.3); Blood Urea Nitrogen 17 mg/dL (7-17); Calcium 8.6 mg/dL (8.4-10.2); Carbon Dioxide 36 mmol/L (22-30); Chloride 100 mmol/L (98-107); Cholesterol 142 mg/dL (0-200); Estimated CRCL calculation 110 ml/min; Estimated Glomerular Filt Rate > 60; Glucose 107 mg/dL (65-110); HDL Direct 34 mg/dL; Magnesium 2.1 mg/dL (1.6-2.3); Potassium 3.4 mmol/L (3.4-5.0); Sodium 138 mmol/L (137-145); Triglycerides 125 mg/dL (<150)
[2023-07-12 05:44] LABS: LDL Cholesterol Direct 69 mg/dL
[2023-07-12] MEDS: methylPREDNISolone SOD SUCC 40 MG VIAL IV PUSH ×2 (06:41→13:07)
[2023-07-12] MEDS: ONDANSETRON INJ 4 MG/2 ML VIAL IV PUSH (06:43)
[2023-07-12] MEDS: GABAPENTIN 300 MG CAPSULE PO (09:18)
[2023-07-12] MEDS: busPIRone HCL 10 MG TABLET PO (09:19)
[2023-07-12] MEDS: BENZONATATE 100 MG CAPSULE 200 MG PO ×2 (09:19→13:07)
[2023-07-12] MEDS: PANTOPRAZOLE 40 MG TABLET PO (09:19)
[2023-07-12] MEDS: OSELTAMIVIR PHOSPHATE 75 MG CAPSULE PO (09:19)
[2023-07-12] MEDS: FUROSEMIDE 40 MG TABLET PO (09:24)
--- NOTE | 2023-07-12 11:34 | P.DS_ITS ---
DS: Admitting Diagnosis Discharge Date 07/12/23 Admitting Diagnosis Acute Hypoxic Respiratory Failure Influenza B Morbid Obesity Asthma Heart Failure NELSON COPD Hypertension GERD Non-Compliance Migraine DS: Discharge Diagnosis Discharge Diagnosis (1) Acute hypoxic respiratory failure: Code(s): J96.01 - Acute respiratory failure with hypoxia Status: Acute Assessment and Plan: * As noted per ER record with oxygen saturation at 84%, requiring supplemental oxygen. * Suspect degree of hypoxia is due to acute infection with Influenza combined wtih COPD, Asthma and body habitus. * Suspect pt is supposed to wear supplemental oxygen at all times, however, she is unsure and admittedly doesn't. * Last Apnea link from 09/2022 was reviewed and it was not an adequate study to determine exact oxygen need. Pt was set up at that time however, with NOC oxygen per Hospitalists note of nocturnal hypoxia. No specifics in RT note. * Will repeat apnea link and request an outpt sleep study at discharge. * Home oxygen evaluation is also ordered. * Continue to monitor pt's labs and VS and pulse oximetry. * Telemetry * 07/12: Pt maintaining saturations without oxygen between 88%-92%. She has stable VS and labs are unremarkable. She is stable for return to home using her home oxygen as previously ordered. Pt will go home with script for tamiflu, steroids and cough meds. She is agreeable to this POC. (2) Influenza B: Code(s): J10.1 - Influenza due to other identified influenza virus with other respiratory manifestations Status: Acute Assessment and Plan: * Tamiflu 75 mg po BID for 5 days. * Supplemental oxygen for support * Supportive care * Antitussives ordered scheduled and PRN * Encourage rest and oral intake * Full code * 07/12: Pt to be discharged today with stable respiratory status, VS and Labs. She will have full course of Tamiflu for discharge with steroids and cough suppressants. (3) Morbid obesity: Code(s): E66.01 - Morbid (severe) obesity due to excess calories Status: Chronic Assessment and Plan: * Low fat diet initiated * Recommend lifestyle changes to decrease Cardiovascular risk factors. * 07/12: Pt to work on lifestyle changes as outpt. Highly recommended to decrease risk factors and improve overall breathing. (4) Asthma: Code(s): J45.909 - Unspecified asthma, uncomplicated Status: Chronic Assessment and Plan: * Not currently in exacerbation, but at risk for acute exacerbation in setting of acute Influenza B. * Continue all plan for #1 * Continue steroids started in ER, for concern of possible asthma/COPD component. * Nebs as ordered * Monitor labs and VS. * 07/12: Continue home medications. (5) Heart failure: Code(s): I50.9 - Heart failure, unspecified Status: Chronic Assessment and Plan: * Pt reports history and discloses Oil Burner as Dr. Carpio. However, there is no noted ECHO in our EMR. * Pt does take 40 mg Lasix daily at home * Physical exam concerning for the amount of peripheral edema the pt has, and her admitted non-compliance CPAP and oxygen therapy. * ECHO ordered. * CXR without any signs of pulmonary or vascular edema. * Will keep on telemetry * Check labs including A1C and Fasting lipid panel in AM. * 07/12: Pt's A1C and Fasting Lipids are without remarkability. ECHO was unremarkable as well. Pt to continue current meds and follow up with her Oil Burner. (6) NELSON (obstructive sleep apnea): Code(s): G47.33 - Obstructive sleep apnea (sarah
--- NOTE | 2023-07-12 11:34 | PM.DS ---
DS: Admitting Diagnosis Discharge Date 07/12/23 Admitting Diagnosis Acute Hypoxic Respiratory Failure Influenza B Morbid Obesity Asthma Heart Failure NELSON COPD Hypertension GERD Non-Compliance Migraine DS: Discharge Diagnosis Discharge Diagnosis (1) Acute hypoxic respiratory failure: Code(s): J96.01 - Acute respiratory failure with hypoxia Status: Acute Assessment and Plan: As noted per ER record with oxygen saturation at 84%, requiring supplemental oxygen. Suspect degree of hypoxia is due to acute infection with Influenza combined wtih COPD, Asthma and body habitus. Suspect pt is supposed to wear supplemental oxygen at all times, however, she is unsure and admittedly doesn't. Last Apnea link from 09/2022 was reviewed and it was not an adequate study to determine exact oxygen need. Pt was set up at that time however, with NOC oxygen per Hospitalists note of nocturnal hypoxia. No specifics in RT note. Will repeat apnea link and request an outpt sleep study at discharge. Home oxygen evaluation is also ordered. Continue to monitor pt's labs and VS and pulse oximetry. Telemetry 07/12: Pt maintaining saturations without oxygen between 88%-92%. She has stable VS and labs are unremarkable. She is stable for return to home using her home oxygen as previously ordered. Pt will go home with script for tamiflu, steroids and cough meds. She is agreeable to this POC. (2) Influenza B: Code(s): J10.1 - Influenza due to other identified influenza virus with other respiratory manifestations Status: Acute Assessment and Plan: Tamiflu 75 mg po BID for 5 days. Supplemental oxygen for support Supportive care Antitussives ordered scheduled and PRN Encourage rest and oral intake Full code 07/12: Pt to be discharged today with stable respiratory status, VS and Labs. She will have full course of Tamiflu for discharge with steroids and cough suppressants. (3) Morbid obesity: Code(s): E66.01 - Morbid (severe) obesity due to excess calories Status: Chronic Assessment and Plan: Low fat diet initiated Recommend lifestyle changes to decrease Cardiovascular risk factors. 07/12: Pt to work on lifestyle changes as outpt. Highly recommended to decrease risk factors and improve overall breathing. (4) Asthma: Code(s): J45.909 - Unspecified asthma, uncomplicated Status: Chronic Assessment and Plan: Not currently in exacerbation, but at risk for acute exacerbation in setting of acute Influenza B. Continue all plan for #1 Continue steroids started in ER, for concern of possible asthma/COPD component. Nebs as ordered Monitor labs and VS. 07/12: Continue home medications. 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 However, there is no noted ECHO in our EMR. Pt does take 40 mg Lasix daily at home Physical exam concerning for the amount of peripheral edema the pt has, and her admitted non-compliance CPAP and oxygen therapy. ECHO ordered. CXR without any signs of pulmonary or vascular edema. Will keep on telemetry Check labs including A1C and Fasting lipid panel in AM. 07/12: Pt's A1C and Fasting Lipids are without remarkability. ECHO was unremarkable as well. Pt to continue current meds and follow up with her Gun Fitter. (6) NELSON (obstructive sleep apnea): Code(s): G47.33 - Obstructive sleep apnea (adult) (pediatric) Status: Suspected Assessment and Plan: Apnea link ordered. CPAP from home to be used if available. Otherwise will obtain from respiratory. 07/12: Continue CPAP at home. (7) COPD (chronic obstructive pulmonary disease): Code(s): J44.9 - Chronic obstructive pulmonary disease, unspecified Status: Chronic Assessment and Plan: Continue Dulera Continue steroids as noted, as there is co
--- NOTE | 2023-07-12 12:23 | HOMEO2EVAL ---
Evaluation was performed at [facility] Home Oxygen Evaluation RC: Home Oxygen (O2) Evaluation Start: 07/11/23 09:07 Freq: ONCE Status: Active Protocol: RPE Activity Type Activity Date Activity User E-sign Co-sign Detail Recorded Client Recorded Date Recorded By Document 07/12/23 12:00 CLC [email or web address] 07/12/23 12:23 CLC Document 07/12/23 12:02 CLC [email or web address] 07/12/23 12:23 CLC Document 07/12/23 12:08 CLC [email or web address] 07/12/23 12:23 CLC 07/12/23 07/12/23 07/12/23 12:00 12:02 12:08 Home O2 Evaluation [Oxygen] -Test Phase Resting Resting Exercise -Oxygen Delivery Room Air Nasal Cannula Nasal Cannula -Oxygen Flow Rate (L/min) 2 2 [Pulse Oximetry] -Pulse Oximetry (90-100 %) 69 L 66 L 94 [Pulse Rate] -Pulse Rate (60-100 beats/min) 83 92 92 [Evaluation] -Activity Tolerance Good -Rating of Perceived Dyspnea (PD) +2 Mild, Some Difficulty, Noticeable to the Observer -Rate of Perceived Exertion (PE) 13 Somewhat Query Text:Click the Protocol Button Hard to View the RPE Scale [Exercise] -Ambulation Distance (feet) 50 -Ambulation Distance (meters) 15.23 [Comments] -Home Oxygen Evaluation Comments Patient required 2 liters per minute continuously. RN aware. [Charges] -Evaluation Charges O2 Evaluation by SOPHIA
--- NOTE | 2023-07-12 13:07 | PCRCNOTE ---
Home oxygen order sent to [facility]. Patient requires 2 liters per minute continuously.
--- NOTE | 2023-07-12 15:33 | PC.NURSE ---
Patient being discharge with home O2. Tank provided. Home medications returned.
== END 2023-07-12 15:51 | disposition home or self-care (01) ==
LOC: ANHED 07-11 02:26 → ANH3MEDSUR 07-11 03:10 → ANH2MED 07-11 15:45
PROVIDERS: Student in an Organized Health Care Education/Training Program; Admitting Provider Internal Medicine; Emergency Provider Physician Assistant; PCP Physician Assistant; Visit Provider Nurse Practitioner Adult Health
DX: J96.01 Acute respiratory failure with hypoxia (principal); J10.1 Influenza due to other identified influenza virus with other respiratory manifestations; J44.9 Chronic obstructive pulmonary disease, unspecified; Z99.81 Dependence on supplemental oxygen; Z91.199 Patient's noncompliance with other medical treatment and regimen due to unspecified reason; G43.909 Migraine, unspecified, not intractable, without status migrainosus; I11.0 Hypertensive heart disease with heart failure; I50.9 Heart failure, unspecified; F41.9 Anxiety disorder, unspecified; F32.A Depression, unspecified; E78.00 Pure hypercholesterolemia, unspecified; K58.9 Irritable bowel syndrome, unspecified; K21.9 Gastro-esophageal reflux disease without esophagitis; G56.00 Carpal tunnel syndrome, unspecified upper limb; Z20.822 Contact with and (suspected) exposure to COVID-19; E66.01 Morbid (severe) obesity due to excess calories; Z68.42 Body mass index [BMI] 45.0-49.9, adult; G62.9 Polyneuropathy, unspecified; G47.33 Obstructive sleep apnea (adult) (pediatric); Z87.891 Personal history of nicotine dependence; Z79.51 Long term (current) use of inhaled steroids
CPT/HCPCS: 36415; 71046; 80053; 80061; 81001; 81025; 83690; 83735; 83880; 84484; 85025; 87637; 93005; 94618; 94640; 94762; 96374; 96375; 96376; 99285; A9270; C8929; G0378; G0379; J2405; J2920; J7512; Q9957

== ENCOUNTER 2024-09-04 17:26 | Emergency (ER) | payer OTHER, SELFPAY ==
--- NOTE | ~2024-09-04 | XR_ITS ---
XR chest 1V portable Ordering provider: Sonya Roman MD History: 44 years Female with . CHEST PAIN . Comparison: July 10, 2023 FINDINGS: MEDIASTINUM: The cardiac silhouette is not enlarged. LUNGS: No effusions or pneumothorax. Haziness in the left lung base which may indicate atelectasis ve rsus early pneumonia. Follow-up advised. OTHER: No free air under the diaphragm. IMPRESSION: Haziness in the left lung base which may indicate atelectasis versus early pneumonia. Follow-up advis ed. Reviewed, dictated and finalized at location A. IMPRESSION: Haziness in the left lung base which may indicate atelectasis versus early pneu monia. Follow-up advised.
--- NOTE | ~2024-09-04 | CT_ITS ---
EXAMINATION: CT abd pelvis lumbar w con DATE: 09/04/2024 22:13 INDICATION: Abdomen and pelvis pain generalized. TECHNIQUE: Computed tomography (CT) of the abdomen, pelvis and lumbar spine was performed without int ravenous contrast. The dose-length product was 1707.37 mGy-cm. Automated exposure control and iterati ve reconstruction technique were employed. COMPARISON: None FINDINGS: Abdomen/pelvis: There is left lower lobe atelectasis. Heart size normal. No significant ple ural or pericardial effusion. Borderline splenomegaly. Status post cholecystectomy. There are calcifi ed granulomas of the spleen. The pancreas, left adrenal gland and kidneys are unremarkable. There is a small low-density mass in the right adrenal gland measuring 1.3 cm, likely benign adenoma. Nonobstr uctive bowel gas pattern. Small fat-containing umbilical hernia. Lumbar spine: There are multiple chronic wedge compression deformities of the lower thoracic spine. T here is disc narrowing at L4-5 and L5-S1. No acute fracture or traumatic malalignment. IMPRESSION: 1. No acute abnormality of the abdomen, pelvis or lumbar spine. Reviewed, dictated and finalized at location A.
--- OUTSIDE RECORDS SUMMARY | 2024-09-04 17:29 | XMS_ITS | Clinical Summary ---
Author Organization [facility] [employer] Address [address] [place] [address] Care Team Providers Care Furnishings Conservator Name Role Phone Tc Garcia MD Primary Care Provider [phone] Source Comments [facility]non-owned Affiliates and Associated Physician Practices is amultiple site organization consisting of ambulatory clinics and hospital sitesin [place], [place], [place] and [place]. This disclosure is being madepursuant to the Care Everywhere program and may not contain all information available regarding this patient. Last updated 18.[facility] [employer] Allergies Active Allergy Reactions Criticality Noted Date Comments Acetaminophen-Codeine Anaphylaxis,Rash High 04/06/20 20 Cynara Scolymus, Artichoke Anaphylaxis High 06/27/2014 Aspirin Rash Low 06/27/2014 Rash and triggers asthma Blue Dyes Rash,Swelling Medium 04/05/2014 Blueberry Flavor Swelling 06/27/2014 Swelling throat glands and tongue Also allergic to blueberry dye Budesonide-Formoterol Fumarate Psychiatric Medium 09/06/2021 Triggers asthma Codeine Rash Low 06/27/2014 And triggers asthma Latex Rash Low 06/27/2014 Mukesh Flavor Rash Medium 04/06/2020 Hydrocortisone Urticaria Medium 11/11/2021 Hives on face Peanut Allergen Powder-Dnfp Swelling High 06/27/2014 Swelling throat Swelling throat Peanut-Derived Swelling 06/27/2014 Swelling throat glands and tongue Penicillins Rash Low 06/27/2014 Pineapple Anaphylaxis High 10/24/2021 Punica Rash High 04/06/2020 Raspberry Rash Medium 04/06/2020 Rubus Fruticosus Angioedema High 10/24/2021 Pickled Meat Diarrhea,Rash Low 06/27/2014 Sulfa Drugs Urticaria High 09/19/2021 Triggers asthma Tioconazole Rash Medium 04/06/2020 Topiramate Nausea and/or Vomiting Low 04/06/2020 Vaccinium Angustifolium Shortness of Breath High 07/2021 Medications * Be aware that medications may not be up to date on this document. Alwaysverify current medications with the patient. cetirizine (ZYRTEC) 10 MG tabletIndicatio ns:Snoring,Morb id obesity (HCC),Insomnia, Nocturnal leg movements,Juan omnia Take 10 mg by mouth once daily. 5 5 Active SUMAtriptan (IMITREX) 100 MG tabletIndicatio ns:Snoring,Morb id obesity (HCC),Insomnia, Nocturnal leg movements,Juan omnia Take 100 mg by mouth once daily. 3 5 Active ADVAIR DISKUS 250-50 MCG/DOSE inhalerIndicati ons:Snoring,Mor bid obesity (HCC),Insomnia, Nocturnal leg movements,Juan omnia Inhale 1 Puff by mouth 2 times daily. 6 4 Active QVAR 80 MCG/ACT inhalerIndicati ons:Snoring,Mor bid obesity (HCC),Insomnia, Nocturnal leg movements,Juan omnia Inhale 2 Puffs by mouth 2 times daily. 3 5 Active VENTOLIN HFA 108 (90 BASE) MCG/ACT inhalerIndicati ons:Snoring,Mor bid obesity (HCC),Insomnia, Nocturnal leg movements,Juan omnia Inhale 2 Puffs by mouth every 4 hours as needed. 0 5 Active cloNIDine (CATAPRES) 0.1 MG tabletIndicatio ns:Snoring,Morb id obesity (HCC),Insomnia, Nocturnal leg movements,Juan omnia Take 0.1 mg by mouth 2 times daily. [address] (DEPAKOTE) 500 MG tabletIndicatio ns:Snoring,Morb id obesity (HCC),Insomnia, Nocturnal leg movements,Juan omnia Take 500 mg by mouth 2 times daily. 2 5 Active omeprazole (PRILOSEC) 20 MG capsuleIndicati ons:Snoring,Mor bid obesity (HCC),Insomnia, Nocturnal leg movements,Juan omnia Take 1 Cap by mouth once daily. 4 Active hydrOXYzine pamoate (VISTARIL) 50 MG capsuleIndicati ons:Snoring,Mor bid obesity (HCC),Insomnia, Nocturnal leg movements,Juan omnia Take 50 mg by mouth at bedtime. 1 5 Active EPIPEN 2-VASILIY 0.3 MG/0.3ML auto-injectorIn dications:Snori ng,Morbid obesity (HCC),Insomnia, Nocturnal leg movements,Juan omnia Inject 0.3 mL into muscle as needed. 0 4 Active etonogestrel (NEXPLANON) 68 MG implantIndicati ons:Snoring,Mor bid obesity (HCC),Insomnia, Nocturnal leg movements,Juan omnia 68 mg by Subdermal route as directed. Active rimegepant (NURTEC) 75 MG tablet Take 75 mg by mouth once daily as needed for Migraine Please take Nurtec 75 mg (1 tablet) every other day. 16 tablet 5 2 Active Active Problems Problem Noted Date Diagnosed Date Edema 12/19/2021 Migraine 12/19/2021 Nausea 12/19/2021 Rectal hemorrhage 12/19/2021 Rhinitis 12/19/2021 Skin eruption 12/19/2021 Streptococcal sore throat 12/19/2021 Urinary tract infectious disease 12/19/2021 Vitamin D deficiency 12/19/2021 Infectious disease contact 11/15/2021 Venous insufficiency 11/15/2021 Cavitary pneumonia 11/11/2021 Acute respiratory failure with hypoxia Mild intermittent asthma without complication Essential hypertension 11/11/2021 Pneumonia of left lower lobe due to infectious o rganism 11/03/2021 Sepsis 10/23/2021 Tobacco dependence syndrome 09/18/2021 Eosinophilic esophagitis 12/11/2020 Overview (12/19/2021): Added automatically from request for surgery [id number] Allergic rhinitis due to dust mite 04/28/2020 Chronic back pain 04/28/2020 Depression 04/28/2020 Gastroesophageal reflux disease without esophagi tis 04/28/2020 Overview (12/19/2021): Added automatically from request for surgery [id number] Other atopic dermatitis 04/28/2020 Severe persistent asthma without complication Hypertriglyceridemia 03/23/2019 Carpal tunnel syndrome, bilateral 08/25/2014 NELSON (obstructive sleep apnea) 08/10/2014 Overview (08/10/2014): 08/02/14 Mod-severe NELSON worse in REM sleep AHI 17.5 RDI 37.1 Min 02 sat 75% Titrated to 18 cm H20 We will order CPAP Morbid obesity 06/27/2014 Insomnia 06/27/2014 Inadequate sleep hygiene 06/27/2014 Allergic rhinitis due to pollen 04/05/2014 Overview (12/19/2021): Overview: PST (04/05/14): +HDM Asthma 04/05/2014 History of food allergy 04/05/2014 Overview (12/19/2021): Overview: Peanuts/blueberries/artichoke/pork sausage/talapia Tobacco use 04/05/2014 Resolved Problems Problem Noted Date Diagnosed Date Resolved Date Snoring 06/27/2014 08/10/2014 Social History Tobacco Use Types Packs/Day Years Used Date Smoking Tobacco: Some Days Cigarettes Smokeless Tobacco: Never Alcohol Use Standard Drinks/Week Comments Yes 0 (1 standard drink = 0.6 oz pur e alcohol) occassionally AUDIT-C Answer Date Recorded Q1: How often do you have a drink containing alc ohol? Monthly or less 11/10/2021 Q2: How many drinks containi ng alcohol do you have on a typical day when you are drinking? 3 or 4 11/10/2021 Q3: How often do you have si x or more drinks on one occasion? Less than monthly 11/10/2021 Comments No Sex and Gender Information Value Date Recorded Sex Assigned at Not on file Legal Sex Female 10:26 AM AUTHOR'S AGENT Gender Identity Not on file Sexual Orientation Not on file Last Filed Vital Signs Vital Sign Reading Time Taken Comments Blood Pressure 137/82 12/19/2021 3:01 PM CDT Pulse 89 12/19/2021 3:01 PM CDT Temperature 36.6 C (97.8 F) 12/19/2021 3:01 PM CDT Respiratory Rate 16 11/12/2021 5:41 PM CDT Oxygen Saturation 98% 12/19/2021 3:01 PM CDT Inhaled Oxygen Concentration - - Weight 153.9 kg (339 lb 3.2 oz) 12/19/2021 3:01 PM CDT Height 165.1 cm (5' 5 ) 11/10/2021 8:11 AM CDT Body Mass Index 56.45 11/10/2021 8:11 AM CDT Plan of Treatment Health Maintenance Due Date Last Done Comments LIPID TESTING 1982 MAMMOGRAM 1982 PAP SMEAR 1982 HIV SCREENING 1997 HEPATITIS C SCREENING 06/23/2000 DTAP/TDAP/TD VACCINES (1 - Tdap) 2001 HEPATITIS B VACCINE (1 of 3 - 19+ 3-dose series) 2001 PNEUMOCOCCAL VACCINE (1 of 2 - PCV) 2001 COVID-19 VACCINE (1 - 2023-2 5 season) 2024 DEPRESSION SCREENING 05/19/2024 INFLUENZA VACCINE (Season Ended) 2025 ZOSTER VACCINE (1 of 2) 2032 HIB VACCINE Aged Out No longer eligi ble based on patient's age to complete this topic HPV VACCINE Aged Out No longer eligi ble based on patient's age to complete this topic MENINGOCOCCAL (Group B) VACC INE SHARED DECISION-MAKING Aged Out No longer eligibl e based on patient's age to complete this topic MENINGOCOCCAL GROUPS A/C/Y/W VACCINE Aged Out No longer eligible b ased on patient's age to complete this topic Insurance Advance Directives * Full Code (Latest Code Status on File) Date Activated Date Inactivated Comments 11/10/2021 8:15 AM 11/12/2021 7:47 PM Care Teams Furnishings Conservator Relationship Specialty Start Date End Date Tc Garcia MD [address] [place] [id number] PCP - General 12/19/21
--- OUTSIDE RECORDS SUMMARY | 2024-09-04 17:29 | XMS_ITS | Clinical Summary ---
Author Organization [facility] Address [address] [place] [address] Care Team Providers Care Pillowcase Folder Name Role Phone Zaheer Castro Primary Care Provider + Allergies Active Allergy Reactions Criticality Noted Date Comments Acetaminophen-Codeine Rash High 04/06/2020 Artichoke Anaphylaxis High 06/27/2014 Aspirin Rash Medium Blackberry Angioedema High 10/24/2021 Blue Dye Rash Medium 04/06/2020 Blueberry Flavor Swollen tongue High 06/27/2014 Swelling throat. Also allergic to blueberry dye Budesonide Other (See comments) Medium 09/06/2021 Triggers asthma Codeine Rash Medium Triggers asthma Fish Containing Products Angioedema High 10/24/2021 Garbanzo Beans Angioedema High 10/25/2021 Latex Rash Medium [place] Rash Medium 04/06/2020 Morphine Rash Medium 04/28/2020 Nsaids (Non-Steroidal Anti-Inflammatory Drug) Hives Medium 05/31/2022 Triggers asthma Peanut Swollen tongue High 06/27/2014 Swelling throat Peanut Allergen Powder-Dnfp Swelling High 06/27/2014 Swelling throat Penicillins Rash Medium Pineapple Anaphylaxis High 10/24/2021 Pomegranate Rash Medium 04/06/2020 Beclomethasone Dipropionate Rash Medium 04/06/2020 Raspberry Rash Medium 04/06/2020 Sulfa (Sulfonamide Antibiotics) Hives Medium 10/17/2021 Triggers asthma Triggers asthma Budesonide-Formoterol Other (See comments) Medium 04/05/2021 Triggers asthma Tioconazole Rash Medium 04/06/2020 Topiramate Nausea & Vomiting Low 04/06/2020 Medications azelastine (OPTIVAR) 0.05 % ophthalmic solution azelastine 0.05 % eye drops Active etonogestreL (NEXPLANON) 68 mg implant Nexplanon 68 mg subdermal implant Inject 1 implant by subcutaneous route. Activ e nystatin powder as needed Acti ve hydroCHLOROthiaz christen (MICROZIDE) 12.5 mg capsule hydrochlorothiazide 12.5 mg capsule TAKE ONE CAPSULE BY MOUTH DAILY Active EPINEPHrine 0.3 mg/0.3 mL auto-injection syringe Inject 0.3 mL (0.3 mg total) into the muscle as instructed as needed for anaphylaxis 2 Syringe 3 2020 Active Additional Information Patient not taking.Reported on 11/20/2021 ondansetron ODT (ZOFRAN-ODT) 4 mg disintegrating tablet Take 1 tablet (4 mg total) by mouth 2 (two) times a day as needed for nausea or vomiting 30 tablet 3 2020 Active dilTIAZem CD/XR/XT (CARDIZEM CD,DILACOR XR) 120 mg 24 hr capsule Take by mouth 2021 Active albuterol 2.5 mg /3 mL (0.083 %) nebulizer solutionIndicati ons:Severe persistent asthma without complication (HCC) Take 3 mL (2.5 mg total) by nebulization every 4 (four) hours as needed for wheezing or shortness of breath 375 mL 11 2021 Active cetirizine (ZyrTEC) 10 mg tabletIndication s:Allergic rhinitis due to dust mite Take 1 tablet (10 mg total) by mouth daily 30 tablet 3 2021 Active diclofenac sodium (VOLTAREN) 1 % gel Apply 4 g topically 4 (four) times a day 50 g 2021 Active Additional Information Patient not taking.Reported on 02/05/2024 lidocaine (LIDODERM) 5 % Place 1 patch on the skin daily Remove & discard patch within 12 hours or as directed by MD. 30 patch 2021 Active oxyCODONE (ROXICODONE) 5 mg immediate release tabletIndication s:Pain Take 1 tablet (5 mg total) by mouth every 6 (six) hours as needed for pain for up to 20 doses 20 tablet 2021 Active Additional Information Patient not taking.Reported on 11/20/2021 butalbital-aceta minophen-caffein e (ESGIC) 50-325-40 mg per tablet Take 1 tablet by mouth every 6 (six) hours as needed for headaches 120 tablet 2021 Active hydrOXYzine (ATARAX) 25 mg tablet Take 1 tablet (25 mg total) by mouth nightly as needed (for sleep) 30 tablet 2021 Active Additional Information Patient not taking.Reported on 02/05/2024 fluconazole (DIFLUCAN) 150 mg tablet 2021 Active mometasone-formo terol (Dulera) 200-5 mcg/actuation inhalerIndicatio ns:Severe persistent asthma without complication (HCC) Inhale 2 puffs 2 (two) times a day Rinse mouth with water after use. Do not swallow. 1 each 11 2021 Active busPIRone (BUSPAR) 5 mg tabletIndication s:Generalized Anxiety Disorder Take 1 tablet (5 mg total) by mouth 2 (two) times a day Active tiotropium bromide (SPIRIVA RESPIMAT) 2.5 mcg/actuation inhaler Inhale 2 puffs daily Active lidocaine viscous (lidocaine) 2 % solution GI Cocktail: 3 part Gaviscon ( any liquid anti-acid),1 part Carafate, 1 part 2% Vis Lidocaine ( 3:1:1 ratio) swallow 5 ml PRN upto 4 times a day for the next 5-7 days 350 mL 2022 Active Additional Information Patient not taking.Reported on 02/05/2024 ProAir HFA 90 mcg/actuation inhalerIndicatio ns:Severe persistent asthma without complication (HCC) INHALE 2 PUFFS BY MOUTH EVERY 4 HOURS NEEDED FOR WHEEZING OR SHORTNESS OF BREATH 8.5 g 2022 Active losartan (COZAAR) 100 mg tablet Take 1 tablet (100 mg total) by mouth daily 2021 Active potassium chloride ER 10 mEq CR tablet Take 1 tablet/capsule (10 mEq total) by mouth 2 (two) times a day 2023 Active furosemide (LASIX) 40 mg tablet Take 1 tablet (40 mg total) by mouth 2 (two) times a day [address] (PROTONIX) 40 mg EC tablet TAKE 1 TABLET(40 MG) BY MOUTH TWICE DAILY 60 tablet [address] (PROTONIX) 40 mg EC tablet Take 1 tablet (40 mg total) by mouth 2 (two) times a day 60 tablet 6 08/16 Discontinued Active Problems Problem Noted Date Diagnosed Date Esophageal dysphagia 04/24/2022 Overview (04/24/2022): Added automatically from request for surgery [id number] Sepsis 10/23/2021 Eosinophilic esophagitis 12/11/2020 Overview (12/11/2020): Added automatically from request for surgery [id number] Gastroesophageal reflux disease without esophagi tis 09/08/2020 Overview (09/08/2020): Added automatically from request for surgery [id number] Severe persistent asthma without complication Hypertension 04/28/2020 Chronic back pain 04/28/2020 Depression 04/28/2020 GERD (gastroesophageal reflux disease) 0 Severe persistent asthma 04/28/2020 Allergic rhinitis due to dust mite 04/28/2020 Other atopic dermatitis 04/28/2020 Surgical History Surgery Date Site/Laterality Comments CHOLECYSTECTOMY 05/19/2003 - 05/18/2004 SECTION x2 ESOPHAGOGASTRODUODENOSCOPY Medical History Medical History Date Comments Sleep apnea ADD (attention deficit disorder) Learning disability Comprehensio n Scoliosis Carpal tunnel syndrome Restless leg syndrome Bulging of cervical intervertebral disc Herniated lumbar intervertebral disc Arthritis left knee Asthma Multiple food allergies Helicobacter pylori gastritis 10/05/2020 GERD (gastroesophageal reflux disease) Anemia Hypertension COPD (chronic obstructive pulmonary disease) (HC C) Family History Medical History Relation Name Comments Asthma Father Heart disease Father Hypertension Father Kidney disease Father HTN Mother Relation Name Status Comments Father Mother Alive Social History Tobacco Use Types Packs/Day Years Used Date Smoking Tobacco: Former Cigarettes 0.5 5.3 2 020 - 1992 Smokeless Tobacco: Never Tobacco Cessation:Counseling Given: Not Answered Alcohol Use Standard Drinks/Week Comments Yes 0 (1 standard drink = 0.6 oz pur e alcohol) Occasionally Social Connection and Isolat ion Panel [NHANES] Answer Date Recorded In a typical week, how many times do you talk on the phone with family, friends, or neighbors? More than three times a week 11/01/2021 How often do you get togethe r with friends or relatives? More than three times a week 11/01/2021 How often do you attend chur ch or sikhism services? Never 11/01/2021 Do you belong to any clubs o r organizations such as cheondoism groups, unions, fraternal or athletic groups, or school groups? No 11/01/2021 How often do you attend meet ings of the clubs or organizations you belong to? Never 11/01/2021 Are you , , di vorced, , never , or living with a partner? 11/01/2021 AUDIT-C Answer Date Recorded Q1: How often do you have a drink containing alc ohol? Monthly or less 05/31/2022 Q2: How many drinks containi ng alcohol do you have on a typical day when you are drinking? 5 or 6 05/31/2022 Q3: How often do you have si x or more drinks on one occasion? Less than monthly 05/31/2022 Overall Financial Resource Strain (CARDIA) Answe r Date Recorded How hard is it for you to pa y for the very basics like food, housing, medical care, and heating? Somewhat hard 11/01/2021 Hunger Vital Sign Answer Date Recorded Within the past 12 months, y ou worried that your food would run out before you got the money to buy more. Never true 11/02/19 22 Within the past 12 months, t he food you bought just didn't last and you didn't have money to get more. Never true 11/01/2021 PRAPARE - Transportation Answer Date Re corded In the past 12 months, has l ack of transportation kept you from medical appointments or from getting medications? No 10/17 In the past 12 months, has l ack of transportation kept you from meetings, work, or from getting things needed for daily living? No 11/01/2021 Housing Stability Vital Sign Answer Prasanth e Recorded In the last 12 months, was t here a time when you were not able to pay the mortgage or rent on time? No 11/01/2021 In the last 12 months, how many places have you lived? 1 11/01/2021 In the last 12 months, was t here a time when you did not have a steady place to sleep or slept in a assisted (including now)? 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 Gender Identity Not on file Sexual Orientation Not on file Obstetrics History Para Term AB IAB SAB Ectopic Multiple Livin g Live Births 3 2 2 Date Outcome GA Total Labor Labor/2nd/3rd Weight Sex Type Anes PTL Tonie A1 A5 Name Clin Term Term Last Filed Vital Signs Vital Sign Reading Time Taken Comments Blood Pressure 128/64 02/05/2024 1:04 PM CDT Pulse 85 02/05/2024 1:04 PM CDT Temperature 36.2 C (97.2 F) 02/05/2024 1:04 PM CDT Respiratory Rate 17 05/31/2022 2:50 PM BRASS BOBBIN WINDER Oxygen Saturation 97% 02/05/2024 1:04 PM CDT Inhaled Oxygen Concentration - - Weight 144.2 kg (318 lb) 02/05/2024 1:04 PM CDT Height 165.1 cm (5' 5 ) 02/05/2024 1:04 PM CDT Body Mass Index 52.92 02/05/2024 1:04 PM CDT Plan of Treatment Health Maintenance Due Date Last Done Comments Breast Cancer Screening-Mammogram 1982 Cervical Cancer Screening 1982 Depression Screening 1982 Hepatitis C Screening 1982 DTaP/Tdap/Td Vaccine (1 - Tdap) 1993 Varicella Vaccines (1 of 2 - 13+ 2-dose series) 1995 Hepatitis B Screening 2000 Regular Well Visit/Exam 18-64 2000 Pneumococcal vaccine <65 (1 of 2 - PCV) 2001 Influenza Vaccine (Season Ended) 2025 HPV Vaccines Aged Out No longer eligi ble based on patient's age to complete this topic Insurance [facility] Advance Directives For more information, please contact: [phone] Documents on File Type Date Recorded Patient Billiard Table Repairer Expl anation ADVANCE DIRECTIVE 10/28/2021 4:10 PM POWER OF HEALTH INFORMATION MANAGER-MEDICAL * Full Code (Latest Code Status on File) Date Activated Date Inactivated Comments 05/31/2022 1:12 PM 05/31/2022 7:12 PM * Full Code Date Activated Date Inactivated Comments 10/24/2021 2:27 AM 10/28/2021 8:44 PM * Full Code Date Activated Date Inactivated Comments 01/18/2021 6:54 AM 01/18/2021 12:36 PM * Full Code Date Activated Date Inactivated Comments 10/05/2020 11:31 AM 10/05/2020 6:04 PM Care Teams Pillowcase Folder Relationship Specialty Start Date End Date Zaheer aCstro PA [address] [place] [id number] PCP - General Internal Medicine 09/11/23
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
--- OUTSIDE RECORDS SUMMARY | 2024-09-04 17:29 | XMS_ITS | Referral Summary ---
Author Organization [facility] Address [address] [place] [address] Care Team Providers Care Senior Clinical Data Analyst Name Role Phone Zaheer Castro Primary Care [...] Beans Angioedema High 10/25/2021 Latex Rash Medium [place] Rash Medium 04/06/2020 Morphine Rash Medium 04/28/2020 [...] (04/24/2022): Added automatically from request for surgery [id number] Sepsis 10/23/2021 Eosinophilic esophagitis 12/11/2020 Overview (12/11/2020): Added automatically from request for surgery [id number] Gastroesophageal reflux disease without esophagi tis 09/08/2020 Overview (09/08/2020): Added automatically from request for surgery [id number] Severe persistent asthma without complication Hypertension 04/28/2020 Chronic back pain 04/28/2020 Depression 04/28/2020 GERD (gastroesophageal reflux disease) 0 Severe persistent asthma 04/28/2020 Allergic rhinitis due to dust mite 04/28/2020 Other atopic dermatitis 04/28/2020 Social History Tobacco Use Types Packs/Day Years Used Date Smoking Tobacco: Former Cigarettes 0.5 5.3 2 020 - 1991 Smokeless Tobacco: Never Tobacco Cessation:Counseling Given: Not [...] 11/01/2021 How often do you attend chur or religion services? Never 11/01/2021 Do you belong to any clubs o r organizations such as restoration groups, unions, fraternal or athletic groups, or [...] place to sleep or slept in a prison (including now)? 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 Gender Identity Not on file Sexual Orientation Not on file Last Filed Vital Signs Vital Sign Reading Time Taken Comments Blood Pressure 128/64 02/05/2024 1:04 PM CDT Pulse 85 02/05/2024 1:04 PM CDT Temperature 36.2 C (97.2 F) 02/05/2024 1:04 PM CDT Respiratory Rate 17 05/31/2022 2:50 PM PRODUCTION LINE OPERATOR Oxygen Saturation 97% 02/05/2024 1:04 PM CDT Inhaled Oxygen Concentration - - Weight 144.2 kg (318 lb) 02/05/2024 1:04 PM CDT Height 165.1 cm (5' 5 ) 02/05/2024 1:04 PM CDT Body Mass Index 52.92 02/05/2024 1:04 PM CDT Plan of Treatment Not on file Insurance [facility] Advance Directives For more information, please contact: [phone] Documents on File Type Date Recorded Patient Slurry Man Expl anation ADVANCE DIRECTIVE 10/28/2021 4:10 PM POWER OF GLOBAL MARKETING OPERATIONS MANAGER-MEDICAL * Full Code (Latest Code Status [...] 11:31 AM 10/05/2020 6:04 PM Care Teams Senior Clinical Data Analyst Relationship Specialty [place] [address] [place] [id number] PCP - General Internal Medicine 09/11/23
--- OUTSIDE RECORDS SUMMARY | 2024-09-04 17:29 | XMS_ITS | Clinical Summary ---
Author Organization [facility] Address [address] [place] [id number] Care Team Providers Care Shoe Dyer Name Role Phone Dulce Carpio MD Primary Care Provider [phone] Allergies Active Allergy Reactions Criticality Noted Date Comments Blue Dyes (Parenteral) Rash Medium 04/06/2020 Budesonide-Formoterol Fumarate Other (see comment) Medium 09/06/2021 Triggers asthma Peanut Allergen Powder-Dnfp Throat swelling High 06/27/2014 Swelling throat Sulfa Antibiotics Hives Medium 10/17/2021 Triggers asthma Acetaminophen-Codeine Anaphylaxis High 09/19/2021 Medications albuterol sulfate HFA 108 (90 Base) MCG/ACT inhaler Inhale 2 puffs into the lungs every 4 (four) hours as needed for Wheezing. 8 g 10/17/2021 Active Social History Tobacco Use Types Packs/Day Years Used Date Smoking Tobacco: Never Assessed Comments Unknown Sex and Gender Information Value Date Recorded Sex Assigned at Not on file Legal Sex Female 4:04 PM CDT Gender Identity Not on file Sexual Orientation Not on file Last Filed Vital Signs Vital Sign Reading Time Taken Comments Blood Pressure 120/82 10/17/2021 7:15 AM CDT Pulse 89 10/17/2021 7:15 AM CDT Temperature 38.1 C (100.6 F) 10/17/2021 3:52 AM CDT Respiratory Rate 20 10/17/2021 6:45 AM CDT Oxygen Saturation 94% 10/17/2021 7:15 AM CDT Inhaled Oxygen Concentration - - Weight - - Height - - Body Mass Index - - Plan of Treatment Health Maintenance Due Date Last Done Comments Cervical Cancer Screening Pa p Smear (Age 30 to 64) Every 3 Years 1982 Annual Physical 1985 Hepatitis C 2000 DTaP, Tdap and Td Vaccines ( 1 - Tdap) 2001 Hepatitis B Vaccines (1 of 3 - 19+ 3-dose series) 2001 Cervical Cancer Screening Pa p with HPV Testing (Age 30 to 64) Every 5 Years 2012 Cervical Cancer Screening with HPV 2012 Mammogram Screening 2022 COVID-19 Vaccine ( - 2023-2 5 season) 2024 HPV Vaccines Aged Out No longer eligi ble based on patient's age to complete this topic Meningococcal B Vaccine Aged Out No l onger eligible based on patient's age to complete this topic Meningococcal Vaccine Aged Out No kristin stacey eligible based on patient's age to complete this topic Pneumococcal Vaccine: Pediat rics (0 to 5 Years) and At-Risk Patients (6 to 49 Years) Aged Out No longer eligible b ased on patient's age to complete this topic RSV Immunizations Under 20 Months Aged Out No longer eligible based on patient's age to complete this topic Insurance Care Teams Shoe Dyer Relationship Specialty Start Date End Date Dulce Carpio MD [address] [place] [address] PCP - General CARDIOVASCULAR DISEASE 10/17/21
--- OUTSIDE RECORDS SUMMARY | 2024-09-04 17:30 | XMS_ITS | Data Portability ---
Author Organization [facility] [employer], Main Office Address [address] [place] [address] Care Team Providers Care Computational Linguist Name Role Phone ZAHEER CASTRO Primary Care Provider [phone] Assessment No assessment recorded. Plan of Treatment Reminders Order Date Submit Date Provider Last Modified By Organization Details Last Modified Time Details Appointments Follow Up 15 2024 09:30A M ERIC Cm Not available Not available Not available Lab food allergen panel, serum [address] (Lab), [address] [place], [address], 01/28/2024 08:39:41 respirato ry allergen panel - [facility] b [address] (Lab), [address] [place], [address], 01/28/2024 08:39:41 urinalysi s, dipstick 2023 024 [email or web address] [facility] [address], [place], [address], 01/21/2024 17:24:04 culture, urine + sensitivi ty [address] (Lab), [address] [place], [address], 01/28/2024 08:39:41 urinalysi s, dipstick 2023 024 [email or web address] 00 [facility] [address], [place], [address], 12/26/2023 16:28:04 culture, urine + sensitivi ty 2023 024 [facility] [address] [place], [address], 12/29/2023 08:41:59 Referral tire classifier referral - allergic rhinitis , nothing seems to help . I ordered a food allergen panel and a respirato ry allergen blood panel . Please call patient to schedule an appointme nt. Thank you 2023 024 [email or web address] Ruperto Irene MD, [address] [address], [place], [address], 03/02/2024 08:47:04 orthopedi c surgeon referral - chronic right knee pain , inner . Please eval and treat. Please call patient to schedule an appointme nt. thank you 2023 024 [email or web address] [facility], [address], [place], [address], 02/23/2024 09:06:44 physical therapist referral - *Please call pt to schedule* 2023 [email or web address] [place] [address] [facility], [address] [place], [address], 10/15/2023 08:56:36 podiatris t referral - Please call patient to schedule an appointme nt 2023 024 [email or web address] Soco Frye DPM, [address] [place], [address], 08/14/2023 10:31:59 Procedures None recorded. Surgeries None recorded. Imaging XR, hip + pelvis, bilateral 2023 024 [email or web address] 56 [facility] ([facility]), [address], [place], [address], 09/29/2023 09:55:10 MRI, shoulder, w/o contrast - *Please call pt to schedule* 2023 024 [facility], [address], [place], [address], 07/25/2023 18:43:09 Medication Orders ciproflox acin 500 mg tablet [email or web address] [place] [address] [facility], [address], [place], [id number], 08/26/2024 14:49:33 cetirizin e 10 mg tablet 2023 024 [facility]35309, [address], [id number], 12/26/2023 12:22:48 furosemid e 40 mg tablet 2023 024 [facility]75261, [address], [place], [place], [id number], 12/26/2023 12:21:39 potassium chloride ER 10 mEq tablet,ex tended release 2023 024 [email or web address] #56693, [address], [place], [place], [id number], 01/21/2024 16:22:17 gabapenti n 300 mg capsule 2023 024 [facility]99334, [address], [place], [place], [id number], 12/26/2023 12:21:43 Dulera 200 mcg-5 mcg/actua tion HFA aerosol inhaler 2023 024 [facility] #50344, [address], [place], [place], [id number], 12/26/2023 12:21:39 albuterol sulfate HFA 90 mcg/actua tion aerosol inhaler 2023 024 [facility] #53756, [address], [place], [place], [id number], 12/26/2023 12:24:06 ondansetr on 8 mg disintegr ating tablet 2023 [facility] #57441, [address], [place], [place], [id number], 12/26/2023 12:22:03 butalbita l-acetami nophen-ca ffeine 50 mg-325 mg-40 mg tablet 2023 024 [facility] #29119, [address], [place], [place], [id number], 12/26/2023 12:21:46 losartan 50 mg tablet 2023 024 [facility] #35053, [address], [place], [place], [id number], 12/26/2023 12:21:39 albuterol sulfate HFA 90 mcg/actua tion aerosol inhaler 2023 024 [facility] #38572, [address], [place], [place], [id number], 09/15/2023 11:30:38 Dulera 200 mcg-5 mcg/actua tion HFA aerosol inhaler 2023 024 [facility] #11503, [address], [place], [place], [id number], 09/15/2023 11:30:36 Spiriva Respimat 2.5 mcg/actua tion solution for inhalatio n 2023 024 [facility] #61607, [address], [place], [place], [id number], 09/15/2023 11:30:35 cetirizin e 10 mg capsule 2023 [facility] #58596, [address], [place], [place], [id number], 12/26/2023 12:05:22 ondansetr on 8 mg disintegr ating tablet 2023 [facility] #40802, [address], [place], [place], [id number], 07/17/2023 10:02:10 butalbita l-acetami nophen-ca ffeine 50 mg-325 mg-40 mg tablet 2023 024 [facility] #82768, [address], [place], [place], [id number], 07/17/2023 10:02:13 doxycycli ne hyclate 100 mg tablet 2023 024 [facility] #00661, [address], [place], [place], [id number], 12/26/2023 12:05:32 Patient TargetsNo targets recorded. Patient InstructionsNo instructions recorded. Reason for Referral J2Ee Developer Referral for Onyc homycosis Please call patient to schedule an appointment Referring Physician: Zaheer Castro, Family Medicine, Encounter Date: 07/17/2023 Physical Therapist Referral for Tendinitis of right supraspinatus tendon *Please call pt to schedule* Referring Physician: Zaheer Castro [facility], Encounter Date: 09/15/2023 Orthopedic Surgeon Referral for Pain of right knee region chronic right knee pain , inner . Please eval and treat. Please call patient to schedule an appointment. thank you Referring Physician: Zaheer Castro [facility], Encounter Date: 01/21/2024 Caramel Cutter Machine Referral for Aller gic rhinitis allergic rhinitis , nothing seems to help . I ordered a food allergen panel and a respiratory allergen blood panel . Please call patient to schedule an appointment. Thank you Referring Physician: Zaheer Castro [facility], Encounter Date: 01/21/2024 Skein Winding Operator Referral for Co ngestive heart failure (wait on more labs/note)CHF , chest pains . Please call patient to schedule an appointment. Thank you. Referring Physician: Zaheer Castro [facility], Encounter Date: 08/26/2024 Results Created Date Observation Date Name Description Value Unit Range Abnormal Flag Note LastModifiedBy Organization Detail LastModifiedTime 12/26/19 24 12/26/2023 urina lysis , dipst ick Leukocytes (reference range: negative jose miguel/ l) Negati ve Not Available [address], [place], [address], 12/26/2023 12:06:52 12/26/19 24 12/26/2023 urina lysis , dipst ick Nitrite (reference rage: negative mg/dl) negati ve Not Available [address], [place], [address], 12/26/2023 12:06:52 12/26/1912/26/2023 urina lysis , dipst ick Urobilinogen (reference range: 0.2-1 mg/dl) 0.2 Not Available [address], [place], [address], 12/26/2023 12:06:52 12/26/19 24 12/26/2023 urina lysis , dipst ick Protein (reference range: negative mg/dl) Trace Not Available [address], [place], [address], 12/26/2023 12:06:52 12/26/19 24 12/26/2023 urina lysis , dipst ick pH (reference range: 5-7) 6.0 Not Available [address], [place], [address], 12/26/2023 12:06:52 12/26/19 24 12/26/2023 urina lysis , dipst ick Blood (reference range: negative Kirk/ l) Negati ve Not Available [address], [place], [address], 12/26/2023 12:06:52 12/26/19 24 12/26/2023 urina lysis , dipst ick Specific Soddy Daisy (reference range: 1.005-1.030) 1.030 Not Available [address], [place], [address], 12/26/2023 12:06:52 12/26/19 24 12/26/2023 urina lysis , dipst ick Ketone (reference range: negative mg/dl) Negati ve Not Available [address], [place], [address], 12/26/2023 12:06:52 12/26/19 24 12/26/2023 urina lysis , dipst ick Bilirubin (reference range: negative mg/dl) Small Not Available [address], [place], [address], 12/26/2023 12:06:52 12/26/19 24 12/26/2023 urina lysis , dipst ick Glucose (reference range: negative mg/dl) Negati ve Not Available [address], [place], [address], 12/26/2023 12:06:52 12/26/19 24 12/26/2023 urina lysis , dipst ick Appearance Slight ly Cloudy Not Available [address], [place], [address], 12/26/2023 12:06:52 12/26/19 24 12/26/2023 urina lysis , dipst ick Color Dark Yellow Not Available [address], [place], [address], 12/26/2023 12:06:52 01/21/20 24 01/21/2024 urina lysis , dipst ick Leukocytes (reference range: negative jose miguel/ l) Large Not Available [address], [place], [address], 01/21/2024 16:25:15 01/21/20 24 01/21/2024 urina lysis , dipst ick Nitrite (reference rage: negative mg/dl) negati ve Not Available [address], [place], [address], 01/21/2024 16:25:15 01/21/20 24 01/21/2024 urina lysis , dipst ick Urobilinogen (reference range: 0.2-1 mg/dl) 0.2 Not Available [address], [place], [address], 01/21/2024 16:25:15 01/21/20 24 01/21/2024 urina lysis , dipst ick Protein (reference range: negative mg/dl) Trace Not Available [address], [place], [address], 01/21/2024 16:25:15 01/21/20 24 01/21/2024 urina lysis , dipst ick pH (reference range: 5-7) 6.0 Not Available [address], [place], [address], 01/21/2024 16:25:15 01/21/20 24 01/21/2024 urina lysis , dipst ick Blood (reference range: negative Kirk/ l) Non-He molyze d: Trace Not Available [address], [place], [address], 01/21/2024 16:25:15 01/21/20 24 01/21/2024 urina lysis , dipst ick Specific Soddy Daisy (reference range: 1.005-1.030) 1.020 Not Available [address], [place], [address], 01/21/2024 16:25:15 01/21/20 24 01/21/2024 urina lysis , dipst ick Ketone (reference range: negative mg/dl) Negati ve Not Available [address], [place], [address], 01/21/2024 16:25:15 01/21/20 24 01/21/2024 urina lysis , dipst ick Bilirubin (reference range: negative mg/dl) Negati ve Not Available [address], [place], [address], 01/21/2024 16:25:15 01/21/20 24 01/21/2024 urina lysis , dipst ick Glucose (reference range: negative mg/dl) Negati ve Not Available [address], [place], [address], 01/21/2024 16:25:15 01/21/20 24 01/21/2024 urina lysis , dipst ick Appearance Slight ly Cloudy Not Available [address], [place], [address], 01/21/2024 16:25:15 01/21/20 24 01/21/2024 urina lysis , dipst ick Color Yellow Not Available [address], [place], [address], 01/21/2024 16:25:15 07/25/19 24 07/24/2023 MRI, shoul susie, w/o contr ast No observ ation record ed. [address] [facility] [address], [place], [address], 08/14/2023 11:24:31 10/10/19 24 10/10/2023 XR, hip + pelvi s, bilat eral No observ ation record ed. [email or web address] [place], [address], 04/07/2024 16:33:30 Result Notes None recorded. Problems Name Problem SNOMED Code Status Onset Date Resolution Date Notes Provider Name and Address Organization Details Recorded Time Rectal hemorrha ge 13147761 Active Not Available [facility] 4 15:29:26 Noninfec tious gastroen teritis 74305766 Completed Not Available [facility] 3 08:09:41 Chronic back pain 437159732 Active scoliosi s Not Available [facility] 4 15:29:26 Chronic obstruct radha pulmonar y disease 84367320 Active 2021 Not Available [facility] 4 15:29:26 Amenorrh ea 92596158 Completed Not Available [facility] 3 08:09:41 Asthma 268237733 Active Not Available [facility] 4 15:29:26 Anxiety disorder 741134267 Active Not Available [facility] 4 15:29:26 Gastroes ophageal reflux disease 763884824 Active Not Available [facility] 4 15:29:26 Gastroes ophageal reflux disease without esophagi tis 329894956 Active 2021 Not Available [facility] 4 15:29:26 Eruption 582430915 Active Not Available [facility] 4 15:29:26 Vaginal discharg e 978355600 Completed Not Available [facility] 3 08:09:42 Alpha-1- antitryp sin deficien cy 98719794 Active 2022 Not Available [facility] 4 15:29:27 Hypertri glycerid emia 220496014 Active 2018 Not Available [facility] 4 15:29:27 Vaginiti s 81508949 Completed Not Available [facility] 3 08:09:43 Vitamin D deficien cy 57671496 Active Not Available [facility] 4 15:29:27 Depressi ve disorder 40648340 Active ERIC Cm [address] [address], [place], [address] , [facility] 4 17:34:53 Sinusiti s 26722521 Active Not Available [facility] 4 15:29:27 Migraine 70418060 Active Not Available [facility] 4 15:29:27 Obesity 202141455 Active Not Available [facility] 4 15:29:27 Nausea 401850224 Active Not Available [facility] 4 15:29:27 Congesti ve heart failure 39020822 Active 2021 Not Available [facility] 4 15:29:27 Dysuria 63439704 Completed Mary Burciaga RN null, [place] [facility] 4 12:07:41 Vulvovag initis 15662442 Completed Not Available [facility] 3 08:09:45 Upper respirat ory infectio n 45655747 Completed Not Available [facility] 3 08:09:45 Carpal tunnel syndrome 94167393 Active Not Available [facility] 4 15:29:27 Essentia l hyperten deidra 93780207 Active Not Available [facility] 4 15:29:27 Strictur e of esophagu s 16550258 Active Not Available [facility] 4 15:29:27 Rhinitis 73804816 Active Not Available [facility] 4 15:29:27 Dyspareu candelaria 71442316 Completed Not Available [facility] 3 08:09:47 Candidal vulvovag initis 05533804 Completed Not Available [facility] 3 08:09:47 Obstruct radha sleep apnea syndrome 45304021 Active 2021 Not Available [facility] 4 15:29:27 Irritabl e bowel syndrome characte rized by constipa tion 562363458 Active 2022 Not Available [facility] 4 15:29:27 Scoliosi s deformit y of spine 459468545 Active 2022 Not Available [facility] 4 15:29:27 Hyperlip idemia 58265252 Active 2022 Not Available [facility] 4 15:29:27 Obese 055382782 Active 2022 Not Available [facility] 4 15:29:27 Restless legs 00028629 Active 2022 Not Available [facility] 4 15:29:27 Vitamin D below referenc e range 854370185 Active 2022 Not Available [facility] 4 15:29:26 Injury of right shoulder 15657823121 293954 Active 2022 Not Available [facility] 4 15:29:26 Edema 011388668 Active 2022 Not Available [facility] 4 15:29:26 Allergic rhinitis 28386124 Active 2023 ERIC Cm [address], [place], [address] , [place] [facility] 4 11:10:14 Onychomy cosis 784390514 Active 2023 ERIC Cm [address], [address], [place], [address] , [employer] [place] [facility] 4 09:58:57 Traumati c tear of right supraspi natus tendon Active 2023 ERIC Cm [address], [address], [place], [address] , [employer] [place] [facility] 4 10:05:07 Bronchit is 21764187 Active 2023 ERIC Cm [address], [address], [place], [address] , [employer] [facility] [employer] [facility] 4 10:09:27 Cough 59457680 Active 2023 ERCI Cm [address], [address], [place], [address] , [employer] [place] [facility] 4 15:24:12 Painful urging to urinate 00917743 Active 2023 ERIC Cm [address], [address], [place], [address] , [employer] [place] [facility] 4 17:14:06 Tendinit is of right supraspi natus tendon 67561366987 466828 Active 2023 ERIC Cm [address], [address], [place], [address] , [place] [facility] 4 11:33:08 Bilatera l hip joint pain 98641699539 969601 Active 2023 ERIC Cm [address], [address], [place], [address] , [facility] 4 11:58:28 Dysuria 33449251 Active 2023 Mary Burciaga RN null, [facility] 4 12:07:41 Right flank pain 256293123 Active 2023 Mary Burciaga RN null, [facility] 4 16:25:29 Pain of right knee region 60009264460 4105 Active 2023 ERIC Cm [address], [address], [place], [address] , [facility] 4 16:54:41 Abdomina l pain 90271610 Active 2023 ERIC Cm [address], [place], [address] , [facility] 4 19:01:21 Low back pain 692670752 Active 2024 ERIC Cm [address], [place], [address] , [facility] 5 15:41:40 Notes:[facility] home sleep study 03/29/22 AHI = 95, supine AHI = 102 [facility] titration sleep study 02/04/23 sleep onset = 5.5 minutes, REM onset = 115 minutes, [employer] small Brevida nasal mask @ 15 cmH2O Medical History: Anxiety Conjunctivitis/Rhinosinusitis to multiple environmental allergens Eosinophils 520/uL IgE 35 IU/mL AAT PiMS 142 mg% Mod COPD Bilateral pulmonary nodules Obesity with very severe OSAHS, AHI = 95, 03/29/22, on CPAP c/o IVRC Hypertension Mixed hyperlipidemia CHF LAKSHMI Constipation-predominant IBS Vit D deficiency Right supraspinatus tear CTS Scoliosis Procedure History: Cholecystectomy 2004 EGD with dilatation 2019 Problem Notes None recorded. Procedures Surgical History Date Name Laterality Status Provider Name and Address Organization Details Recorded Time section completed Manfred Quinones MA [facility] 11/12/2022 11:52:50 tooth extraction, complete lower completed [facility] 11/12/2022 11:53:18 procedure on gallbladder completed [facility] 11/12/2022 11:53:34 Imaging Results Imaging Date Name Status LastModified by Organiz ation Details LastModified Time 07/24/2023 MRI, shoulder, w/o contrast completed [email or web address] [address], [place], [address], 08/14/2023 11:24:31 10/10/2023 XR, hip + pelvis, bilateral completed [address] [place], [address], 04/07/2024 16:33:30 Procedure Notes None recorded. Medical Equipment None Reported. Allergies Allergen ID Allergen Name Allergen Category Reaction Reaction Severity Criticality Documentation Date Start Date Code Code System Note Provider Name and Address Organization Details Recorded Time wasp venoms environme nt Not available Not available Not available 07/17/2022 87814 RxNorm Not Available [facility] 3 08:15:18 28393 Tylenol with Codeine medicatio n Not available Not available Not available 07/17/2022 82097 6 RxNorm asthm a flare s Not Available [facility] 3 08:15:18 63472 Topamax medicatio n Not available Not available Not available 07/17/2022 85094 3 RxNorm Not Available [facility] 3 08:15:18 65060 Symbicort medicatio n Not available Not available Not available 07/17/2022 29366 8 RxNorm Not Available [facility] 3 08:15:18 67604 Substance with sulfonami de structure and antibacte rial mechanism of action (substanc e) medicatio n hives severe Not available 07/17/2022 67409 8003 SNOMED Not Available [facility] 3 08:15:18 89575 raspberry extract food,medi cation Not available Not available Not available 07/17/2022 84973 69 RxNorm swel ls gland s Not Available [facility] 3 08:15:18 78142 beclometh asone dipropion ate medicatio n hives Not available Not available 07/17/2022 1348 RxNorm Not Available [facility] 3 08:15:18 32974 pomegrana te fruit extract food rash severe Not available 07/17/2022 67187 01 RxNorm Not Available [facility] 3 08:15:18 32098 Product containin g penicilli n (product) medicatio n Not available Not available Not available 07/17/2022 31714 8001 SNOMED Not Available [facility] 3 08:15:18 62483 peanut oil food,medi cation Not available Not available Not available 07/17/2022 12433 RxNorm Not Available [facility] 3 08:15:19 55079 peanut allergeni c extract food,medi cation Not available Not available Not available 07/17/2022 31234 8 RxNorm Not Available [facility] 3 08:15:19 68488 Non-stero idal anti-infl ammatory agent (product) medicatio n Not available Not available Not available 07/17/2022 58634 005 SNOMED Not Available [facility] 3 08:15:19 32812 morphine medicatio n Not available Not available Not available 07/17/2022 7052 RxNorm Not Available [facility] 3 08:15:19 19704 Monistat Simple Therapy medicatio n Not available Not available Not available 07/17/2022 53478 72 RxNorm Not Available [facility] 3 08:15:19 11791 rashaad extract food Not available Not available Not available 07/17/2022 85356 32 RxNorm swel ls gland s Not Available [facility] 3 08:15:19 66114 latex environme nt,medica tion Not available Not available Not available 07/17/2022 79167 91 RxNorm Not Available [facility] 3 08:15:19 13619 hornet venom environme nt Not available Not available Not available 07/17/2022 60511 UNK Not Available [facility] 3 08:15:19 35088 fish derived food,medi cation Not available Not available Not available 07/17/2022 35692 UNK tilap ia Not Available [facility] 3 08:15:19 46317 codeine medicatio n Not available Not available Not available 07/17/2022 2670 RxNorm TYLEN OL 3 - COATE D Not Available [facility] 3 08:15:20 70359 blueberry extract food respirato ry distress severe Not available 07/17/2022 42535 29 RxNorm Not Available [facility] 3 08:15:20 55177 blue dye medicatio n Not available Not available Not available 07/17/2022 75644 UNK Not Available [facility] 3 08:15:20 74496 blackberr y allergeni c extract food Not available Not available Not available 07/17/2022 12665 8 RxNorm Not Available [facility] 3 08:15:20 90886 honey bee venom medicatio n Not available Not available Not available 07/17/2022 87951 7 RxNorm Not Available [facility] 3 08:15:20 22549 aspirin medicatio n Not available Not available Not available 07/17/2022 1191 RxNorm Not Available [facility] 3 08:15:20 25864 Cynara preparati on food Not available Not available Not available 07/17/2022 26601 0 RxNorm Not Available [facility] 3 08:15:20 32668 amoxicill in medicatio n Not available Not available Not available 07/17/2022 723 RxNorm Not Available [facility] 3 08:15:20 56310 tramadol medicatio n rash severe Not available 07/17/2022 20856 RxNorm Not Available [facility] 3 08:15:20 82416 ferrara king food Not available Not available Not available 11/12/2022 93280 UNK NATALYA Tucker, [place] [facility] 3 11:40:03 [id number] plantain preparati on food Not available Not available Not available 11/12/2022 [id number] RxNorm NATALYA [place], [place] [employer] [facility] 3 11:40:17 Medications Name Sig Start Date Stop Date Status Note LastModified by Organization Details LastModified Time lidocain/ sucralfat e/antacid 113 TAKE 5ML BY MOUTH UP TO FOUR TIMES DAILY NEEDED FOR 5-7 DAYS 11/12 completed Not Available Not Available Not Available Prescript ion - Prior Authoriza tion Request completed Not Available Not Available Not Available losartan 50 mg tablet TAKE 1 TABLET BY MOUTH EVERY DAY active Not Available Not Available No t Available cyclobenz aprine 10 mg tablet TAKE ONE TABLET 3 TIMES DAILY NEEDED 11/12 completed Not Available Not Available Not Available furosemid e 40 mg tablet TAKE 1 TABLET BY MOUTH 3 times daily for 10 days, then go back to twice daily active Not Available Not Available No t Available methocarb duke 500 mg tablet TK 1 T PO Q 8 H PRN P 09/15 completed Not Available Not Available Not Available buspirone 5 mg tablet TAKE 1 TABLET BY MOUTH TWICE DAILY 11/12 completed Not Available Not Available Not Available lamotrigi ne 150 mg tablet TAKE 1/2 TABLET TWICE DAILY 09/15 completed Not Available Not Available Not Available Qvar 80 mcg/actua tion Metered Aerosol oral inhaler INHALE 2 PUFFS BY MOUTH TWICE DAILY 12/25 completed Not Available Not Available Not Available bupropion HCl SR 150 mg tablet,12 hr sustained -release 12/25 completed Not Available Not Available Not Available azelastin e 0.05 % eye drops INSTILL 1 DROP INTO BOTH EYES TWICE DAILY completed Not Available Not Available Not Available nystatin 100,000 unit/mL oral suspensio n SHAKE LIQUID AND TAKE 5 ML BY MOUTH FOUR TIMES DAILY FOR 6 DAYS 11/12 completed Not Available Not Available Not Available clonidine HCl 0.1 mg tablet TAKE ONE TABLET TWICE DAILY AND MAY TAKE 1 EXTRA TABLET DAILY NEEDED 09/15 completed Not Available Not Available Not Available prednison e 10 mg tablet TAKE 4 TABLETS BY MOUTH DAILY FOR 3 DAYS 3 TABLETS DAILY FOR 2 DAYS 2 TABLETS DAILY FOR 1 DAY 1 TABLET DAILY FOR 1 DAY 01/20 completed Not Available Not Available Not Available ipratropi um 0.5 mg-albute rol 3 mg (2.5 mg base)/3 mL nebulizat ion soln USE 1 VIAL IN THE NEBULIZE R 4 TIMES A DAY 09/03 completed Not Available Not Available Not Available clindamyc in HCl 300 mg capsule TAKE 1 CAPSULE BY MOUTH EVERY 6 HOURS FOR 10 DAYS 11/12 completed Not Available Not Available Not Available albuterol sulfate 2.5 mg/3 mL (0.083 %) solution for nebulizat ion USE 1 VIAL VIA NEBULIZE R EVERY 4 HOURS NEEDED FOR WHEEZING OR SHORTNES S OF BREATH active Not Available Not Available No t Available ciproflox acin 750 mg tablet TAKE 1 TABLET BY MOUTH TWICE DAILY 11/12 completed Not Available Not Available Not Available ammonium lactate 12 % lotion HU EXT TO FEET BID 11/12 completed Not Available Not Available Not Available triamcino lone acetonide 0.5 % topical cream APPLY GRAM TOPICALL Y TO THE AFFECTED AREA TWICE DAILY 11/12 completed Not Available Not Available Not Available cetirizin e 10 mg tablet TAKE 1 TABLET BY MOUTH DAILY active Not Available Not Available No t Available azithromy dusty 250 mg tablet take 2 pills daily for 1 day , then 1 tab daily for 4 days completed Not Available Not Available Not Available ibuprofen 800 mg tablet TAKE 1 TABLET BY MOUTH EVERY 8 HOURS WITH FOOD NEEDED 11/12 completed Not Available Not Available Not Available amitripty line 75 mg tablet 12/25 completed Not Available Not Available Not Available fluconazo le 150 mg tablet TAKE 1 TABLET BY MOUTH EVERY 72 HOURS 11/12 completed Not Available Not Available Not Available benzonata te 200 mg capsule TAKE 1 CAPSULE BY MOUTH NIGHTLY 01/20 completed Not Available Not Available Not Available doxepin 25 mg capsule TAKE 1-2 CAPSULES AT BEDTIME DIRECTED 09/15 completed Not Available Not Available Not Available sumatript an 100 mg tablet TK 1 T PO ONCE PRF MIGRAINE FOR UP TO ONE DOSE active Not Available Not Available No t Available hydrocodo ne 5 mg-acetam inophen 325 mg tablet active Not Available Not Available Not Available Nystop 100,000 unit/gram topical powder APPLY TOPICALL Y TO THE AFFECTED AREA TWICE DAILY 11/12 completed Not Available Not Available Not Available sucralfat e 100 mg/mL oral suspensio n 11/12 completed Not Available Not Available Not Available fluconazo le 200 mg tablet TAKE 1 TABLET BY MOUTH EVERY WEEK. active Not Available Not Available No t Available naltrexon e 50 mg tablet 12/25 completed Not Available Not Available Not Available metronida zole 0.75 % (37.5 mg/5 gram) vaginal gel IVB FOR 5 DAYS 07/13 completed Not Available Not Available Not Available ondansetr on HCl 4 mg tablet TAKE 1 TABLET BY MOUTH EVERY 8 HOURS NEEDED 11/12 completed Not Available Not Available Not Available famotidin e 40 mg tablet TK 1 T PO QD 12/08 completed Not Available Not Available Not Available prednison e 20 mg tablet TAKE 2 TABLETS BY MOUTH DAILY FOR 5 DAYS completed Not Available Not Available Not Available cromolyn 4 % eye drops 12/08 completed Not Available Not Available Not Available clindamyc in HCl 150 mg capsule 11/12 completed Not Available Not Available Not Available venlafaxi ne ER 150 mg capsule,e xtended release 24 hr active Not Available Not Available Not Available hydroxyzi ne pamoate 50 mg capsule TK 1 C PO TID PRN FOR ANXIETY 09/15 completed Not Available Not Available Not Available topiramat e 25 mg tablet 09/03 completed Not Available Not Available Not Available potassium chloride ER 10 mEq tablet,ex tended release TAKE 1 TABLET BY MOUTH EVERY DAY FOR 10 DAYS 01/20 completed Not Available Not Available Not Available hydroxyzi ne HCl 50 mg tablet active Not Available Not Available No t Available fexofenad ine 180 mg tablet 11/12 completed Not Available Not Available Not Available ciproflox acin 250 mg tablet TAKE ONE TABLET TWICE DAILY FOR 5 DAYS. 05/06 completed Not Available Not Available Not Available prochlorp erazine maleate 10 mg tablet active Not Available Not Available Not Available divalproe x 500 mg tablet,de layed release TK ONE T PO BID active Not Available Not Available No t Available ciproflox acin 500 mg tablet TAKE 1 TABLET BY MOUTH EVERY 12 HOURS FOR 10 DAYS 08/26 completed Not Available Not Available Not Available sulfameth oxazole 800 mg-trimet hoprim 160 mg tablet TAKE 1 TABLET BY MOUTH TWICE DAILY 11/12 completed Not Available Not Available Not Available hydrocodo ne 10 mg-acetam inophen 325 mg tablet TAKE 1 TABLET BY MOUTH TWICE DAILY NEEDED active Not Available Not Available No t Available doxycycli ne monohydra te 100 mg tablet TAKE 1 TABLET BY MOUTH TWICE DAILY completed Not Available Not Available Not Available tramadol 50 mg tablet TK 1 T PO Q 8 H PRN 11/12 completed Not Available Not Available Not Available guaifenes in 100 mg/5 mL oral liquid TAKE 10 ML BY MOUTH EVERY 4 HOURS NEEDED FOR COUGH active Not Available Not Available No t Available triamcino lone acetonide 0.1 % topical cream APPLY TO THE AFFECTED AREA TWICE DAILY 11/12 completed Not Available Not Available Not Available bupropion HCl SR 100 mg tablet,12 hr sustained -release active Not Available Not Available Not Available butalbita l-acetami nophen-ca ffeine 50 mg-325 mg-40 mg tablet TAKE 1 TABLET BY MOUTH TWICE DAILY NEEDED FOR HEADACHE active Not Available Not Available No t Available ondansetr on 8 mg disintegr ating tablet DISSOLVE 1 TABLET ON THE TONGUE EVERY DAY NEEDED active Not Available Not Available No t Available lamotrigi ne 25 mg tablet TK 2 TS PO BID DIRECTED FOR MOOD STABILIZ ER 12/25 completed Not Available Not Available Not Available ketorolac 0.5 % eye drops 2019 completed Not Available Not Available Not Available prednison e 10 mg tablets in a dose pack FOLLOW PACKAGE DIRECTIO NS completed Not Available Not Available Not Available nystatin- triamcino lone 100,000 unit/gram -0.1 % topical ointment APPLY TO AFFECTED AREAS BID FOR 14 DAYS active Not Available Not Available No t Available carbamaze pine 200 mg tablet active Not Available Not Available No t Available ziprasido ne 20 mg capsule TK ONE C PO QD WITH BREAKFAS T active Not Available Not Available No t Available potassium chloride ER 20 mEq tablet,ex tended release(p art/cryst ) TAKE 1 TABLET BY MOUTH EVERY DAY active Not Available Not Available No t Available famotidin e 20 mg tablet TAKE 1 TABLET BY MOUTH EVERY DAY 11/12 completed Not Available Not Available Not Available amitripty line 25 mg tablet active Not Available Not Available No t Available trazodone 100 mg tablet TAKE ONE TABLET DAILY AT BEDTIME 09/15 completed Not Available Not Available Not Available carbamaze pine ER 200 mg tablet,ex tended release,1 2 hr active Not Available Not Available Not Available benzonata te 100 mg capsule TAKE 2 CAPSULES BY MOUTH THREE TIMES DAILY 01/20 completed Not Available Not Available Not Available cephalexi n 500 mg capsule TAKE 1 CAPSULE BY MOUTH TWICE DAILY FOR 7 DAYS completed Not Available Not Available Not Available pantopraz ole 40 mg tablet,de layed release active Not Available Not Available Not Available erythromy dusty 5 mg/gram (0.5 %) eye ointment 12/08 completed Not Available Not Available Not Available nortripty line 10 mg capsule TAKE 2 TO 3 CAPSULES BY MOUTH AT BEDTIME NEEDED 08/26 completed Not Available Not Available Not Available oseltamiv ir 75 mg capsule TAKE 1 CAPSULE BY MOUTH EVERY 12 HOURS FOR 4 DAYS active Not Available Not Available No t Available triamcino lone acetonide 0.1 % topical ointment APPLY TO ABDOMINA L SKIN FOLDS TOPICALL Y EVERY 12 HOURS NEEDED 11/12 completed Not Available Not Available Not Available nystatin 100,000 unit/gram topical cream APPLY TOPICALL Y TO THE AFFECTED AREA TWICE DAILY 11/12 completed Not Available Not Available Not Available ranitidin e 150 mg tablet 09/03 completed Not Available Not Available Not Available buspirone 10 mg tablet TAKE 1 TABLET BY MOUTH TWICE DAILY active Not Available Not Available No t Available lisinopri l 10 mg tablet TAKE 1 TABLET BY MOUTH EVERY DAY 11/12 completed Not Available Not Available Not Available prednison e 50 mg tablet TAKE ONE TABLET DAILY 05/06 completed Not Available Not Available Not Available lidocaine 5 % topical patch UNWRAP& APPLY 1 PATCH TO AFFECTED AREA NEEDED(M AY APPLY TO SHOULDER , KNEE&AMINAH K)& REMOVE AFTER 12 HOURS DIRECTED ( CAN USE 3 PATCHES ON 1 LOCATON) 08/26 completed Not Available Not Available Not Available promethaz ine 25 mg tablet TAKE 1 TABLET EVERY SIX HOURS NEEDED FOR NAUSEA 06/29 completed Not Available Not Available Not Available losartan 25 mg tablet TAKE 1 TABLET BY MOUTH EVERY DAY 11/12 completed Not Available Not Available Not Available Advair Diskus 250 mcg-50 mcg/dose powder for inhalatio n USE 1 INHALATI ON BY MOUTH TWICE DAILY 06/24 completed Not Available Not Available Not Available nicotine 21 mg/24 hr daily transderm al patch Apply 1 patch every day by transder mal route for 30 days. active Not Available Not Available No t Available hydrochlo rothiazid e 12.5 mg capsule TAKE ONE CAPSULE BY MOUTH DAILY 11/12 completed Not Available Not Available Not Available gabapenti n 300 mg capsule TAKE 2 CAPSULES BY MOUTH THREE TIMES DAILY active Not Available Not Available No t Available sertralin e 25 mg tablet 11/12 completed Not Available Not Available Not Available omeprazol e 20 mg capsule,d elayed release TAKE ONE CAPSULE TWICE DAILY 11/12 completed Not Available Not Available Not Available Banophen 25 mg capsule TAKE 1 TO 2 CAPSULES BY MOUTH AT BEDTIME NEEDED 2024 active Not Available Not Available Not Avai lable diltiazem CD 120 mg capsule,e xtended release 24 hr TAKE 1 CAPSULE BY MOUTH EVERY NIGHT 08/26 completed Not Available Not Available Not Available amoxicill in 250 mg capsule active Not Available Not Available Not Available hydroxyzi ne HCl 25 mg tablet 11/12 completed Not Available Not Available Not Available mupirocin 2 % topical ointment APPLY TOPICALL Y TO THE AFFECTED AREA DAILY 11/12 completed Not Available Not Available Not Available furosemid e 20 mg tablet TAKE 1 TABLET BY MOUTH DAILY 11/12 completed Not Available Not Available Not Available ziprasido ne 40 mg capsule TAKE 1 CAPSULE DAILY AT BEDTIME FOR 5 DAYS, THEN 1 CAPSULE TWICE DAILY THEREAFT ER 09/15 completed Not Available Not Available Not Available lisinopri l 10 mg-hydroc hlorothia zide 12.5 mg tablet TAKE ONE TABLET DAILY 12/22 completed Not Available Not Available Not Available levofloxa dusty 500 mg tablet TK 1 T PO QD 07/13 completed Not Available Not Available Not Available levofloxa dusty 750 mg tablet TAKE 1 TABLET BY MOUTH EVERY DAY 11/12 completed Not Available Not Available Not Available methylpre dnisolone 4 mg tablets in a dose pack FPD active Not Available Not Available Not Available albuterol sulfate HFA 90 mcg/actua tion aerosol inhaler INHALE 2 PUFFS BY MOUTH EVERY 4 HOURS NEEDED FOR WHEEZING OR SHORTNES S OF BREATH 2024 active Not Available Not Available Not Avai lable Vitamin D2 1,250 mcg (50,000 unit) capsule Take 1 capsule every week by oral route. 08/26 completed Not Available Not Available Not Available ondansetr on 4 mg disintegr ating tablet DISSOLVE 1 TABLET ON THE TONGUE EVERY 8 HOURS NEEDED FOR NAUSEA OR VOMITING 11/12 completed Not Available Not Available Not Available cefdinir 300 mg capsule TAKE 1 CAPSULE BY MOUTH TWICE DAILY FOR 7 DAYS completed Not Available Not Available Not Available losartan 100 mg tablet TAKE 1 TABLET BY MOUTH EVERY DAY 11/12 completed Not Available Not Available Not Available fluoxetin e 20 mg capsule TK ONE C PO QD active Not Available Not Available No t Available fluticaso ne propionat e 50 mcg/actua tion nasal spray,viet pension SHAKE LIQUID AND USE 1 SPRAY IN EACH NOSTRIL TWICE DAILY 11/12 completed Not Available Not Available Not Available doxycycli ne hyclate 100 mg tablet TAKE 1 TABLET BY MOUTH TWICE DAILY AFTER MEALS active Not Available Not Available No t Available Hibiclens 4 % topical liquid 11/12 completed Not Available Not Available Not Available lamotrigi ne 100 mg tablet 12/25 completed Not Available Not Available Not Available metoclopr amide 10 mg tablet Take 1 tablet 4 times a day by oral route. 2012 active REPORTED Not Available Not Available Not Avai lable oxycodone 5 mg tablet 11/12 completed Not Available Not Available Not Available hydroxyzi ne pamoate 25 mg capsule active Not Available Not Available Not Available neomycin- polymyxin -hydrocor t 3.5 mg-10,000 unit/mL-1 % ear drops,viet p SHAKE LIQUID AND INSTILL 2 DROPS IN BOTH EARS FOUR TIMES DAILY active Not Available Not Available No t Available cholecalc iferol (vitamin D3) 25 mcg (1,000 unit) capsule Take 1 capsule every day by oral route with meals for 30 days. 2022 active Not Available Not Available Not Avai lable Lice Killing (permethr in) 1 % topical liquid APPLY A SUFFICIE NT AMOUNT OF SHAMPOO BY TOPICAL ROUTE ONCE ALLOW TO REMAIN ON HAIR FOR 10 MINUTES BEFORE RINSING OFF WITH WATER active Not Available Not Available No t Available bupropion HCl SR 200 mg tablet,12 hr sustained -release TK 1 T PO QAM active Not Available Not Available No t Available azithromy dusty 500 mg tablet Take 1 tablet every day by oral route for 5 days. active Not Available Not Available No t Available ezetimibe 10 mg tablet TAKE 1 TABLET BY MOUTH EVERY DAY active Not Available Not Available No t Available Premarin 1.25 mg tablet Take 1 tablet every day by oral route. active Not Available Not Available No t Available lansopraz ole 30 mg delayed release,d isintegra ting tablet Take 1 tablet every day by oral route in the morning for 30 days. 11/12 completed Not Available Not Available Not Available bupropion HCl XL 300 mg 24 hr tablet, extended release active Not Available Not Available Not Available topiramat e 50 mg tablet TK 1 T PO BID active Not Available Not Available No t Available nitrofura ntoin monohydra te/macroc rystals 100 mg capsule TAKE 1 CAPSULE BY MOUTH 2 TIMES A DAY FOR 7 DAYS 11/12 completed Not Available Not Available Not Available omega-3 acid ethyl esters 1 gram capsule Take 2 capsules twice a day by oral route after meals for 30 days. 08/26 completed Not Available Not Available Not Available Flovent HFA 44 mcg/actua tion aerosol inhaler active Not Available Not Available Not Available fenofibra te 160 mg tablet Take 1 tablet every day by oral route in the morning for 30 days. active Not Available Not Available No t Available Benadryl active Not Available Not Avai lable Not Available Butalbita l Compound 50 mg-325 mg-40 mg tablet TAKE 1-2 TABLET BY ORAL ROUTE EVERY 4 HOURS NEEDED NOT TO EXCEED 6 TABLETS PER 24HRS... .MUST LAST 2 MONTHS 2012 active Not Available Not Available Not Avai lable Symbicort 160 mcg-4.5 mcg/actua tion HFA aerosol inhaler Inhale 2 puffs twice a day by inhalati on route. 02/27 completed Not Available Not Available Not Available Symbicort 80 mcg-4.5 mcg/actua tion HFA aerosol inhaler INL 2 PFS PO BID 11/12 completed Not Available Not Available Not Available omeprazol e 20 mg tablet,de layed release Take 1 tablet every day by oral route for 30 days. 12/08 completed Not Available Not Available Not Available cetirizin e 10 mg capsule Take 1 capsule every day by oral route for 30 days. 12/25 completed duplicat e Not Available Not Available Not Available Dulera 200 mcg-5 mcg/actua tion HFA aerosol inhaler INHALE 2 PUFFS BY MOUTH TWICE DAILY. RINSE MOUTH WITH WATER AFTER USE. DO NOT SWALLOW 2024 active Not Available Not Available Not Avai lable Dulera 100 mcg-5 mcg/actua tion HFA aerosol inhaler INHALE 2 PUFFS BY MOUTH TWICE DAILY DIRECTED 11/12 completed Not Available Not Available Not Available Nexplanon 68 mg subdermal implant Inject 1 implant by subcutan eous route. active Not Available Not Available No t Available Chantix Starting Month Box 0.5 mg (11)-1 mg (42) tablets in dose pack Take twice a day by oral route. active take as directed Not Available Not Available Not Available EpiPen 2-Junaid 0.3 mg/0.3 mL injection , auto-inje ctor take as directed 2024 active Not Available Not Available Not Avai lable potassium chloride ER 20 mEq tablet,ex tended release TAKE 1 TABLET BY MOUTH EVERY DAY 2023 completed Not Available Not Available Not Available Spiriva Respimat 2.5 mcg/actua tion solution for inhalatio n INHALE 2 PUFFS BY MOUTH EVERY DAY DIRECTED active Not Available Not Available No t Available fluticaso ne 113 mcg-salme terol 14 mcg/actua tion breath activated powdr 09/03 completed Not Available Not Available Not Available Vitals Date Recorded Body height Body mass index (BMI) Body weight Body temperature Respiratory rate Oxygen saturation Oxygen saturation in Arterial blood by Pulse oximetry Heart rate Systolic blood pressure Diastolic blood pressure Provider Name and Address Organization Details Last Updated DateTime 167.01 cm 52.4 kg/m2 874697. 74 g 97.7 [degF] 18 /min 98 % 98 % 71 /min 118 mm[Hg] 74 mm[Hg] Arely Gale RN [facility] [employer] [facility] 4 09:23:45 Date Recorded Body height Body mass index (BMI) Body weight Body temperature Respiratory rate Oxygen saturation Oxygen saturation in Arterial blood by Pulse oximetry Heart rate Systolic blood pressure Diastolic blood pressure Provider Name and Address Organization Details Last Updated DateTime 4 167.01 cm 54 kg/m2 216566. 67 g 97.3 [degF] 16 /min 99 % 99 % 81 /min 118 mm[Hg] 80 mm[Hg] Mary Burciaga RN [facility] [employer] [facility] 4 11:10:03 Date Recorded Body height Body mass index (BMI) Body weight Body temperature Heart rate Oxygen saturation Oxygen saturation in Arterial blood by Pulse oximetry Respiratory rate Systolic blood pressure Diastolic blood pressure Provider Name and Address Organization Details Last Updated DateTime 4 167.01 cm 51.6 kg/m2 145644. 78 g 97.6 [degF] 76 /min 97 % 97 % 18 /min 116 mm[Hg] 78 mm[Hg] Mary Burciaga RN [facility] [employer] [facility] 4 12:03:30 Date Recorded Body height Body mass index (BMI) Body weight Body temperature Heart rate Oxygen saturation Oxygen saturation in Arterial blood by Pulse oximetry Respiratory rate Systolic blood pressure Diastolic blood pressure Provider Name and Address Organization Details Last Updated DateTime 4 167.01 cm 51.1 kg/m2 687815 g 98.3 [degF] 75 /min 95 % 95 % 16 /min 122 mm[Hg] 76 mm[Hg] Mary Burciaga RN [facility] [employer] [facility] 4 16:24:40 Date Recorded Body height Body mass index (BMI) Body weight Body temperature Heart rate Oxygen saturation Oxygen saturation in Arterial blood by Pulse oximetry Systolic blood pressure Diastolic blood pressure Provider Name and Address Organization Details Last Updated DateTime 5 167.01 cm 53.8 kg/m2 339358. 07 g 97 [degF] 76 /min 97 % 97 % 118 mm[Hg] 84 mm[Hg] LALA Oconnor [facility] 14:41:25 Social History Question Answer Notes LastModified by Organizat ion Details LastModified Time Tobacco Smoking Status Former Smoker Not Available [employer] 07/17/2022 08:04:58 What Is Your Level Of Alcohol Consumption? Occasional [email or web address] Information not available 11/12/2022 What Is Your Level Of Caffeine Consumption? Moderate Information not available 11/12/2022 What Is Your Occupation? [employer] [id number] Information not available 07/17/2022 When Did You Quit Smoking? 1-5yearssincel astcigarette [id number] Information not available 07/17/2022 What Was The Date Of Your Most Recent Tobacco Screening? 04/01/2022 [id number] Information not available 07/17/2022 Do You Use Your Seat Belt Or Car Seat Routinely? No [email or web address] Information not available 11/12/2022 At What Age Did You Start Smoking Tobacco? 11 [id number] Information not available 07/17/2022 Do You Participate In Social Media? Yes [email or web address] Information not available 11/12/2022 Do You Feel Stressed (tense, Restless, Nervous, Or Anxious, Or Unable To Sleep At Night)? [id number] [email or web address] Information not available 11/12/2022 Do You Use Any Illicit Or Recreational Drugs? No [id number] Information not available 07/17/2022 Sex: Unknown Functional Status None recorded. Mental Status None recorded. Family History Relationship Description Onset Age of this Age Resolved Age Notes LastModified by Organization Details LastModified Time Father Hypertensive disorder Not available 10/18 11:49:59 Father Asthma [email or web address] Not availabl e 11/12/2022 11:50:24 Mother Hypertensive disorder [email or web address] Not available 10/18 11:49:59 Notes:kidney issues- father Medical History No medical history recorded. Gynecological HistoryNo gynecological history recorded. Obstetrics History GPAL:G 0 P 0 0 0 0 Past Encounters Encounter ID Performer Location Encounter Start Date Encounter Closed Date Diagnosis/Indication Diagnosis SNOMED-CT Code Diagnosis ICD10 Code Diagnosis Note [id number] [facility] [address] [place] [address] 04/01/2022 00:00:00 04/01/2022 21:50:33 [id number] [facility] Pulmonolo [facility]any [facility] [address] [place] [address] 05/27/2022 00:00:00 05/27/2022 13:27:21 [id number] ERIC [facility] [place] sawyer [address] [facility] [place] [address] 11/12/2022 11:27:02 11/12/2022 12:31:06 Migraine 55573130 G43.909 Vitamin D deficiency 347 81991 E55.9 Gastroesop hageal reflux disease 253621915 K21.9 Nausea 402300215 R11.0 Sleep apnea 94728231 G47 .30 Scoliosis deformity of spine 896144307 M41.9 Allergy to food 02339583 1 T78.1XXA Congestive heart failure 77794206 I50.9 Stricture of esophagus 75404783 K22.2 Hyperlipidemia 58386100 E78.5 Pain of ri ght knee region 1255370209 20417 M25.561 Obese 324137282 E66.9 At [facility] risk of nutritional deficit 272057074 Z91.89 Restless legs 63862592 G 25.81 Asthma 175509350 J45.90 9 Allergy to wasp venom 42 9481884 Z91.038 [id number] ERIC [facility] [place] [address] [address] [place] [address] 12/10/2022 10:09:54 12/10/2022 10:58:28 Asthma 703803437 J45.909 Failure to lose weight 28317487 R63.8 Insomnia 240068618 G47.0 0 Vitamin D below reference range 080661742 E55.9 Strain of muscle of right shoulder 5932904354 5350075 S46.911A Chronic back pain 558988 002 M54.9 Depressive disorder 3548 9007 F32.A Obesity 845300416 E66.9 [id number] LINA TovarP-BC [facility] [place] [address] [place] [address] 12/11/2022 11:20:15 12/11/2022 12:34:58 Severe persistent asthma 880158064 J45.50 Continue Dulera 200 two puffs BID with aerochambe rReviewed use and techniqueN ebulizer for PRN useContinu e to follow with Dr Julio Chronic ob structive pulmonary disease 97108225 J44.9 PFT completed 04/15/22 with obstructio nAdd Spiriva Respimat 2.5 to DuleraSamp les to patient todayInstr ucted on technique Alpha-1-an titrypsin deficiency 89425954 E88.01 MS with normal levels (142 in 03/2022)Sh e is not a smokerExte nsive discussion about genetic abnormalit y:People with the MS genotype do not have severe AATD but are genetic carriersTh e MS genotype is not associated with an increased risk for lung disease in non-smoker s.Higher risk is seen in MS individual s who smoke.Sabra use Alpha-1 is a genetic condition, relatives are at increased risk to also have abnormal alpha-1 genes.Repr oductive partners of people with abnormal alpha-1 genes should be offered testing to assess risk to children.S he is aware to notify her siblings/c jayna Obstructiv e sleep apnea syndrome 37548662 G47.33 + home studyLikel y also OHSDiscuss ed the risks of uncorrecte d NELSON, including deathHas not had titration yet, email sent to the sleep lab by staff today Chronic cough 38259514 R 05.3 BNP, IGGs, Quantifero n GOLD, eosinophil s, IGE all normalEcho cardiogram completed this yearWeight loss Congestive heart failure 03284475 I50.9 Follows cardiology Dyspnea on exertion 6084 5006 R06.09 Multifacto ral Body mass index 40+ - severely obese 565513759 Z68.42 Has bariatric referral Dependence on supplemental oxygen 6561224756 07 Z99.81 Reports she was discharged from [facility] in September with O2I do not have these records, staff requested Pneumonia 295865905 J18. 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 cm per dictationC T chest completed 03/2022 with multiple nodules:LL L density has decreased in size to 3cmAlso with GGO to LUL7mm RLL4mm RLL pleural svvaz4tw or less to MADDIE (six of them)5mm to LUL5mm to LLLUnsure if she has had recent CT imaging [id number] ERIC Cm [facility] [place] [address] [place] [address] 01/15/2023 14:15:51 01/15/2023 14:19:21 [id number] ERIC Cm [facility] [place] [address] [facility] [place] [address] 02/04/2023 09:57:22 02/04/2023 10:25:46 Migraine 82501376 G43.909 Allergy to food 84941651 1 T78.1XXA Asthma 308946389 J45.90 9 Pain of ri ght knee region 5973771059 00204 M25.561 Pain of le ft knee region 4267066428 65173 M25.562 Restless legs 14819118 G 25.81 Shoulder strain 60667573 4 S46.911D [id number] Angelia Cuellar, LAYOUT OPERATOR-[facility] Pul[facility] [address] [place] [address] 02/04/2023 10:39:47 02/04/2023 11:25:23 Severe persistent asthma 672918550 J45.50 Continue Dulera 200 two puffs BID with aerochambe rReviewed use and techniqueN ebulizer for PRN useContinu e to follow with Dr Julio Chronic ob structive pulmonary disease 65703583 J44.9 PFT completed 04/15/22 with obstructio nContinue Spiriva Respimat 2.5 - samples todaySampl es to patient todayInstr ucted on technique Alpha-1-an titrypsin deficiency 92389483 E88.01 MS with normal levels (142 in 03/2022)Sh e is not a smokerExte nsive discussion about genetic abnormalit y:People with the MS genotype do not have severe AATD but are genetic carriersTh e MS genotype is not associated with an increased risk for lung disease in non-smoker s.Higher risk is seen in MS individual s who smoke.Sabra use Alpha-1 is a genetic condition, relatives are at increased risk to also have abnormal alpha-1 genes.Repr oductive partners of people with abnormal alpha-1 genes should be offered testing to assess risk to children.S he is aware to notify her siblings/c hildren Obstructiv e sleep apnea syndrome 33856943 G47.33 + home studyLikel y also [facility] ed the risks of uncorrecte d NELSON, including deathTitra tion tonight Chronic cough 02669103 R 05.3 BNP, IGGs, Quantifero n GOLD, eosinophil s, IGE all normalEcho cardiogram completed this yearWeight loss Dependence on supplemental oxygen 4211171020 07 Z99.81 Reports she was discharged from [facility] in September with O2I do not have these records, staff requested Pneumonia 371422844 J18. 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 cm per dictationC T chest completed 03/2022 with multiple nodules:LL L density has decreased in size to 3cmAlso with GGO to LUL7mm RLL4mm RLL pleural vkebm1jb or less to MADDIE (six of them)5mm to LUL5mm to LLL Congestive heart failure 90412083 I50.9 Follows cardiology Dyspnea on exertion 6084 5006 R06.09 Multifacto ral Body mass index 40+ - severely obese 672677589 Z68.42 Has bariatric referral [id number] ERIC Cm [facility] [place] [address] [place] [address] 03/04/2023 10:01:44 03/04/2023 10:37:58 Migraine 56307390 G43.909 Restless legs 83677255 G 25.81 Edema 183634913 R60.9 Nausea 593600676 R11.0 Acute pharyngitis 567544 003 J02.9 Chronic ob structive pulmonary disease 84518841 J44.9 Asthma 643355549 J45.90 9 [id number] ERIC Cm [facility] [place] [address] [facility] [place] [address] 07/17/2023 09:17:05 07/17/2023 10:12:20 Essential hypertension 62196231 I10 Alpha-1-an titrypsin deficiency 74562219 E88.01 Irritable bowel syndrome characterized by constipation 389068445 K58.1 Onychomycosis 741898381 B35.1 right great toe Nausea 325602216 R11.0 Migraine 30329368 G43.90 9 Allergic rhinitis 449178 04 J30.9 Traumatic tear of right supraspinatus tendon 3671298710 0840199 S43.401D Chronic ob structive pulmonary disease 16180715 J44.9 Bronchitis 46822211 J40 Sinusitis 62800499 J32.9 Asthma 375519080 J45.90 9 Chronic back pain 465365 002 M54.9 Depressive disorder 3548 9007 F32.A Gastroesop hageal reflux disease 157867684 K21.9 Obesity 265998428 E66.9 Vitamin D deficiency 347 82793 E55.9 Hyperlipidemia 44426805 E78.5 Obstructiv e sleep apnea syndrome 75579607 G47.33 Restless legs 47035574 G 25.81 Vitamin D below reference range 392936792 E55.9 Stricture of esophagus 27559162 K22.2 [id number] ERIC Cm [facility] [place] [address] [facility] [place] [address] 09/15/2023 11:00:27 09/15/2023 11:41:54 Asthma 705881651 J45.909 Chronic ob structive pulmonary disease 76849038 J44.9 Tendinitis of right supraspinatus tendon 2836388277 4840701 M75.81 Bilateral hip joint pain 0980538008 1189696 M25.551 M25.552 Obesity 973770411 E66.9 Vitamin D deficiency 347 00598 E55.9 Gastroesop hageal reflux disease 873146180 K21.9 Anxiety disorder 5657457 06 F41.9 Alpha-1-an titrypsin deficiency 39537789 E88.01 Essential hypertension 95755859 I10 Gastroesop hageal reflux disease without esophagitis 993640541 K21.9 Hyperlipidemia 54416613 E78.5 Obstructiv e sleep apnea syndrome 87687413 G47.33 Restless legs 30215802 G 25.81 Depressive disorder 3548 9007 F32.A [id number] ERIC Cm [facility] [address] [place] [address] [place] [address] 12/26/2023 11:41:18 12/26/2023 12:27:46 Dysuria 51905610 R30.0 Gastroesop hageal reflux disease 253090735 K21.9 Asthma 582408640 J45.90 9 Restless legs 86424420 G 25.81 Migraine 81053432 G43.90 9 Essential hypertension 95786736 I10 Edema 106761448 R60.9 Nausea 031992993 R11.0 Allergic rhinitis 394895 04 J30.9 Vitamin D below reference range 953735302 E55.9 Painful ur ging to urinate 42238302 R30.0 Gastroesop hageal reflux disease without esophagitis 543296995 K21.9 [id number] ERIC Cm [facility] [address] [place] [address] [place] [address] 01/21/2024 16:13:25 01/21/2024 16:59:33 Right flank pain 487090563 R10.9 Obesity 524208062 E66.9 Allergic rhinitis 162577 04 J30.9 Pain of ri ght knee region 3941129736 56434 M25.561 Asthma 133670772 J45.90 9 Chronic back pain 065778 002 M54.9 Gastroesop hageal reflux disease 898267563 K21.9 Vitamin D deficiency 347 57384 E55.9 Alpha-1-an titrypsin deficiency 04057367 E88.01 Anxiety disorder 0913855 06 F41.9 Chronic ob structive pulmonary disease 87124928 J44.9 Congestive heart failure 56840338 I50.9 Essential hypertension 75835522 I10 Gastroesop hageal reflux disease without esophagitis 221486403 K21.9 Hyperlipidemia 21989707 E78.5 Obese 709922031 E66.9 Vitamin D below reference range 354535808 E55.9 Traumatic tear of right supraspinatus tendon 7477799046 7357688 S43.401D [id number] Pia Reddy [facility] [place] [address] [place] [address] 08/26/2024 14:15:31 08/26/2024 16:31:43 Low back pain 582921919 M54.50 Asthma 747999081 J45.90 9 Long-term current use of opiate analgesic drug 9711482691 59957 Z79.891 Allergy to wasp venom 42 5514928 Z91.038 Vitamin D deficiency 347 51205 E55.9 Chronic ob structive pulmonary disease 90169610 J44.9 Congestive heart failure 68082416 I50.9 Essential hypertension 95349291 I10 Scoliosis deformity of spine 885936098 M41.9 Vitamin D below reference range 076768330 E55.9 Hyperlipidemia 56061809 E78.5 Health Concerns Section Related Observation LastModified by Organization Detai ls LastModified Time None Recorded Concern Status LastModified by Organization Details LastModified Time None Recorded Advance Directives Directive None Recorded Payers Encounter Date Sequence Insurance Name Policy Number Policy Dupont Covered Member ID Dupont Member ID Guarantor Name 07/17/2023 1 [facility] ON OR AFTER 11/16/20 (MEDICAID REPLACEMENT - HMO) Octavia Smith [id number] Octavia Smith 09/15/2023 1 [facility] ON OR AFTER 11/16/20 (MEDICAID REPLACEMENT - HMO) Octavia Smith [id number] Octavia Smith 12/26/2023 1 [facility] ON OR AFTER 11/16/20 (MEDICAID REPLACEMENT - HMO) Octavia Smith [id number] Octavia Smith 01/21/2024 1 [facility] ON OR AFTER 11/16/20 (MEDICAID REPLACEMENT - HMO) Octavia Smith [id number] Octavia Smith Notes Date Note Type Note Provider Name and Address Organization Details Recorded Time 07/17/2023 text/html at [facility] , flu , on robi Castro PA [address], [place], [address], [employer] 07/23/2023 10:16:53 09/15/2023 text/html pain down in to the right elbow ERIC Cm [address], [place], [address], [employer] 09/21/2023 17:36:50 12/26/2023 text/html sees GI in February . burning with urination , too ERIC Cm [address], [place], [address], [employer] 01/07/2024 13:51:25 01/21/2024 text/html right flank pain , no fever , chills , right knee pain continues ERIC Cm [address], [place], [address], [employer] 02/03/2024 10:03:02 OBGyn Episode No OBEpisode recorded.
[2024-09-04 17:51] VITALS: BP 124/75; PULSE 73; RESP 16; TEMP 36.9; O2SAT 100
[2024-09-04 20:38] VITALS: BP 116/82; PULSE 71; RESP 16; O2SAT 98
--- NOTE | 2024-09-04 20:39 | PC.NURSE ---
Pt. states she does not have to urinate right now but will let this RN know when she can go.
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
--- OUTSIDE RECORDS SUMMARY | 2024-09-04 20:49 | XMS_ITS | Clinical Summary ---
Author Organization [facility] Address [address] [place] [address] Care Team Providers Care Pets And Pet Supplies Salesperson Name Role Phone Zaheer Castro Primary Care [...] Beans Angioedema High 10/25/2021 Latex Rash Medium [place] Rash Medium 04/06/2020 Morphine Rash Medium 04/28/2020 [...] (04/24/2022): Added automatically from request for surgery [id number] Sepsis 10/23/2021 Eosinophilic esophagitis 12/11/2020 Overview (12/11/2020): Added automatically from request for surgery [id number] Gastroesophageal reflux disease without esophagi tis 09/08/2020 Overview (09/08/2020): Added automatically from request for surgery [id number] Severe persistent asthma without complication Hypertension 04/28/2020 [...] often do you attend chur ch or jehovah's witness services? Never 11/01/2021 Do you belong to any clubs o r organizations such as shinto groups, unions, fraternal or athletic groups, or [...] place to sleep or slept in a correction (including now)? 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 Gender Identity Not on file Sexual Orientation [...] CDT Respiratory Rate 17 05/31/2022 2:50 PM SENIOR MATERIALS SCIENTIST Oxygen Saturation 97% 02/05/2024 1:04 PM CDT [...] patient's age to complete this topic Insurance [facility] Advance Directives For more information, please contact: [phone] Documents on File Type Date Recorded Patient Mid Level Net Developer Expl anation ADVANCE DIRECTIVE 10/28/2021 4:10 PM POWER OF LINE TECHNICIAN-MEDICAL * Full Code (Latest Code Status on File) Date Activated Date Inactivated Comments 05/31/2022 1:12 PM 05/31/2022 7:12 PM * Full Code Date Activated Date Inactivated Comments 10/24/2021 2:27 AM 10/28/2021 8:44 PM * Full Code Date Activated Date Inactivated Comments 01/18/2021 6:54 AM 01/18/2021 12:36 PM * Full Code Date Activated Date Inactivated Comments 10/05/2020 11:31 AM 10/05/2020 6:04 PM Care Teams Pets And Pet Supplies Salesperson Relationship Specialty Start Date End Date Zaheer Castro PA [address] [place] [address] PCP - General Internal Medicine 09/11/23
--- OUTSIDE RECORDS SUMMARY | 2024-09-04 20:49 | XMS_ITS | Referral Summary ---
Author Organization [facility] Address [address] [place] [address] Care Team Providers Care Dairy Products Maker Name Role Phone Zaheer Castro Primary Care [...] Beans Angioedema High 10/25/2021 Latex Rash Medium [place] Rash Medium 04/06/2020 Morphine Rash Medium 04/28/2020 [...] (04/24/2022): Added automatically from request for surgery [id number] Sepsis 10/23/2021 Eosinophilic esophagitis 12/11/2020 Overview (12/11/2020): Added automatically from request for surgery [id number] Gastroesophageal reflux disease without esophagi tis 09/08/2020 Overview (09/08/2020): Added automatically from request for surgery [id number] Severe persistent asthma without complication Hypertension 04/28/2020 [...] How often do you attend chur or synagogue services? 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 Gender Identity Not on file Sexual Orientation Not on file Last Filed Vital Signs Vital Sign Reading Time Taken Comments Blood Pressure 128/64 02/05/2024 1:04 PM CDT Pulse 85 02/05/2024 1:04 PM CDT Temperature 36.2 C (97.2 F) 02/05/2024 1:04 PM CDT Respiratory Rate 17 05/31/2022 2:50 PM GEMOLOGIST Oxygen Saturation 97% 02/05/2024 1:04 PM CDT Inhaled Oxygen Concentration - - Weight 144.2 kg (318 lb) 02/05/2024 1:04 PM CDT Height 165.1 cm (5' 5 ) 02/05/2024 1:04 PM CDT Body Mass Index 52.92 02/05/2024 1:04 PM CDT Plan of Treatment Not on file Insurance [facility] Advance Directives For more information, please contact: [phone] Documents on File Type Date Recorded Patient Field Supervisor Seed Production Expl anation ADVANCE DIRECTIVE 10/28/2021 4:10 PM POWER OF FREIGHT TRUCKER-MEDICAL * Full Code (Latest Code Status on File) Date Activated Date Inactivated Comments 05/31/2022 1:12 PM 05/31/2022 7:12 PM * Full Code Date Activated Date Inactivated Comments 10/24/2021 2:27 AM 10/28/2021 8:44 PM * Full Code Date Activated Date Inactivated Comments 01/18/2021 6:54 AM 01/18/2021 12:36 PM * Full Code Date Activated Date Inactivated Comments 10/05/2020 11:31 AM 10/05/2020 6:04 PM Care Teams Dairy Products Maker Relationship Specialty [place] [address] [place] [address] PCP - General Internal Medicine 09/11/23
--- OUTSIDE RECORDS SUMMARY | 2024-09-04 20:49 | XMS_ITS | Clinical Summary ---
Author Organization [facility] Address [address] [place] [address] Care Team Providers Care Hand Flesher Name Role Phone Dulce Carpio MD Primary Care Provider [phone] Allergies Active Allergy Reactions Criticality Noted Date [...] to complete this topic Insurance Care Teams Hand Flesher Relationship Specialty Start Date End Date Dulce Carpio MD [address] [place] [address] PCP - General CARDIOVASCULAR DISEASE 10/17/21
--- OUTSIDE RECORDS SUMMARY | 2024-09-04 20:49 | XMS_ITS | Clinical Summary ---
Author Organization [facility] Address [address] [place] [address] Care Team Providers Care Waste Water Treatment Plant Operator Name Role Phone Tc Garcia MD Primary Care Provider [phone] Source Comments [facility],non-owned Affiliates and Associated Physician Practices is amultiple site organization consisting of ambulatory clinics and hospital sitesin [place], [place], [place] and [place]. This disclosure is being madepursuant to the Care Everywhere program and may not contain all information available regarding this patient. 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
[2024-09-04 20:59] LABS: Basophils Percent Auto 0.5 % (0.2-1.2); Eosinophils Absolute Auto 0.4 K/mm3 (0-0.3); Eosinophils Percent Auto 5.4 % (0-4.4); Hematocrit 39.3 % (37.0-47.0); Hemoglobin 12.3 g/dL (12.0-15.0); Immature Granulocyte Absolute 0.03 K/mm3 (0.00-0.031); Immature Granulocyte Percent A 0.4 % (0-0.5); Lymphocytes Absolute Auto 2.05 K/mm3 (0.9-3.2); Lymphocytes Percent Auto 26.6 % (18.3-44.2); Mean Corpuscular HGB Conc 31.3 g/dl (32-36); Mean Corpuscular Volume 86.2 fl (80-100); Monocytes Absolute Auto 0.5 K/mm3 (0.1-0.6); Monocytes Percent Auto 6.2 % (2.6-8.5); Neutrophils Absolute Auto 4.7 K/mm3 (1.3-6.7); Neutrophils Percent Auto 60.9 % (45.5-73.1); Platelet Count Result 263 k/mm3 (150-375); Red Blood Count 4.56 M/mm3 (4.2-5.4); White Blood Count 7.7 K/mm3 (4.5-10.0)
[2024-09-04 21:15] LABS: Alanine Aminotransferase 19 U/L (6-35); Albumin Level 4.1 g/dL (3.5-5.1); Alkaline Phosphatase 90 U/L (38-126); Anion Gap 8 mmol/L (4-12); Aspartate Amino Transferase 22 U/L (14-36); Bilirubin,Total 0.3 mg/dL (0.2-1.3); Blood Urea Nitrogen 12 mg/dL (7-17); Calcium 8.9 mg/dL (8.4-10.2); Carbon Dioxide 28 mmol/L (22-30); Chloride 104 mmol/L (98-107); Estimated CRCL calculation 107 ml/min; Estimated Glomerular Filt Rate > 60; Glucose 107 mg/dL (65-110); Lipase 41 U/L (23-300); Magnesium 2.1 mg/dL (1.6-2.3); Potassium 3.8 mmol/L (3.4-5.0); Sodium 140 mmol/L (137-145)
--- NOTE | 2024-09-04 21:21 | ECG_ITS ---
Test Date: 2024-09-04 21:32:00 Measurements Intervals [place] Rate: 75 P: 37 DE: 152 QRS: 12 QRSD: 82 T: 30 QT: 383 QTc: 429 Interpretive Statements SINUS RHYTHM LOW QRS VOLTAGE IN PRECORDIAL LEADS BASELINE ARTIFACT- I, II, AVR BORDERLINE ECG No previous ECG available for comparison Electronically Signed On 09-05-2024 07:36:23 CDT by Lucian Almonte D.O.
--- NOTE | 2024-09-04 21:23 | ED_ITS ---
HPI - Abdominal Pain General Chief Complaint: Abdominal Pain Stated Complaint: Sciatic pain-goes around abdomen/back Time Seen by Provider: 09/04/24 20:09 History of Present Illness HPI narrative: Patient is a 44-year-old female who presents emergency department this evening with multiple chronic complaints. Patient states that she has been having abdominal pain, lower back pain and chest pain for the past 3 months. Denies any recent falls or trauma. Admits that she has not followed up with anyone, states that she has been trying to get in with some GI physicians and a manager laboratory but her insurance does not take them and is requesting a different GI and Cardiology referral. Denies any recent illness, any fevers or chills, any nausea vomiting or diarrhea. Related Data Home Medications ?Medication ?Instructions ?Recorded ?Confirmed ?Last Taken ?Type albuterol sulfate 2.5 mg/3 mL 3 ml inhalation Q4H PRN Shortness 11/03/21 07/11/23 Unknown History (0.083 %) solution for nebulization Of Breath mometasone-formoterol HFA 200 200 inh inhalation BID 11/03/21 07/11/23 Unknown History mcg-5 mcg/actuation aerosol inhaler (Dulera) [id number]-[id number]-[id number] 1 tablet PO Q4-6H PRN Migraine 11/07/21 07/11/23 Unknown History 50 mg-325 mg-40 mg tablet Headache pantoprazole 40 mg tablet,delayed 40 mg PO BID 11/07/21 07/11/23 Unknown History release buspirone 10 mg tablet 10 mg PO DAILY 09/30/22 07/11/23 Unknown History furosemide 20 mg tablet 40 mg PO DAILY 09/30/22 07/11/23 Unknown History losartan 100 mg tablet 50 mg PO DAILY 09/30/22 07/11/23 Unknown History gabapentin 300 mg capsule 300 mg PO DAILY 01/15/23 07/11/23 Unknown History ciprofloxacin HCl 500 mg tablet mg PO 03/02/24 Unknown History ondansetron 4 mg disintegrating 8 mg PO Q8H PRN nausea and vomiting 03/02/24 Unknown History tablet Allergies Allergy/AdvReac Type Severity Reaction Status Date / Time artichoke Allergy Severe HIVES Verified 03/02/24 09:38 morphine Allergy Severe BURNING AT Verified 03/02/24 09:38 THE SITE NSAIDS (Non-Steroidal Allergy Severe ASTHMA/HIVE Verified 03/02/24 09:38 Anti-Inflamma S peanut Allergy Severe HIVES Verified 03/02/24 09:38 pineapple Allergy Severe Swelling Verified 03/02/24 09:38 of Lip/Tongue/Throat Sulfa (Sulfonamide Allergy Severe ASTHMA/HIVE Verified 03/02/24 09:38 Antibiotics) S tramadol Allergy Severe HIVES Verified 03/02/24 09:38 latex Allergy Intermediate Rash Verified 03/02/24 09:38 pomegranate Allergy Intermediate HIVES Verified 03/02/24 09:38 aspirin Allergy Mild Dyspnea / Verified 03/02/24 09:38 SOB blue dye Allergy Mild Unknown Verified 03/02/24 09:38 codeine Allergy Mild Dyspnea / Verified 03/02/24 09:38 SOB ibuprofen Allergy Mild Unknown Verified 03/02/24 09:38 peanut oil Allergy Mild Unknown Verified 03/02/24 09:38 Penicillins Allergy Mild Unknown Verified 03/02/24 09:38 strawberry Allergy Mild Swelling Verified 03/02/24 09:38 of Lip/Tongue/Throat beclomethasone (From Qvar) Allergy Unknown Verified 03/02/24 09:38 budesonide (From Symbicort) Allergy Unknown Verified 03/02/24 09:38 cephalexin (From Keflex) Allergy Rash Verified 03/02/24 09:38 formoterol (From Symbicort) Allergy Unknown Verified 03/02/24 09:38 fabian Allergy Severe Rash Uncoded 03/02/24 09:38 [place] SAUSAGE Allergy Severe DIARRHEA/HI Uncoded 03/02/24 09:38 VES cueto beans Allergy Severe Unknown Uncoded 03/02/24 09:46 TILAPIA Allergy Severe SWOLLEN Uncoded 03/02/24 09:38 GLANDS Cueto Armendariz Allergy Intermediate SORE THROAT Uncoded 03/02/24 09:38 BLUEBERRIES Allergy Mild Unknown Uncoded 03/02/24 09:38 Review of Systems 2 Review of Systems: All systems are reviewed and are negative unless stated otherwise in the HPI. [facility] Past Medical History Medical History Migraine Noncompliance GERD (gastroesophageal reflux disease) IBS (irritable bowel syndrome) COPD (chronic obstructive pulmonary disease) Heart failure Asthma Acute hypoxic respiratory failure Gastro-esophageal reflux Nexplanon insertion insertion - 01/17/2020 History of esophageal dilatation Carpal tunnel syndrome Neuropathy involving both lower extremities IBS (irritable bowel syndrome) NELSON (obstructive sleep apnea) Morbid obesity Asthma (Unknown) Anxiety Depression Hypercholesterolemia Hypertension Surgical History Surgical History History of cholecystectomy History of section Family History Family History Mother Hypertension Father Hypertension Asthma Social History Social History Social History: Ms. Smith lives with her mother. She designates her mother, Nannette, as her surrogate decision maker. She would like to be a full code. Years smoked: 25 Smoking status: Never smoker Tobacco type: cigarettes Additional smoking assessment comments: quit in 2019 Alcohol intake: unknown Alcohol use details: No alcohol in >6 months Substance use: current Substance use type: does not use and marijuana Other substance usage details: gummies for pain Do You Feel Safe in your Home?: Yes Lack of Transportation: No Lack of Food: Never True Current Housing: I Have Housing Concerned About Future Housing: No Difficulty Paying Gas/Electric Bills: No Difficulty Paying for Meds: No Currently Unemployed: No Education: High School Diploma/GED Difficulty w/ Childcare or Family Care: No Living arrangements: with family Occupation/Education: occupation Gender identity (if verbalized by the patient): Female Sexual Orientation (if Verbalized by the Patient): Straight or Heterosexual Spiritual care concerns: No Exam 2 Narrative: General: Alert, awake, afebrile, in no acute distress, obese. HEENT: PERRL, no rhinorrhea, no post nasal drip, oropharynx clear. Neck: Trachea midline, no JVD, no lymphadenopathy. Cardiovascular: Regular rate and rhythm, no murmurs, rubs or gallops, no peripheral edema. Respiratory: Clear to auscultation bilaterally, no tachypnea, no wheezing, no rhonchi, no rubs, no respiratory distress. Abdomen: Soft, nonspecific tenderness palpation across the mid abdomen, nondistended, no rebound, no guarding, no peritoneal signs. Musculoskeletal: No joint swelling or deformity, normal muscle tone. Skin: No rashes or petechia, no signs of infection. Psychiatric: Alert and oriented, normal behavior and judgment for situation. Neurological: Alert and oriented to person, place, and time. Follows all commands. No focal deficits, speech is clear and fluent. Course Vital Signs Vital signs: Vital Signs Temperature 98.5 F 09/04/24 17:51 Pulse Rate 73 09/04/24 17:51 Respiratory Rate 16 09/04/24 17:51 Blood Pressure 124/75 09/04/24 17:51 Pulse Oximetry 100 09/04/24 17:51 Temperature 98.5 F 09/04/24 17:51 Pulse Rate 70 09/04/24 22:59 Respiratory Rate 14 09/04/24 22:59 Blood Pressure 105/94 H 09/04/24 22:59 Pulse Oximetry 95 09/04/24 22:59 MDM - Abdominal Pain MDM Narrative Medical decision making narrative: The patient was evaluated by myself in the emergency department. History is obtained from patient who is an independent historian and physical exam was performed. External medical records were reviewed at this time. IV was established and pertinent tests were ordered. EKG was obtained which revealed sinus rhythm rate of 75 beats per minute, no evidence of acute ischemia. EKG was independently interpreted by me and is currently pending official cardiology read. Laboratory results obtained revealing no acute process. Troponin negative, urinalysis did reveal urinary tract infection. Imaging studies obtained included CXR, CT lumbar spine without IV contrast and CT abdomen and pelvis with IV contrast which was independently interpreted by me revealing: No acute findings in the abdomen and pelvis, no acute fracture or subluxation of the lumbar spine pain. Differential diagnosis considerations include peptic ulcer disease, gastritis, infectious process such as pneumonia, dehydration, electrolyte derangements. Comorbidities impacting this visit include none. I have evaluated and discussed social determinants of health with the patient that could potentially impact subsequent diagnosis and treatment plans. On repeat assessment of the patient, reevaluation revealed that the patient is doing well and is in no acute distress. Patient symptoms have improved since she arrived to our emergency department. Repeat vital signs were all reviewed and noted to be stable. Differential diagnosis and treatment plan were discussed with the patient at bedside. Patient agrees with discussion and after shared medical decision making agrees with discharge. All questions were answered to the patient's satisfaction. Patient will follow up with her PCP in 3-5 days. A script for fosfomycin 3 g was was sent to patient's pharmacy giving her extensive antibiotic allergy. She was provided with cardiology/GI referral per her request. Patient was provided with strict return precautions and instructed to return to the emergency department if any new or worsening symptoms develop. The patient was discharged in stable condition. Lab Data 09/04/24 20:41 09/04/24 20:41 Labs: Lab Results 09/04/24 09/04/24 09/04/24 Range/Units 20:40 20:41 22:35 WBC 7.7 (4.5-10.0) K/mm3 RBC 4.56 (4.2-5.4) M/mm3 Hgb 12.3 (12.0-15.0) g/dL Hct 39.3 (37.0-47.0) % MCV 86.2 (80-100) fl MCH 27.0 (26-34) pg MCHC 31.3 L (32-36) g/dl RDW 15.0 H (11.5-14.5) % Plt Count 263 (150-375) k/mm3 MPV 10.0 (7.4-10.4) fl Immature Gran % (Auto) 0.4 (0-0.5) % Neut % (Auto) 60.9 (45.5-73.1) % Lymph % (Auto) 26.6 (18.3-44.2) % Weber % (Auto) 6.2 (2.6-8.5) % Eos % (Auto) 5.4 H (0-4.4) % Baso % (Auto) 0.5 (0.2-1.2) % Lymph # (Auto) 2.05 (0.9-3.2) K/mm3 Weber # (Auto) 0.5 (0.1-0.6) K/mm3 Eos # (Auto) 0.4 H (0-0.3) K/mm3 Baso # (Auto) 0.0 (0.0-0.1) K/mm3 Abs Immat Gran (auto) 0.03 (0.00-0.031) K/mm3 Absolute Neuts (auto) 4.7 (1.3-6.7) K/mm3 Absolute Nucleated RBC 0.000 (0.0-0.012) K/mm3 Nucleated RBC % 0.0 (0.0-0.2) % Sodium 140 (137-145) mmol/L Potassium 3.8 (3.4-5.0) mmol/L Chloride 104 (98-107) mmol/L Carbon Dioxide 28 (22-30) mmol/L Anion Gap 8 (4-12) mmol/L BUN 12 D (7-17) mg/dL Creatinine 0.86 (0.7-1.0) mg/dL Estim Creat Clear Calc 107 ml/min Estimated GFR > 60 (59 - ) Glucose 107 (65-110) mg/dL Calcium 8.9 (8.4-10.2) mg/dL Magnesium 2.1 (1.6-2.3) mg/dL Total Bilirubin 0.3 (0.2-1.3) mg/dL AST 22 (14-36) U/L ALT 19 (6-35) U/L Alkaline Phosphatase 90 (38-126) U/L Troponin I < 0.012 (0.000-0.034) ng/mL Total Protein 8.0 (6.3-8.2) g/dL Albumin 4.1 (3.5-5.1) g/dL Lipase 41 (23-300) U/L Urine Color Yellow (Yellow) Urine Appearance Clear (Clear) Urine pH 6.0 (5.0-9.0) Ur Specific [place] 1.036 H (1.001-1.035) Urine Protein Trace (Negative) mg/dL Urine Glucose (UA) Negative (Negative) mg/dL Urine Ketones Trace H (Negative) mg/dL Ur Blood (Man) 3+ H (Negative) Urine Nitrate Negative (Negative) Urine Bilirubin Negative (Negative) Urine Urobilinogen 1.0 (<2.0) mg/dL Leukocyte Esterase Rfl Trace H (Negative) MANI/UL Urine RBC 21-50 H (0-2) /hpf Urine WBC 6-10 H (0-3) /hpf Ur Squamous Epith Cells Occasional (Few) /hpf Urine Bacteria Rare /hpf Urine Casts 0-2 Imaging Data Radiologist's impression: ITS Impressions Chest X-Ray 09/04/24 22:09 IMPRESSION: Haziness in the left lung base which may indicate atelectasis versus early pneumonia. Follow-up advised. Discharge Plan Discharge Clinical Impression: Chronic abdominal pain, Nonspecific chest pain, Urinary tract infection, Lower back pain Patient Disposition: Home Condition: Improved Instructions: Antibiotic Form, Chest Pain (DC), Urinary Tract Infection in Women (ED), Abdominal Pain (ED), Back Pain (ED) Additional Instructions: Please follow-up with your family doctor within the next 3-5 days. Your provided with GI and Cardiology referral per your request instructed to call to set up a follow-up appointment. Return to the emergency department if any new or worsening symptoms develop. Take the prescribed antibiotic as instructed for urinary tract infection. Patient Language: [place] Prescriptions: New fosfomycin tromethamine 3 gram packet 3 g PO ONCE Qty: 1 0RF No Action ondansetron 4 mg tablet,disintegrating 8 mg PO Q8H PRN (Reason: nausea and vomiting) ciprofloxacin HCl 500 mg tablet PO albuterol sulfate [ProAir HFA] 90 mcg/actuation HFA aerosol inhaler 1 inh inhalation Q4H PRN (Reason: shortness of breath or wheezing) Qty: 8.5 6RF gabapentin 300 mg capsule 300 mg PO DAILY buspirone 10 mg tablet 10 mg PO DAILY furosemide 20 mg tablet 40 mg PO DAILY losartan 100 mg tablet 50 mg PO DAILY albuterol sulfate 2.5 mg /3 mL (0.083 %) solution for nebulization 3 ml inhalation Q4H PRN (Reason: Shortness Of Breath) Dulera 200-5 mcg/actuation HFA aerosol inhaler 200 inh INHALATION BID pantoprazole 40 mg Tablet,Delayed Release (Dr/Ec) 40 mg PO BID lssjrxfqms-[id number]-pqoa 50-325-40 mg Tablet 1 tablet PO Q4-6H PRN (Reason: Migraine Headache) Follow-up/Referrals: Matthew,ERIC Mancia [Primary Care Provider] - 1 Week Lucian Almonte DO [Physician] - 3 Days Benjie Saleh MD [Physician] - 3 Days Time of Disposition: 01:47
[2024-09-04 21:47] LABS: Troponin I < 0.012 ng/mL (0.000-0.034)
[2024-09-04 22:59] VITALS: BP 105/94; PULSE 70; RESP 14; O2SAT 95
[2024-09-04 23:10] LABS: Add Urine Microscopic? YES; Appearance Urine Clear (Clear); Bacteria Urine Rare /hpf; Bilirubin Urine Negative (Negative); Blood Urine 3+ (Negative); Color Urine Yellow (Yellow); Glucose Urine UA Negative (Negative); Ketones Urine Trace mg/dL (Negative); Leukocyte Esterase Ur Trace LEU/UL (Negative); Nitrate Urine Negative (Negative); Non Pathogenic Casts 0-2; Protein Urine Trace mg/dL (Negative); RBC Urine 21-50 /hpf (0-2); Specific Grav Ur 1.036 (1.001-1.035); Squamous Epithelial Cell Urine Occasional /hpf (Few)
[2024-09-05 03:12] VITALS: BP 118/76; PULSE 68; RESP 16; TEMP 36.6; O2SAT 98
== END 2024-09-05 03:13 | disposition home or self-care (01) ==
PROVIDERS: Emergency Provider Emergency Medicine; PCP Physician Assistant
DX: R07.9 Chest pain, unspecified (principal); N39.0 Urinary tract infection, site not specified; R10.9 Unspecified abdominal pain; G89.29 Other chronic pain; K21.9 Gastro-esophageal reflux disease without esophagitis; J44.9 Chronic obstructive pulmonary disease, unspecified; I50.9 Heart failure, unspecified; G47.33 Obstructive sleep apnea (adult) (pediatric); E78.00 Pure hypercholesterolemia, unspecified; I11.0 Hypertensive heart disease with heart failure; E66.01 Morbid (severe) obesity due to excess calories; Z68.43 Body mass index [BMI] 50.0-59.9, adult
CPT/HCPCS: 36415; 71045; 72132; 74177; 80053; 81001; 83690; 83735; 84484; 85025; 87086; 93005; 99284; Q9967